=== PATIENT | male | born 1955 | race Caucasian/White ===

== ENCOUNTER 2017-08-12 10:31 | Inpatient (IN) | payer OTHER ==
[~2017-08-12] VITALS: Ht 182.9 cm; Wt 92.5 kg
--- NOTE | 2017-08-12 12:24 | ED ANKLE/FOOT INJURY COMPLAINT ---
History of Present Illness General Chief Complaint: Foot or Ankle Injury Stated Complaint: C/O RIGHT FOOT PAIN HX OF DIABETES Source: patient, old records Exam Limitations: no limitations Vital Signs & Intake/Output Vital Signs & Intake/Output Vital Signs Date Time Temp Pulse Resp B/P B/P Pulse O2 O2 Flow FiO2 Mean Ox Delivery Rate 08/14 1530 98.1 75 20 110/62 97 Room Air 08/14 0616 97.6 75 20 110/72 95 Room Air 08/13 2218 98.5 88 18 114/60 95 Room Air ED Intake and Output 08/14 0000 08/13 1200 Intake Total 1325 650 Output Total 900 1350 Balance 425 -700 Intake, IV 525 650 Intake, Oral 800 Output, Urine 900 1350 Allergies Coded Allergies: No Known Allergies (08/12/17) Triage Note: PT TO ED WITH C/O "2 DAYS AGO I NOTICED DISCOLORATION TO MY RIGHT MIDDLE TOES, NOT THE BIG TOE OR THE PINKY TOE". PT STATING HX OF DIABETES. Triage Nurses Notes Reviewed? yes Occurred: last week Duration: week(s): (1), constant Timing: recent history Severity: moderate Severity Numbers: 10 Pain/Injury Location: Right: Foot. Method of Injury: unknown No Modifying Factors: none Associated Symptoms: swelling, redness HPI: 62-year-old male with no known medical history presents to the ER for evaluation. He states for the past few weeks he is noticed to sores to the bottom of his right foot. He denies any known injury or trauma. He states about 2 days ago he began to notice that his right second and third toes have become discolored and turn purple. The patient does report to decrease sensation in his right foot and it has been swollen. He states that he has been attempting to care for the sores on the bottom of his foot for the past several weeks by himself and it is been draining purulent malodorous discharge. No fever no chills no chest pain no nausea vomiting. He denies urinary urgency frequency malaise. Patient states he's never been diagnosed with diabetes he is never seen a liquor establishment manager regarding these symptoms. (Flo GRIJALVA,Ian) Reconcile Medications No Known Home Medications (Seven CORRALES,[place]) Past History Travel History Traveled to [place] past 21 day No Medical History Any Pertinent Medical History? see below for history Neurological: NONE EENT: NONE Cardiovascular: NONE Respiratory: NONE Gastrointestinal: NONE Hepatic: NONE Renal: NONE Musculoskeletal: NONE Psychiatric: NONE Endocrine: diabetes Blood Disorders: NONE Cancer(s): NONE Surgical History Surgical History: non-contributory Psychosocial History What is your primary language Cuban Tobacco Use: Never used ETOH Use: denies use Illicit Drug Use: denies illicit drug use Family History Hx Contributory? No (Ian Hall) Review of Systems Review of Systems Constitutional: Reports: see HPI. Comments Review of systems: See HPI, All other systems negative. Constitutional, no chills no fever, HEENT: no congestion Cardiovascular: No chest pain Skin: no rashes, no change in skin resp: no dyspnea, no cough GI: No nausea no vomiting, no diarrhea, no bloating/constipation : no frequency Muscle skeletal: No joint pain, no back pain Neurologic: , no headache Psych: No stress Heme/endocrine: No bruising Immunology: No lymphadenopathy (Ian Hall) Physical Exam Physical Exam General Appearance: well developed/nourished, alert, awake Leg/Knee/Thigh Left: normal range of motion Comments: Well-developed well-nourished person in no acute distress HEENT: Normal EENT exam; PERRL, EOMI, HEAD is atraumatic. moist mucous membranes. Neck: Supple, normal range of motion Back: Full range of motion Cardiovascular: Regular rate and rhythms no murmur Respiratory: No respiratory distress. Patient speaking in full complete sentences. Breath sounds clear to auscultation bilaterally: NO W/R/R Abdomen: Soft, nontender nondistended, upper Extremity: No edema, full range of motion of extremities, normal and equal pulses bilaterally, 5 out of 5 strength noted to bilateral upper extremities lower extremities: the right foot is malodoroous, there is purulent discharge from 2 wounds to the plantart aspect of the foot and right 2nd/3/4th toes. the ulcers on the plantar aspect 3x2, 2x2 in dept, bone is exposed, purulent discharge, no surrounding erythema, over the does, there is a near amputation of the right 2nd toe, sloughing of the tissue noted to the distal toes, the foot is edematous, sensation is descreased compared to the left foot, diminished dp pulse to the right foot Neuro: Alert oriented x3, motor sensory normal, cranial nerves II through XII grossly intact. There were no obvious focal neurologic abnormalities. Skin: No appreciable rash on exposed skin, skin is warm and dry. Psych: Mood and affect is normal, memory and judgment is normal. (Flo GRIJALVA,Ian) Progress Differential Diagnosis: osteomyelitis, gangrene, compartment syndrome, arterial insuff, cellutliis, dka, hhs, electroelyte abnormalities Plan of Care: Orders Procedure Date/time Status CBC WITHOUT DIFFERENTIAL 08/15 0600 Active Consistent Carbohydrate 3 08/14 D Active Nothing by Mouth 08/14 B Complete PATHOLOGY SPECIMEN 08/14 1307 Complete Change service to 08/14 0917 Active Skin/Pressure Ulcer Assess (Sk 08/13 1810 Active Current Medications Sig/Rosanne Start time Last Medication Dose Stop Time Status Admin Insulin Detemir 8 UNITS BID 08/14 2200 AC (Levemir) Insulin Aspart 0 AT BEDTIME 08/13 2200 AC 08/13 (NovoLOG) 2212 Insulin Aspart 0 TIDAC 08/13 1700 AC 08/14 (NovoLOG) 1143 Ampicillin Sodium/ 3,000 MG Q6 08/12 2359 AC 08/14 Sulbactam Sodium 1143 (Unasyn) Sodium Chloride 100 ML (Normal Saline 0.9%) Acetaminophen 650 MG Q6P PRN 08/12 1615 AC (Tylenol) Acetaminophen 1,000 MG Q6P PRN 08/12 1615 AC (Ofirmev) Morphine Sulfate 2 MG Q6-PRN PRN 08/12 1615 AC (Morphine) Sodium Chloride 1,000 ML Q13H 08/12 1445 AC 08/13 (Normal Saline 0.9%) 2211 Laboratory Tests 08/14/17 0811: Anion Gap 10, Estimated GFR > 60, BUN/Creatinine Ratio 15.7, CBC w Diff NO MAN DIFF REQ, RBC 3.53 L, MCV 83.4, MCH 27.5, RDW 13.3, MPV 7.6, Gran % 73.1, Lymphocytes % 17.4 L, Monocytes % 6.4, Eosinophils % 2.8, Basophils % 0.3, Absolute Granulocytes 7.8 H, Absolute Lymphocytes 1.9, Absolute Monocytes 0.7 H, Absolute Eosinophils 0.3, Absolute Basophils 0, PUBS MCHC 33.0 LABS ,XRAY AND US ORDERED. PT DECLINING ANYTHING FOR PAIN WHEN OFFERED. 1340 CASE D/W DR DOE, ADVSIED NO ABX AT THIS TIME, HE WILL ATTEMPT OT TAKE HIM TO OR THIS AFTERNOON, PT LAST ATE AT 830. CASE D/W DR AMEZCUA AGREES WITH PLAN I D/W THE PT AT [facility] AND [facility]RAY, PENDING US, AND NEED FOR ADMISSION 1410 case d/w dr gordon, will admit, d/w her request of podiatry for no iv abx until after OR 1650 DR DOE IN DEPT TO SEE PT PATIENT: JAIME MCKAY PRESENT AGE: 62 PATIENT ACCOUNT NO: [id number] : 56 LOCATION: [facility] ORDERING PHYSICIAN: Ian GRIJALVA SERVICE DATE: 08/12/17 EXAM TYPE: US - US-DUPLEX SCAN LOWER EXT ARTER EXAMINATION: COLOR-FLOW DUPLEX IMAGING OF THE RIGHT LOWER EXTREMITY ARTERIAL SYSTEM. VELOCITY MEASUREMENTS THROUGHOUT THE FEMORAL ARTERIES WITH PERIPHERAL ARTERIAL TESTING. CLINICAL INFORMATION: There is a 62-year-old male with a history of peripheral arterial disease. Discolored right foot. Numbness. Unable to palpate pulses. RIGHT FEMORAL RUNOFF VELOCITIES: The right common femoral artery measures 134 cm/s The right profunda femoral artery is 94 cm/s Right proximal superficial femoral artery measures 131 cm/s Mid superficial femoral artery is 150 cm/s Distal right superficial femoral artery measures 125 cm/s Right popliteal velocity measures 118 cm/s The posterior tibial artery velocity measures 123 cm/s The anterior tibial artery velocity measures 113 cm/s The dorsalis pedis artery velocity measures 109 cm/s. IMPRESSION: 1. Normal peripheral arterial testing with normal ankle-brachial indices and velocity measurements. DICTATED BY: Jaime Centeno MD DATE/TIME DICTATED:08/12/171446 FAMILY PSYCHOLOGIST:YVETTE DATE/TIME TRANSCRIBED:08/12/171446 CONFIDENTIAL, DO NOT COPY WITHOUT APPROPRIATE AUTHORIZATION. <Electronically signed in Other Vendor System> SIGNED BY: Jaime Centeno MD [id number] PATIENT: JAIME MCKAY PRESENT AGE: 62 PATIENT ACCOUNT NO: [id number] : 56 LOCATION: [facility] ORDERING PHYSICIAN: Ian GRIJALVA SERVICE DATE: 08/12/17 EXAM TYPE: RAD - XRY-FOOT COMPLETE, R EXAMINATION: XR FOOT, RIGHT CLINICAL INFORMATION: Right foot ulcers COMPARISON: None TECHNIQUE: AP, lateral, and oblique views of the right foot. FINDINGS: There are erosions on both sides of the first MTP joint, with mild hallux valgus deformity. There is periosteal reaction along the diaphysis of the first metatarsal. There is soft tissue gas spanning much of the width of the foot, seen along the plantar surface and the lateral view, at the level of the MTP joints which limits evaluation of the osseous structures. The head of the second metatarsal is not clearly delineated and may be eroded or fractured. The base of the second proximal phalanx is shifted laterally and may be affected by erosions. There is dislocation at the second PIP joint, with medial displacement of the middle phalanx and lateral angulation. There may be dorsal subluxation of the third proximal phalanx at the MTP joint. There is suggestion of fracture at the base of the fourth proximal phalanx, with the distal portion displaced medially. There is diffuse soft tissue swelling of the foot. There are degenerative changes in the tarsotarsal articulations. Mild posterior and plantar calcaneal spurring is noted. IMPRESSION: Abnormalities in the regions of the first through fourth MTP joints as detailed above. These include erosions at the first MTP joint, subluxation of the second through fourth MTP joints, and fracture versus erosion at the head of the second metatarsal. Additional erosions may be present, with detail of osseous evaluation limited due to superimposed soft tissue gas. Though these findings are age-indeterminate, the presence of soft tissue gas and swelling with adjacent osseous irregularities is suspicious for osteomyelitis in the proper clinical setting. DICTATED BY: Matthew Sterling MD DATE/TIME DICTATED:08/12/171334 FAMILY PSYCHOLOGIST:YVETTE DATE/TIME TRANSCRIBED:08/12/171334 CONFIDENTIAL, DO NOT COPY WITHOUT APPROPRIATE AUTHORIZATION. <Electronically signed in Other Vendor System> SIGNED BY: Matthew Sterling MD 08/12/17 0926 Diagnostic Imaging: Viewed by Me: Radiology Read, Ultrasound. Discussed w/RAD: Radiology Read, Ultrasound. Initial ED EKG: normal intervals, normal p-waves, normal QRS complex, normal sinus rhythm (Ian Hall) Departure Departure Time of Disposition: 1409 Disposition: STILL A PATIENT Condition: Stable Clinical Impression Primary Impression: Osteomyelitis Qualifiers: Osteomyelitis type: unspecified type Osteomyelitis location: foot Laterality: right Qualified Code: M86.9 - Osteomyelitis, unspecified Secondary Impressions: Hyperglycemia Leukocytosis Qualifiers: Leukocytosis type: unspecified Qualified Code: D72.829 - Elevated white blood cell count, unspecified Referrals: Patient Has No Primary Care Dr (PCP/Family) Departure Forms: Customer Survey General Discharge Information Admission Note Spoke With: Sammie Cota MD Documentation of Exam: Documentation of any treatments & extenuating circumstances including Concerns Regarding Discharge (functional status, medication knowledge or non-compliance, living conditions, etc.) that warrant an admission rather than observation: podiatry consult, pt will require OR possible amputation, trend labs and cultures, iv abx after or (Ian Hall) Departure Prescriptions: Current Visit Scripts No Known Home Medications PA/BOOTH OPERATOR Co-Sign Statement Statement: ED Attending supervision documentation- [X] I saw and evaluated the patient. I have also reviewed all the pertinent lab results and diagnostic results. I agree with the findings and the plan of care as documented in the PA's/BOOTH OPERATOR's documentation. [X] I have reviewed the ED Record and agree with the PA's/BOOTH OPERATOR's documentation. [] Additions or exceptions (if any) to the PAs/BOOTH OPERATOR's note and plan are summarized below: [] ([place] Amezcua MD) Referrals: Patient Has No Primary Care Dr (PCP/Family) Departure Forms: Customer Survey General Discharge Information Admission Note Spoke With: Sammie Cota MD Documentation of Exam: Documentation of any treatments & extenuating circumstances including Concerns Regarding Discharge (functional status, medication knowledge or non-compliance, living conditions, etc.) that warrant an admission rather than observation: podiatry consult, pt will require OR possible amputation, trend labs and cultures, iv abx after or (Ian Hall) Departure Prescriptions: Current Visit Scripts No Known Home Medications PA/BOOTH OPERATOR Co-Sign Statement Statement: ED Attending supervision documentation- [X] I saw and evaluated the patient. I have also reviewed all the pertinent lab results and diagnostic results. I agree with the findings and the plan of care as documented in the PA's/BOOTH OPERATOR's documentation. [X] I have reviewed the ED Record and agree with the PA's/BOOTH OPERATOR's documentation. [] Additions or exceptions (if any) to the PAs/BOOTH OPERATOR's note and plan are summarized below: [] (Seven CORRALES,[place])
[2017-08-12 13:11] LABS: ABSOLUTE BASOPHIL COUNT 0 /CUMM (0.0-0.2); ABSOLUTE EOSINOPHIL COUNT 0.1 /CUMM (0.0-0.7); ABSOLUTE LYMPH COUNT 1.9 /CUMM (1.2-3.4); BASOPHIL % 0.1 % (0.0-2.0); EOSINOPHIL % 0.7 % (0-5); GRANULOCYTE % 86.2 % (42.2-75.2); HEMATOCRIT 33.9 % (42-52); MEAN CORPUSCULAR HGB 27.5 PG (27.0-31.0); MEAN CORPUSCULAR HGB CONC 33.5 G/DL (33.0-37.0); MEAN CORPUSCULAR VOLUME 82.2 FL (80.0-94.0); MEAN PLATELET VOLUME 7.5 FL (7.4-10.4); PLATELET COUNT 511 /CUMM (130-400); RBC DISTRIBUTION WIDTH 13.8 % (11.5-14.5); RED BLOOD CELL CT 4.13 /CUMM (4.70-6.10); WHITE BLOOD CELL COUNT 22.1 /CUMM (4.8-10.8)
--- NOTE | 2017-08-12 13:48 | RADIOLOGY REPORT ---
EXAMINATION: XR FOOT, RIGHT CLINICAL INFORMATION: Right foot ulcers COMPARISON: None TECHNIQUE: AP, lateral, and oblique views of the right foot. FINDINGS: There are erosions on both sides of the first MTP joint, with mild hallux valgus deformity. There is periosteal reaction along the diaphysis of the first metatarsal. There is soft tissue gas spanning much of the width of the foot, seen along the plantar surface and the lateral view, at the level of the MTP joints which limits evaluation of the osseous structures. The head of the second metatarsal is not clearly delineated and may be eroded or fractured. The base of the second proximal phalanx is shifted laterally and may be affected by erosions. There is dislocation at the second PIP joint, with medial displacement of the middle phalanx and lateral angulation. There may be dorsal subluxation of the third proximal phalanx at the MTP joint. There is suggestion of fracture at the base of the fourth proximal phalanx, with the distal portion displaced medially. There is diffuse soft tissue swelling of the foot. There are degenerative changes in the tarsotarsal articulations. Mild posterior and plantar calcaneal spurring is noted. IMPRESSION: Abnormalities in the regions of the first through fourth MTP joints as detailed above. These include erosions at the first MTP joint, subluxation of the second through fourth MTP joints, and fracture versus erosion at the head of the second metatarsal. Additional erosions may be present, with detail of osseous evaluation limited due to superimposed soft tissue gas. Though these findings are age-indeterminate, the presence of soft tissue gas and swelling with adjacent osseous irregularities is suspicious for osteomyelitis in the proper clinical setting.
--- NOTE | 2017-08-12 14:34 | History & Physical ---
Paulo CORRALES,[facility] 08/12/17 1434: General Information and HPI MD Statement: I have seen and personally examined CYNTHIA MCKAY and documented this H&P. The patient is a 62 year old M who presented with a patient stated chief complaint of [R foot ulcer]. History of Present Illness: 62 yo M with no significant pmhx presents with complaints of R foot ulcer which has been bothering him for 2 weeks. The patient states that he noticed the color changing starting about 1 month ago but then states his foot started to swell much more recently in the past 2 weeks. The patient denies knowing if he has any diabetes. He states he has no PCP. He denies any injury to the R foot. He states that he has diagnosed himself with neuropathy based on his own symptoms and the literature he has read. Of note, he has also noticed increased urinary frequency x6 months and weight loss in the past month. Allergies/Medications Allergies: Coded Allergies: No Known Allergies (08/12/17) Home Med list No Known Home Medications Past History Travel History Traveled to [place] past 21 day No Medical History Neurological: NONE EENT: NONE Cardiovascular: NONE Respiratory: NONE Gastrointestinal: NONE Hepatic: NONE Renal: NONE Musculoskeletal: NONE Psychiatric: NONE Endocrine: diabetes Blood Disorders: NONE Cancer(s): NONE Surgical History Surgical History: non-contributory Past Family/Social History Psychosocial History ETOH Use: denies use Illicit Drug Use: denies illicit drug use Review of Systems Review of Systems Constitutional: Reports: see HPI, unexplained weight loss. Denies: chills, diaphoresis, fever. Cardiovascular: Reports: no symptoms. Respiratory: Reports: no symptoms. GI: Reports: no symptoms. Genitourinary: Reports: frequency. Musculoskeletal: Reports: see HPI. Skin: Reports: see HPI, change in skin color, erythema. Exam & Diagnostic Data Last 24 Hrs of Vital Signs/I&O Vital Signs Date Time Temp Pulse Resp B/P B/P Pulse O2 O2 Flow FiO2 Mean Ox Delivery Rate 08/122 98.1 75 18 110/70 97 08/12 2000 98.5 74 20 122/66 96 Room Air 08/12 1402 Room Air Room Air 08/12 1226 98.0 100 18 138/80 98 Room Air 08/12 1039 98.5 106 18 146/81 98 Room Air Room Air Intake & Output 08/12 1600 08/12 0800 08/12 0000 Intake Total Output Total Balance Patient 240 lb Weight Weight Reported by Patient Measurement Method Physical Exam General Appearance Alert, Oriented X3, Cooperative, No Acute Distress Skin Diffuse gangrene of the bottom of his R ball of his foot with bone exposed. Gangerene of his 2nd-5th right toes. , RLE erythema and warmth to the touch, LLE venous stasis changes Cardiovascular Regular Rate, Normal S1, Normal S2 Lungs Clear to Auscultation, Normal Air Movement Abdomen Normal Bowel Sounds, Soft, No Tenderness Extremities Patietn states he is able to feel sensation in his left foot Last 24 Hrs of Labs/Frank: Laboratory Tests 08/12/17 1247: Anion Gap 13, Estimated GFR > 60, BUN/Creatinine Ratio 17.3, Glucose 349 H, Serum Osmolality 296 H, Lactic Acid 1.0, Calcium 9.7, Total Bilirubin 1.2, AST 32, ALT 62, Alkaline Phosphatase 133 H, C-Reactive Prot, Quant > 9.0 H, Total Protein 7.9, Albumin 3.3 L, Globulin 4.6 H, Albumin/Globulin Ratio 0.7 L, CBC w Diff MAN DIFF ORDERED, RBC 4.13 L, MCV 82.2, MCH 27.5, RDW 13.8, MPV 7.5, Gran % 86.2 H, Lymphocytes % 8.4 L, Monocytes % 4.6, Eosinophils % 0.7, Basophils % 0.1, Absolute Granulocytes 19.0 H, Segmented Neutrophils 77 H, Band Neutrophils 6 H, Absolute Lymphocytes 1.9, Lymphocytes 8 L, Monocytes 8, Absolute Monocytes 1.0 H, Absolute Eosinophils 0.1, Basophils 1, Absolute Basophils 0, Platelet Estimate INCREASED, Hypochromic-Microcytic 2+, Anisocytosis 1+, PUBS MCHC 33.5, ESR Westergren 127 H Microbiology 08/12 1729 EXTREMITIE: Gross Specimen Examination - RECD 08/12 1729 EXTREMITIE: Gram Stain - RECD 08/12 1729 EXTREMITIE: Gross Specimen Examination - RECD 08/12 1729 EXTREMITIE: Gram Stain - RECD 08/12 1257 BLOOD: Blood Culture - RECD 08/12 1247 BLOOD: Blood Culture - RECD Assessment/Plan Assessment: 62 yo M with no significant pmhx presents gangrenous right foot most likely due to unofficially diagnosed diabetes #gangernous foot wbc 22.1, CRP >9.0 Foot xray:erosions at the first MTP joint, subluxation of the second through fourth MTP joints, and fracture versus erosion at the head of the second metatarsal. presence of soft tissue gas and swelling with adjacent osseous irregularities Aterial duplex of LE = negative -patient will go to OR today -follow post op podiatry instructions -ID follow up tomorrow -f/u blood and biopsy cultures -possible MRI tomorrow (per ID) #?diabetes Blood sugars elevated 300+ upon admission Pt also reports neuropathy, dysuria, and weightloss Bun 19, Cr 1.1 -cont novoolog sliding scale and levemir -endo consult -check hgba1c #electrolyte abnormalities na 132 K 5.2 -will give kayexalate x1 dose -cont IVF with NS -monitor Na #dvt prophylaxis -sub q heparin #FULL CODE As Ranked By This Provider Problem List: 1. Osteomyelitis Qualifiers Osteomyelitis type: unspecified type Osteomyelitis location: foot Laterality: right Qualified Code: M86.9 - Osteomyelitis, unspecified 2. Diabetes Core Measures/Misc (04/19) Acute Coronary Syndrome ACS Diagnosis: No Congestive Heart Failure Congestive Heart Failure Diagnosis No Cerebrovascular Accident CVA/TIA Diagnosis: No VTE (View Protocol) VTE Risk Factors Acute Medical Illness No Mechanical VTE Prophylaxis d/t Other No VTE Pharm Prophylaxis d/t NA PharmProphylax ordered Sepsis (View protocol) Sepsis Present: No Sharath Ibrahim 08/12/17 1546: Attending MD Review Statement Attending Statement Attending MD Statement: examined this patient, discuss w/resident/PA/SAW SUPERINTENDENT, agreed w/resident/PA/SAW SUPERINTENDENT, discussed with family, reviewed EMR data (avail), discussed with nursing, discussed with case mgmt, reviewed images, amended to note Attending Assessment/Plan: 62 o/m with no PCP in past comes with right foot wet to dry gangrene with complete loss of sensation and pain in his right foot. His complaints are onoging for past 1 month. Patient is found to have new onset DM with possible diabetic neuropathy and charcot foot. Patient had foul smelling drainage coming out of right foot wound. Pateint denies fever , chills, headchae, blurriness of vision, chest jones, shortness of breath. Podiatry consulted in ER. Labs and imaging seen. WBC 22 , Na 132, Glu high k 5.2 Cr 1.1 LA 1.0 H/H 11.4/ 33.9 Doppler with normal studies. Xray foot with OM with gaseous changes. Patient admitted to inpatient medical services for right foot osteomyelitis with gangrene and new onset diabetes mellitus with uncontrolled hyperglycemia. Consult ID for antibioitcs, empiric treatment, send blood cultures, wound culture. Podaitry possible OR today. Keep Him NPO. Endo consult for new onset DM. RISS and titrate insulin as needed. MRI foot if ok with ID. gi/dvt prophyalxis full code. time spent >37 min.. Carlos Pink 08/12/171818: Resident Review Statement Resident Statement: examined this patient, discussed with intelligence intern, agreed with intelligence intern, reviewed EMR data (avail), reviewed images Other Findings: is a 62 yo man with significant PMHx. presented to ed with a c/o right foot black discoloration, ulcer and foul smelling discharge. Patient report changes on the skin color of his right foot over the last month, he report that every thing happened quickly during the weekend, he denies any pain, fever, chills, trauma, recent infection on antibiotic use. He denies history of diabetes, he report that he has neuropathy, when we asked about who made the diagnosis, he report that he read about it. He deosn't have PCP. Patient report noticing frequent urination over the last month, no chest pain, SOB, palpitation and no change in bowel habits. Vitals, examination, labs and imaging as above. Assessment: #Right foot gas gangreen 2/2 diabetes #Newly diagnosed diabetes #Hyperkalemia Plan: Admitt to general medicine floor Dr. Porter aware, patient is going to OR for ambutation and debridement today. Blood culture sent by ED will f/u Bone biopsy and culture ID consult Endocrine consult Will check HBA1C Will give one dose of kayexalate and check K at am Will discuss the need for MRI at am Arterial doppler sent by ED will f/u Acchucheck, insulin sliding scale Hydration with IV NS DVT ppx with SC heparin Full code
--- NOTE | 2017-08-12 14:52 | ULTRASOUND REPORT ---
EXAMINATION: COLOR-FLOW DUPLEX IMAGING OF THE RIGHT LOWER EXTREMITY ARTERIAL SYSTEM. VELOCITY MEASUREMENTS THROUGHOUT THE FEMORAL ARTERIES WITH PERIPHERAL ARTERIAL TESTING. CLINICAL INFORMATION: There is a 62-year-old male with a history of peripheral arterial disease. Discolored right foot. Numbness. Unable to palpate pulses. RIGHT FEMORAL RUNOFF VELOCITIES: The right common femoral artery measures 134 cm/s The right profunda femoral artery is 94 cm/s Right proximal superficial femoral artery measures 131 cm/s Mid superficial femoral artery is 150 cm/s Distal right superficial femoral artery measures 125 cm/s Right popliteal velocity measures 118 cm/s The posterior tibial artery velocity measures 123 cm/s The anterior tibial artery velocity measures 113 cm/s The dorsalis pedis artery velocity measures 109 cm/s. IMPRESSION: 1. Normal peripheral arterial testing with normal ankle-brachial indices and velocity measurements.
--- NOTE | 2017-08-12 18:06 | Operative Report ---
Operative/Inv Procedure Report Surgery Date: 08/12/17 Name of Procedure: 1 open transmetatarsal amputation right foot 2 intraoperative administration of ankle block anesthesia 3 excisional debridement Pre-Operative Diagnosis: 1 gas gangrene right foot Post-Operative Diagnosis: The same Estimated Blood Loss: less than 50ml Surgeon/Interactive Designer: MAYO DOE DPM Anesthesia: moderate sedation, block Operative/Procedure Note Note: After obtaining informed consent the patient was brought to the operating room and placed on the operating table in the supine position. The patient was then securely fastened to the operating table utilizing a safety belt. After administration of IV sedation, 10 mL of 0.5% Marcaine plain was infiltrated about the patient's right ankle. The right foot and ankle within scrubbed prepped and draped in the usual aseptic manner. Attention directed to the right forefoot, where a necrotic wound was identified involving the second third fourth and fifth digits extending proximally to the distal metatarsals. Foul- smelling and necrotic drainage was identified within the wound bed. A fishmouth -type incision encompassing the first second third fourth and fifth rays was marked out with a skin marker. Full-thickness flaps were then developed dorsally. Sagittal bone saw was utilized performed through and through osteotomies of the first second third fourth and fifth distal metatarsals. The distal osseous segments were freed and the plantar flap was then resected. Specimen was sent for both her biologic and pathologic inspection. The open wound was then irrigated with 3 L of normal sterile saline infusion 50,000 units of bacitracin. Following this, the foot was redraped and the surgeon's top of gestation clean gloves. Any bleeding vessels identified were cauterized or ligated as encountered. The wound was then packed with iodoform and 2-0 nylon retention sutures were placed. Foot was then dressed with 4 x 4's Kerlix and an Timothy wrap. The patient was noted to tolerate both procedure and anesthesia well and the patient was transported from the operating room to recovery with vital signs stable.
[2017-08-12 20:00] VITALS: BP 122/66
[2017-08-12 22:22] VITALS: BP 110/70
[2017-08-13 06:38] VITALS: BP 96/60
[2017-08-13 09:28] LABS: ABSOLUTE BASOPHIL COUNT 0 /CUMM (0.0-0.2); ABSOLUTE EOSINOPHIL COUNT 0.1 /CUMM (0.0-0.7); ABSOLUTE GRANULOCYTE CT 12.5 /CUMM (1.4-6.5); ABSOLUTE LYMPH COUNT 1.5 /CUMM (1.2-3.4); ABSOLUTE MONOCYTE COUNT 0.9 /CUMM (0.10-0.60); BASOPHIL % 0.3 % (0.0-2.0); EOSINOPHIL % 0.8 % (0-5); HEMATOCRIT 29.8 % (42-52); MEAN CORPUSCULAR HGB 27.4 PG (27.0-31.0); MEAN PLATELET VOLUME 7.7 FL (7.4-10.4); PLATELET COUNT 424 /CUMM (130-400); RBC DISTRIBUTION WIDTH 13.4 % (11.5-14.5); RED BLOOD CELL CT 3.58 /CUMM (4.70-6.10)
--- NOTE | 2017-08-13 10:10 | PN- Student ---
Subjective Subjective: 62 yo M hospital day 2 and POD 1 for osteomyleitits. Denies a PMHx. States his R foot has been "swollen" for the past 3 weeks and that over the weekend he noticed a "color change" in his toes. His glucose in the ED was 349 and was subsequently diagnosed with DM2. R foot underwent open transmetatarsal amputation and debridement last night with no complications. Patient states no issues last night, slept well. Pain is 0/10, denies N/V, headache, dizziness, chest pain, or abdominal discomfort. Objective Objective: Vital Signs Date Time Temp Pulse Resp B/P B/P Pulse O2 O2 Flow FiO2 Mean Ox Delivery Rate 08/13 0638 98.3 76 20 96/60 94 Room Air 08/12 2222 98.1 75 18 110/70 97 08/12 2000 98.5 74 20 122/66 96 Room Air 08/12 1402 Room Air Room Air 08/12 1226 98.0 100 18 138/80 98 Room Air 08/12 1039 98.5 106 18 146/81 98 Room Air Room Air Intake & Output 08/13 1600 08/13 0800 08/13 0000 Intake Total 650 200 Output Total 950 450 Balance -300 -250 Intake, IV 650 200 Output, Urine 950 450 Patient 204 lb Weight Weight Bed scale Measurement Method Appearance: Alert and oriented, in NAD Cardiovascular: RRR, no MRG Pulmonary: Clear to auscultation bilaterally, no adventitious sounds present Abdomen: Normoactive bowel sounds, no TTP, soft with no rigidity Extremities: Right foot is wrapped in an OLAF bandage that is clean, dry, and intact. 2+ radial pules bilaterally, 2+ DP on left foot, 1+ Posterior tibialis R foot. Compression stockings in place and working. No TTP or erythema of calves Integument: Darkening of skin overlaying the shins bilaterally. Results Results: Laboratory Tests 08/13/17 0747: Anion Gap 10, Estimated GFR > 60, BUN/Creatinine Ratio 15.7, Hemoglobin A1c Pending, CBC w Diff NO MAN DIFF REQ, RBC 3.58 L, MCV 83.0, MCH 27.4, RDW 13.4, MPV 7.7, Gran % 83.0 H, Lymphocytes % 9.9 L, Monocytes % 6.0, Eosinophils % 0.8, Basophils % 0.3, Absolute Granulocytes 12.5 H, Absolute Lymphocytes 1.5, Absolute Monocytes 0.9 H, Absolute Eosinophils 0.1, Absolute Basophils 0, PUBS MCHC 33.0 08/12/17 1435: PT Cancelled, INR Cancelled, APTT Cancelled 08/12/17 1247: Anion Gap 13, Estimated GFR > 60, BUN/Creatinine Ratio 17.3, Glucose 349 H, Serum Osmolality 296 H, Lactic Acid 1.0, Calcium 9.7, Total Bilirubin 1.2, AST 32, ALT 62, Alkaline Phosphatase 133 H, C-Reactive Prot, Quant > 9.0 H, Total Protein 7.9, Albumin 3.3 L, Globulin 4.6 H, Albumin/Globulin Ratio 0.7 L, CBC w Diff MAN DIFF ORDERED, RBC 4.13 L, MCV 82.2, MCH 27.5, RDW 13.8, MPV 7.5, Gran % 86.2 H, Lymphocytes % 8.4 L, Monocytes % 4.6, Eosinophils % 0.7, Basophils % 0.1, Absolute Granulocytes 19.0 H, Segmented Neutrophils 77 H, Band Neutrophils 6 H, Absolute Lymphocytes 1.9, Lymphocytes 8 L, Monocytes 8, Absolute Monocytes 1.0 H, Absolute Eosinophils 0.1, Basophils 1, Absolute Basophils 0, Platelet Estimate INCREASED, Hypochromic-Microcytic 2+, Anisocytosis 1+, PUBS MCHC 33.5, ESR Westergren 127 H Microbiology 08/12 173 EXTREMITIE: Gross Specimen Examination - RES 08/12 173 EXTREMITIE: Gram Stain - RES 08/12 173 EXTREMITIE: Gross Specimen Examination - RES 08/12 1729 EXTREMITIE: Gram Stain - RES 08/12 1257 BLOOD: Blood Culture - RECD 08/12 1247 BLOOD: Blood Culture - RECD Assessment/Plan Assessment: 62 yo M hospital day 2 for osteomyleitits. Plan: 1. Continue DVT prophylaxis: Heparin 5000 sc q8hrs 2. Abx: Unasyn 3g q6hrs IV 3. Morphine 2 mg PRN q 6hr IV 4. Diet: NPO for return to the OR
--- NOTE | 2017-08-13 11:15 | PN- Housestaff ---
Subjective Follow-up For: gangrene/osteomyelitis s/p MTA amputation new onset diabetes Subjective: S/p open MTA amputation last night. No other acute events overnight. States he has no pain. Has no other complaints. Review of Systems Constitutional: Reports: no symptoms. Cardiovascular: Reports: no symptoms. Respiratory: Reports: no symptoms. Gastrointestinal: Reports: no symptoms. Genitourinary: Reports: no symptoms. Musculoskeletal: Reports: see HPI (s/p R MTA ). Objective Last 24 Hrs of Vital Signs/I&O Vital Signs Date Time Temp Pulse Resp B/P B/P Pulse O2 O2 Flow FiO2 Mean Ox Delivery Rate 08/13 1353 99.3 80 18 118/90 95 Room Air 08/13 0638 98.3 76 20 96/60 94 Room Air 08/12 2222 98.1 75 18 110/70 97 08/12 2000 98.5 74 20 122/66 96 Room Air Intake & Output 08/13 1600 08/13 0800 08/13 0000 Intake Total 1325 650 200 Output Total 900 950 450 Balance 425 -300 -250 Intake, IV 525 650 200 Intake, Oral 800 Output, Urine 900 950 450 Patient 204 lb Weight Weight Bed scale Measurement Method Physical Exam General Appearance: Alert, Oriented X3, Cooperative, No Acute Distress Skin: RLE skin tear with warmth and erythema ?cellulitis, s/p open MTA. foot is currently covered. Cardiovascular: Regular Rate, Normal S1, Normal S2 Lungs: Clear to Auscultation, Normal Air Movement Abdomen: Normal Bowel Sounds, Soft, No Tenderness Extremities: LLE chronic venous stasis changes Vascular: 2+ radial pulses Current Medications: Current Medications Sig/Rosanne Start time Last Medication Dose Route Stop Time Status Admin Acetaminophen 650 MG Q6P PRN 08/12 1615 AC PO Acetaminophen 1,000 MG Q6P PRN 08/12 1615 AC IV Ampicillin Sodium/ 3,000 MG Q6 08/12 2359 AC 08/13 Sulbactam Sodium IV 1749 Sodium Chloride 100 ML Heparin Sodium 5,000 UNIT Q8 08/12 2200 AC 08/13 (Porcine) SC 1445 Insulin Aspart 0 AT BEDTIME 08/13 220 AC SC Insulin Aspart 0 TIDAC 08/13 1700 AC 08/13 SC 1748 Insulin Detemir 6 UNITS QPM 08/13 220 AC SC Insulin Human Regular 2 UNITS .STK-MED ONE 08/13 0619 DC IV 08/13 0620 Insulin Human Regular 6 UNITS .STK-MED ONE 08/13 0055 DC IV 08/13 0056 Insulin Human Regular 0 Q6 08/12 1800 DC 08/13 SC 1300 Morphine Sulfate 2 MG Q6-PRN PRN 08/12 1615 AC IV Sodium Chloride 1,000 ML Q13H 08/12 1445 AC 08/13 IV 0451 Sodium Chloride 1,000 ML ONCE ONE 08/12 1345 DC 08/12 IV 08/12 202 1410 Last 24 Hrs of Lab/Frank Results Last 24 Hrs of Labs/Mics: Laboratory Tests 08/13/17 0747: Anion Gap 10, Estimated GFR > 60, BUN/Creatinine Ratio 15.7, Hemoglobin A1c 12.6 H, CBC w Diff NO MAN DIFF REQ, RBC 3.58 L, MCV 83.0, MCH 27.4, RDW 13.4, MPV 7.7, Gran % 83.0 H, Lymphocytes % 9.9 L, Monocytes % 6.0, Eosinophils % 0.8, Basophils % 0.3, Absolute Granulocytes 12.5 H, Absolute Lymphocytes 1.5, Absolute Monocytes 0.9 H, Absolute Eosinophils 0.1, Absolute Basophils 0, PUBS MCHC 33.0 Assessment/Plan Assessment: 62 yo M with no significant pmhx presents gangrenous right foot s/p open MTA most likely due to diabetes #gangernous R foot Currently s/p open MTA wbc 22.1 -> 15.1, CRP >9.0 LE arterial doppler normal Foot xray:erosions at the first MTP joint, subluxation of the second through fourth MTP joints, and fracture versus erosion at the head of the second metatarsal. presence of soft tissue gas and swelling with adjacent osseous irregularities Aterial duplex of LE = negative -continue unasyn per ID -f/u vascular surgery consult -f/u blood and biopsy cultures #?diabetes Blood sugars elevated 300+ upon admission Pt also reports neuropathy, dysuria, and weightloss Bun 19, Cr 1.1 HgbA1c 12.6 -begin levemir 6 units at bed time -follow endocrinology sliding scale -f/u endo recommendations #electrolyte abnormalities na 132 -> 136 K 5.2 -> 4.6 -continue to monitor and correct as needed #dvt prophylaxis -sub q heparin #FULL CODE Problem List: 1. Osteomyelitis 2. Diabetes Pain Ratin Pain Location: none Pain Goal: Pain 4 or less Pain Plan: pain pathway Tomorrow's Labs & Rationales: cbc bep
--- NOTE | 2017-08-13 11:32 | Cons- Infect Disease ---
General Information and HPI Consulting Request Date of Consult: 08/13/17 Requested By: Sharath Ibrahim MD Reason for Consult: Osteomyelitis of the right foot Source of Information: patient History of Present Illness: This is a 62-year-old man with no past medical history admitted on August 12 after presenting to the emergency room with a one-month history of swelling over the dorsum of the right foot and a callous on the plantar aspect, with intermittent drainage, and a 4 to 5 day history of discoloration of the toes of the right foot with minimal pain and no associated fevers or chills. On admission he was afebrile. Laboratory data revealed a white blood cell count of 22,000, with 77 segs and 6 bands, ESR 127, glucose 349, BUN/creatinine 19 1.1, alk phosphatase 133. X-ray of the right foot revealed erosions at the first MTP joint, subluxation of the second through fourth MTP joints and fracture versus erosion at the head of the second metatarsal; soft tissue gas spanning much of the width of the foot. Arterial Doppler of the right lower extremity was normal. He was given Vancomycin and Ceftazidime and taken to the OR for an open transmetatarsal amputation of the right foot. Postop he was placed on Unasyn. He has remained afebrile and at present offers no complaints. 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 Home Services at Home: None Smoking Status: Never Smoked ETOH Use: denies use Illicit Drug Use: denies illicit drug use Review of Systems Review of Systems All Other Systems: Reviewed and Negative Exam & Diagnostic Data Last 24 Hrs of Vital Signs/I&O Vital Signs Date Time Temp Pulse Resp B/P B/P Pulse O2 O2 Flow FiO2 Mean Ox Delivery Rate 08/13 0638 98.3 76 20 96/60 94 Room Air 08/12 2222 98.1 75 18 110/70 97 08/12 2000 98.5 74 20 122/66 96 Room Air 08/12 1402 Room Air Room Air 08/12 1226 98.0 100 18 138/80 98 Room Air Intake & Output 08/13 1600 08/13 0800 08/13 0000 Intake Total 650 200 Output Total 950 450 Balance -300 -250 Intake, IV 650 200 Output, Urine 950 450 Patient 204 lb Weight Weight Bed scale Measurement Method Physical Exam Other Physical Findings: Afebrile. He is awake and alert in no acute distress. Skin reveals no rash. HEENT negative. Neck is supple with no adenopathy. Lungs are clear. Heart regular rhythm with no murmur. Abdomen is soft, nontender with positive bowel sounds. Back no CVA tenderness. Extremities right foot dressing intact; venous stasis changes both lower extremities, with a superficial ulceration over the anterior tibial aspect of the right leg; left foot callous on the medial aspect of the left third toe. Neuro neuropathy both feet. Last 24 Hours of Lab Results: Laboratory Tests 08/13 08/12 0747 1435 Chemistry Sodium (137 - 145 mmol/L) 137 Potassium (3.5 - 5.1 mmol/L) 4.6 Chloride (98 - 107 mmol/L) 100 Carbon Dioxide (22 - 30 mmol/L) 27 Anion Gap (5 - 16) 10 BUN (9 - 20 mg/dL) 11 Creatinine (0.7 - 1.2 mg/dL) 0.7 Estimated GFR (>60 ml/min) > 60 BUN/Creatinine Ratio (7 - 25 %) 15.7 Hemoglobin A1c (4.2 - 5.8 %) 12.6 H Coagulation PT Cancelled INR Cancelled APTT Cancelled Hematology CBC w Diff NO MAN DIFF REQ WBC (4.8 - 10.8 /CUMM) 15.0 H RBC (4.70 - 6.10 /CUMM) 3.58 L Hgb (14.0 - 18.0 G/DL) 9.8 L Hct (42 - 52 %) 29.8 L MCV (80.0 - 94.0 FL) 83.0 MCH (27.0 - 31.0 PG) 27.4 RDW (11.5 - 14.5 %) 13.4 Plt Count (130 - 400 /CUMM) 424 H MPV (7.4 - 10.4 FL) 7.7 Gran % (42.2 - 75.2 %) 83.0 H Lymphocytes % (20.5 - 51.1 %) 9.9 L Monocytes % (1.7 - 9.3 %) 6.0 Eosinophils % (0 - 5 %) 0.8 Basophils % (0.0 - 2.0 %) 0.3 Absolute Granulocytes (1.4 - 6.5 /CUMM) 12.5 H Absolute Lymphocytes (1.2 - 3.4 /CUMM) 1.5 Absolute Monocytes (0.10 - 0.60 /CUMM) 0.9 H Absolute Eosinophils (0.0 - 0.7 /CUMM) 0.1 Absolute Basophils (0.0 - 0.2 /CUMM) 0 PUBS MCHC (33.0 - 37.0 G/DL) 33.0 08/12 1247 Chemistry Sodium (137 - 145 mmol/L) 132 L Potassium (3.5 - 5.1 mmol/L) 5.2 H Chloride (98 - 107 mmol/L) 93 L Carbon Dioxide (22 - 30 mmol/L) 26 Anion Gap (5 - 16) 13 BUN (9 - 20 mg/dL) 19 Creatinine (0.7 - 1.2 mg/dL) 1.1 Estimated GFR (>60 ml/min) > 60 BUN/Creatinine Ratio (7 - 25 %) 17.3 Glucose (65 - 99 mg/dL) 349 H Serum Osmolality (285 - 295 MOSM/KG) 296 H Lactic Acid (0.7 - 2.1 mmol/L) 1.0 Calcium (8.4 - 10.2 mg/dL) 9.7 Total Bilirubin (0.2 - 1.3 mg/dL) 1.2 AST (17 - 59 U/L) 32 ALT (21 - 72 U/L) 62 Alkaline Phosphatase (< 127 U/L) 133 H C-Reactive Prot, Quant (<1.0 mg/dL) > 9.0 H Total Protein (6.3 - 8.2 g/dL) 7.9 Albumin (3.5 - 5.0 g/dL) 3.3 L Globulin (1.9 - 4.2 gm/dL) 4.6 H Albumin/Globulin Ratio (1.1 - 2.2 %) 0.7 L Hematology CBC w Diff MAN DIFF ORDERED WBC (4.8 - 10.8 /CUMM) 22.1 H RBC (4.70 - 6.10 /CUMM) 4.13 L Hgb (14.0 - 18.0 G/DL) 11.4 L Hct (42 - 52 %) 33.9 L MCV (80.0 - 94.0 FL) 82.2 MCH (27.0 - 31.0 PG) 27.5 RDW (11.5 - 14.5 %) 13.8 Plt Count (130 - 400 /CUMM) 511 H MPV (7.4 - 10.4 FL) 7.5 Gran % (42.2 - 75.2 %) 86.2 H Lymphocytes % (20.5 - 51.1 %) 8.4 L Monocytes % (1.7 - 9.3 %) 4.6 Eosinophils % (0 - 5 %) 0.7 Basophils % (0.0 - 2.0 %) 0.1 Absolute Granulocytes (1.4 - 6.5 /CUMM) 19.0 H Segmented Neutrophils (42.2 - 75.2 %) 77 H Band Neutrophils (0.0 - 5.0 %) 6 H Absolute Lymphocytes (1.2 - 3.4 /CUMM) 1.9 Lymphocytes (20.5 - 51.1 %) 8 L Monocytes (1.7 - 9.3 %) 8 Absolute Monocytes (0.10 - 0.60 /CUMM) 1.0 H Absolute Eosinophils (0.0 - 0.7 /CUMM) 0.1 Basophils (0.0 - 2.0 %) 1 Absolute Basophils (0.0 - 0.2 /CUMM) 0 Platelet Estimate (ADEQUATE) INCREASED Hypochromic-Microcytic 2+ Anisocytosis 1+ PUBS MCHC (33.0 - 37.0 G/DL) 33.5 ESR Westergren (0 - 10 MM) 127 H Last 24 Hours of Frank Results: Blood cultures 2 August 12 negative OR cultures August 12 labeled right foot bone and soft tissue positive for gram -negative rods, possible strep and possible anaerobes Diagnostic Data Recent Imaging Findings: X-ray of the right foot revealed erosions at the first MTP joint, subluxation of the second through fourth MTP joints and fracture versus erosion at the head of the second metatarsal; soft tissue gas spanning much of the width of the foot. Arterial Doppler of the right lower extremity was normal. Assessment/Plan Assessment/Plan Impression: This is a 62-year-old man with no past medical history admitted on August 12 with a one-month history of swelling over the dorsum of the right foot and a callous on the plantar aspect, with intermittent drainage, and a 4 to 5 day history of discoloration of the toes of the right foot, found to be afebrile with a leukocytosis and with an x-ray of the right foot revealing findings suggestive of osteomyelitis of the first through fourth MTP joints, now status post right foot TMA. His clinical picture is consistent with gangrene/ osteomyelitis of the right foot and suspect he will have residual osteomyelitis of the foot that will require a prolonged course of antibiotics. He is on Unasyn postoperatively, and this can be continued pending final OR cultures. His arterial Doppler revealed no abnormalities, but a vascular surgery evaluation may still be helpful. His elevated blood sugar on admission suggests new onset of diabetes, which likely explains his neuropathy and possible peripheral vascular disease. Suggestion: 1. Vascular surgery evaluation 2. Further management of the right foot, with further debridement likely, per Podiatry 3. Follow-up OR cultures 4. Continue Unasyn pending above Consult Acknowledgment - Thank you for your consult request.
--- NOTE | 2017-08-13 11:43 | Cons- Endocrinology ---
General Information and HPI Consulting Request Date of Consult: 08/13/17 Requested By: medical team Reason for Consult: uncontrolled diabetes Source of Information: patient, old records Exam Limitations: no limitations History of Present Illness: This 62-year-old male name to the emergency room because of swelling of the right foot and discoloration of his toes. He was found to have gangrene involving the right foot and went to the operating room yesterday. The patient had been treating this foot on his own for several weeks and apparently was draining The patient denies previous knowledge of diabetes but he has not seen a doctor for many years. In addition he was suspicious that he may have diabetes because he had numbness and tingling of his feet. However he shouldn't. When he entered the hospital his blood sugar was 349 and his hemoglobin A1c was 12.6%. 2-year-old male came to the emergency room foot swelling and infection. He was found to have Allergies/Medications Allergies: Coded Allergies: No Known Allergies (08/12/17) Home Med List: No Known Home Medications Review of Systems Review of Systems Constitutional: Denies: chills, fever. Cardiovascular: Denies: chest pain. Respiratory: Denies: cough, short of breath. GI: Denies: nausea, vomiting. 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 Home Services at Home: None Smoking Status: Never Smoked ETOH Use: denies use Illicit Drug Use: denies illicit drug use Exam & Diagnostic Data Last 24 Hrs of Vital Signs/I&O Vital Signs Date Time Temp Pulse Resp B/P B/P Pulse O2 O2 Flow FiO2 Mean Ox Delivery Rate 08/13 0638 98.3 76 20 96/60 94 Room Air 08/12 2222 98.1 75 18 110/70 97 08/12 2000 98.5 74 20 122/66 96 Room Air 08/12 1402 Room Air Room Air 08/12 1226 98.0 100 18 138/80 98 Room Air Intake & Output 08/13 1600 08/13 0800 08/13 0000 Intake Total 650 200 Output Total 400 950 450 Balance -400 -300 -250 Intake, IV 650 200 Output, Urine 400 950 450 Patient 204 lb Weight Weight Bed scale Measurement Method Vital Signs Date Time Temp Pulse Resp B/P B/P Pulse O2 O2 Flow FiO2 Mean Ox Delivery Rate 08/13 0638 98.3 76 20 96/60 94 Room Air 08/12 2222 98.1 75 18 110/70 97 08/12 2000 98.5 74 20 122/66 96 Room Air 08/12 1402 Room Air Room Air 08/12 1226 98.0 100 18 138/80 98 Room Air Intake & Output 08/13 1600 08/13 0800 08/13 0000 Intake Total 650 200 Output Total 400 950 450 Balance -400 -300 -250 Intake, IV 650 200 Output, Urine 400 950 450 Patient 204 lb Weight Weight Bed scale Measurement Method Physical Exam General Appearance: alert, awake, comfortable Head: normal appearance Eyes: Bilateral: normal appearance. Neck: normal inspection Respiratory: normal breath sounds Cardiovascular: regular rate/rhythm Gastrointestinal: normal bowel sounds, soft Extremities: right foot bandaged Labs/Frank Results: Laboratory Tests 08/13 08/12 0747 1435 Chemistry Sodium (137 - 145 mmol/L) 137 Potassium (3.5 - 5.1 mmol/L) 4.6 Chloride (98 - 107 mmol/L) 100 Carbon Dioxide (22 - 30 mmol/L) 27 Anion Gap (5 - 16) 10 BUN (9 - 20 mg/dL) 11 Creatinine (0.7 - 1.2 mg/dL) 0.7 Estimated GFR (>60 ml/min) > 60 BUN/Creatinine Ratio (7 - 25 %) 15.7 Hemoglobin A1c (4.2 - 5.8 %) 12.6 H Coagulation PT Cancelled INR Cancelled APTT Cancelled Hematology CBC w Diff NO MAN DIFF REQ WBC (4.8 - 10.8 /CUMM) 15.0 H RBC (4.70 - 6.10 /CUMM) 3.58 L Hgb (14.0 - 18.0 G/DL) 9.8 L Hct (42 - 52 %) 29.8 L MCV (80.0 - 94.0 FL) 83.0 MCH (27.0 - 31.0 PG) 27.4 RDW (11.5 - 14.5 %) 13.4 Plt Count (130 - 400 /CUMM) 424 H MPV (7.4 - 10.4 FL) 7.7 Gran % (42.2 - 75.2 %) 83.0 H Lymphocytes % (20.5 - 51.1 %) 9.9 L Monocytes % (1.7 - 9.3 %) 6.0 Eosinophils % (0 - 5 %) 0.8 Basophils % (0.0 - 2.0 %) 0.3 Absolute Granulocytes (1.4 - 6.5 /CUMM) 12.5 H Absolute Lymphocytes (1.2 - 3.4 /CUMM) 1.5 Absolute Monocytes (0.10 - 0.60 /CUMM) 0.9 H Absolute Eosinophils (0.0 - 0.7 /CUMM) 0.1 Absolute Basophils (0.0 - 0.2 /CUMM) 0 PUBS MCHC (33.0 - 37.0 G/DL) 33.0 08/12 1247 Chemistry Sodium (137 - 145 mmol/L) 132 L Potassium (3.5 - 5.1 mmol/L) 5.2 H Chloride (98 - 107 mmol/L) 93 L Carbon Dioxide (22 - 30 mmol/L) 26 Anion Gap (5 - 16) 13 BUN (9 - 20 mg/dL) 19 Creatinine (0.7 - 1.2 mg/dL) 1.1 Estimated GFR (>60 ml/min) > 60 BUN/Creatinine Ratio (7 - 25 %) 17.3 Glucose (65 - 99 mg/dL) 349 H Serum Osmolality (285 - 295 MOSM/KG) 296 H Lactic Acid (0.7 - 2.1 mmol/L) 1.0 Calcium (8.4 - 10.2 mg/dL) 9.7 Total Bilirubin (0.2 - 1.3 mg/dL) 1.2 AST (17 - 59 U/L) 32 ALT (21 - 72 U/L) 62 Alkaline Phosphatase (< 127 U/L) 133 H C-Reactive Prot, Quant (<1.0 mg/dL) > 9.0 H Total Protein (6.3 - 8.2 g/dL) 7.9 Albumin (3.5 - 5.0 g/dL) 3.3 L Globulin (1.9 - 4.2 gm/dL) 4.6 H Albumin/Globulin Ratio (1.1 - 2.2 %) 0.7 L Hematology CBC w Diff MAN DIFF ORDERED WBC (4.8 - 10.8 /CUMM) 22.1 H RBC (4.70 - 6.10 /CUMM) 4.13 L Hgb (14.0 - 18.0 G/DL) 11.4 L Hct (42 - 52 %) 33.9 L MCV (80.0 - 94.0 FL) 82.2 MCH (27.0 - 31.0 PG) 27.5 RDW (11.5 - 14.5 %) 13.8 Plt Count (130 - 400 /CUMM) 511 H MPV (7.4 - 10.4 FL) 7.5 Gran % (42.2 - 75.2 %) 86.2 H Lymphocytes % (20.5 - 51.1 %) 8.4 L Monocytes % (1.7 - 9.3 %) 4.6 Eosinophils % (0 - 5 %) 0.7 Basophils % (0.0 - 2.0 %) 0.1 Absolute Granulocytes (1.4 - 6.5 /CUMM) 19.0 H Segmented Neutrophils (42.2 - 75.2 %) 77 H Band Neutrophils (0.0 - 5.0 %) 6 H Absolute Lymphocytes (1.2 - 3.4 /CUMM) 1.9 Lymphocytes (20.5 - 51.1 %) 8 L Monocytes (1.7 - 9.3 %) 8 Absolute Monocytes (0.10 - 0.60 /CUMM) 1.0 H Absolute Eosinophils (0.0 - 0.7 /CUMM) 0.1 Basophils (0.0 - 2.0 %) 1 Absolute Basophils (0.0 - 0.2 /CUMM) 0 Platelet Estimate (ADEQUATE) INCREASED Hypochromic-Microcytic 2+ Anisocytosis 1+ PUBS MCHC (33.0 - 37.0 G/DL) 33.5 ESR Westergren (0 - 10 MM) 127 H Assessment/Plan Assessment/Plan This 62-year-old male presented with uncontrolled diabetes already complicated by neuropathy. He was found to have gangrene in the right foot and was taken to the operating room by Dr. Chavez. The patient has not seen a doctor for many years and was not aware that he had diabetes although he was suspicious that he might. His maternal grandfather had diabetes. He states neither of his parents were diabetic. The patient has been treated with regular insulin every 6 hours during the day yesterday. His sugar this morning 127 but it is now 223 before lunch. Suggest discontinue regular insulin every 6 hours as the patient is now eating. Begin Levemir 6 units at bedtime daily. In addition we should place the patient on sliding scale NovoLog before meals. Sliding scale NovoLog before meals should be 80-150 give 2 units NovoLog, 150-200 give 3 units NovoLog, 201- 250 give 4 units NovoLog, 251-300 give 4 units NovoLog, 301-350 give 5 units NovoLog, 351-400 give 6 units NovoLog. Separate bedtime sliding-scale NovoLog should be written. Sliding scale NovoLog at bedtime should be less than 250 give no insulin, 251-300 give 2 units NovoLog , 301-350 give 3 units NovoLog, 351-400 give 4 units NovoLog. Consult Acknowledgment - Thank you for your consult request.
--- NOTE | 2017-08-13 12:11 | PN- Att Addend ---
Attending Addendum Attending Brief Note Patient seen and examined, offers no complaints. Denies any pain. Right foot is wrapped in an Timothy wrap. Vital Signs Date Time Temp Pulse Resp B/P B/P Pulse O2 O2 Flow FiO2 Mean Ox Delivery Rate 08/13 0638 98.3 76 20 96/60 94 Room Air 08/12 2222 98.1 75 18 110/70 97 08/12 2000 98.5 74 20 122/66 96 Room Air 08/12 1402 Room Air Room Air 08/12 1226 98.0 100 18 138/80 98 Room Air on exam; aox3, nad. cv; s1,s2, rrr res; clear abd; soft, nt, bs+ ext; no edema. right fot wraped in timothy wrap. Laboratory Tests 08/13 08/12 0747 1435 Chemistry Sodium (137 - 145 mmol/L) 137 Potassium (3.5 - 5.1 mmol/L) 4.6 Chloride (98 - 107 mmol/L) 100 Carbon Dioxide (22 - 30 mmol/L) 27 Anion Gap (5 - 16) 10 BUN (9 - 20 mg/dL) 11 Creatinine (0.7 - 1.2 mg/dL) 0.7 Estimated GFR (>60 ml/min) > 60 BUN/Creatinine Ratio (7 - 25 %) 15.7 Hemoglobin A1c (4.2 - 5.8 %) 12.6 H Coagulation PT Cancelled INR Cancelled APTT Cancelled Hematology CBC w Diff NO MAN DIFF REQ WBC (4.8 - 10.8 /CUMM) 15.0 H RBC (4.70 - 6.10 /CUMM) 3.58 L Hgb (14.0 - 18.0 G/DL) 9.8 L Hct (42 - 52 %) 29.8 L MCV (80.0 - 94.0 FL) 83.0 MCH (27.0 - 31.0 PG) 27.4 RDW (11.5 - 14.5 %) 13.4 Plt Count (130 - 400 /CUMM) 424 H MPV (7.4 - 10.4 FL) 7.7 Gran % (42.2 - 75.2 %) 83.0 H Lymphocytes % (20.5 - 51.1 %) 9.9 L Monocytes % (1.7 - 9.3 %) 6.0 Eosinophils % (0 - 5 %) 0.8 Basophils % (0.0 - 2.0 %) 0.3 Absolute Granulocytes (1.4 - 6.5 /CUMM) 12.5 H Absolute Lymphocytes (1.2 - 3.4 /CUMM) 1.5 Absolute Monocytes (0.10 - 0.60 /CUMM) 0.9 H Absolute Eosinophils (0.0 - 0.7 /CUMM) 0.1 Absolute Basophils (0.0 - 0.2 /CUMM) 0 PUBS MCHC (33.0 - 37.0 G/DL) 33.0 08/12 1247 Chemistry Sodium (137 - 145 mmol/L) 132 L Potassium (3.5 - 5.1 mmol/L) 5.2 H Chloride (98 - 107 mmol/L) 93 L Carbon Dioxide (22 - 30 mmol/L) 26 Anion Gap (5 - 16) 13 BUN (9 - 20 mg/dL) 19 Creatinine (0.7 - 1.2 mg/dL) 1.1 Estimated GFR (>60 ml/min) > 60 BUN/Creatinine Ratio (7 - 25 %) 17.3 Glucose (65 - 99 mg/dL) 349 H Serum Osmolality (285 - 295 MOSM/KG) 296 H Lactic Acid (0.7 - 2.1 mmol/L) 1.0 Calcium (8.4 - 10.2 mg/dL) 9.7 Total Bilirubin (0.2 - 1.3 mg/dL) 1.2 AST (17 - 59 U/L) 32 ALT (21 - 72 U/L) 62 Alkaline Phosphatase (< 127 U/L) 133 H C-Reactive Prot, Quant (<1.0 mg/dL) > 9.0 H Total Protein (6.3 - 8.2 g/dL) 7.9 Albumin (3.5 - 5.0 g/dL) 3.3 L Globulin (1.9 - 4.2 gm/dL) 4.6 H Albumin/Globulin Ratio (1.1 - 2.2 %) 0.7 L Hematology CBC w Diff MAN DIFF ORDERED WBC (4.8 - 10.8 /CUMM) 22.1 H RBC (4.70 - 6.10 /CUMM) 4.13 L Hgb (14.0 - 18.0 G/DL) 11.4 L Hct (42 - 52 %) 33.9 L MCV (80.0 - 94.0 FL) 82.2 MCH (27.0 - 31.0 PG) 27.5 RDW (11.5 - 14.5 %) 13.8 Plt Count (130 - 400 /CUMM) 511 H MPV (7.4 - 10.4 FL) 7.5 Gran % (42.2 - 75.2 %) 86.2 H Lymphocytes % (20.5 - 51.1 %) 8.4 L Monocytes % (1.7 - 9.3 %) 4.6 Eosinophils % (0 - 5 %) 0.7 Basophils % (0.0 - 2.0 %) 0.1 Absolute Granulocytes (1.4 - 6.5 /CUMM) 19.0 H Segmented Neutrophils (42.2 - 75.2 %) 77 H Band Neutrophils (0.0 - 5.0 %) 6 H Absolute Lymphocytes (1.2 - 3.4 /CUMM) 1.9 Lymphocytes (20.5 - 51.1 %) 8 L Monocytes (1.7 - 9.3 %) 8 Absolute Monocytes (0.10 - 0.60 /CUMM) 1.0 H Absolute Eosinophils (0.0 - 0.7 /CUMM) 0.1 Basophils (0.0 - 2.0 %) 1 Absolute Basophils (0.0 - 0.2 /CUMM) 0 Platelet Estimate (ADEQUATE) INCREASED Hypochromic-Microcytic 2+ Anisocytosis 1+ PUBS MCHC (33.0 - 37.0 G/DL) 33.5 ESR Westergren (0 - 10 MM) 127 H A/P; 62-year-old male with no known significant history, has not followed up with a doctor in many years admitted with right foot cellulitis and a new onset diabetes. Patient also had gas gangrene on the right foot. Status post debridement with Dr. Chavez. Continue current antibiotics as per ID recommendations. Appreciate input from all the consultants. Please follow recommendations for insulin from endocrinology. Leukctosis improved. DVT px; Hep sq.
[2017-08-13 13:53] VITALS: BP 118/90
--- NOTE | 2017-08-13 14:11 | PN- Student ---
Subjective Subjective: FULL STUDENT NOTE CC: "Toes have changed color" HPI: 62 yo M HD 3 and POD2 for metatarsal amputation secondary to osteomyelitis and gas gangrene of the R foot. Presented to the ED stating right foot has had an open wound for the past 3 weeks and that over the weekend there was a "color change" in his toes. He tried to manage the wound with creams but they did not help with the symptoms. He states there has been some drainage from the wound as well as an unpleasant odor. Denied any radiating pain. Does not have a regular PCP. Denied any PMHx but glucose was 349 in the ER, so DM2 was diagnosd. Denies any other symptoms. Surgery was completed with no complications. PMH: Denies any PMHx PSHx: Non-contributory Meds: Takes no medication Allergies: No known allergies FHx: Non-contributory SHx: Denies Hx of smoking, ETOH, and recreational drug use. 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 ROS: Constitutional: * Reports: unexplained weight loss. Denies: chills, diaphoresis, fever. Cardiovascular: * Reports: no symptoms. Respiratory: * Reports: no symptoms. GI: * Reports: no symptoms. Genitourinary: * Reports: frequency. Musculoskeletal: * Reports: see HPI. Skin: * Reports: see HPI, change in skin color, erythema. Objective Objective: Vital Signs Date Time Temp Pulse Resp B/P B/P Pulse O2 O2 Flow FiO2 Mean Ox Delivery Rate 08/14 0616 97.6 75 20 110/72 95 Room Air 08/13 2218 98.5 88 18 114/60 95 Room Air 08/13 1353 99.3 80 18 118/90 95 Room Air Intake & Output 08/14 1600 08/14 0800 08/14 0000 Intake Total 1010 Output Total 200 400 400 Balance -200 610 -400 Intake, IV 650 Intake, Oral 360 Output, Urine 200 400 400 Physical Exam General Appearance: Alert and oriented X3, Cooperative, NAD. Respondingly approrpiately to questions, appropriate affect HEENT: Atraumatic normocephalic. Neck has full ROM. Oropharynx appropriately moist. PERRL Skin: R foot displays necrotic tissue on the ball of his foot with bone exposed. Gangerene of his 2nd-5th right toes. RLE erythema and warmth to the touch, LLE venous stasis changes, hemosiderin deposits noticed. Cardiovascular: RRR, no murmurs, rubs or gallops. S1 and S2 present. Lungs: Clear to Auscultation, no presence of adventitious sounds Abdomen: Normoactive bowel sounds, Soft, No tenderness to palpation or rigidity Extremities: 2+ distal pulses in bilateral radial arteries, 2+ in dorsalis pedis of left foot and 1 + in posterior tibilalis of R foot Neuro: Sensation present in lower and upper extremities. Speech is clear and concise. Current Medications Sig/Rosanne Start time Last Medication Dose Route Stop Time Status Admin Acetaminophen 650 MG Q6P PRN 08/12 1615 AC PO Acetaminophen 1,000 MG Q6P PRN 08/12 1615 AC IV Ampicillin Sodium/ 3,000 MG Q6 08/12 2359 AC 08/14 Sulbactam Sodium IV 0535 Sodium Chloride 100 ML Heparin Sodium 5,000 UNIT Q8 08/12 2200 DC 08/14 (Porcine) SC 0536 Insulin Aspart 0 AT BEDTIME 08/13 2200 AC 08/13 NC 2212 Insulin Aspart 0 TIDAC 08/13 1700 AC 08/14 SC 0745 Insulin Detemir 6 UNITS QPM 08/13 2200 AC 08/13 SC 2212 Insulin Human Regular 6 UNITS .STK-MED ONE 08/13 1257 DC IV 08/13 1258 Insulin Human Regular 0 Q6 08/12 1800 DC 08/13 SC 1300 Morphine Sulfate 2 MG Q6-PRN PRN 08/12 1615 IV Sodium Chloride 1,000 ML Q13H 08/12 1445 AC 08/13 IV 2211 Results Results: Laboratory Tests 08/14/17 0811: Sodium Pending, Potassium Pending, Chloride Pending, Carbon Dioxide Pending, Anion Gap Pending, BUN Pending, Creatinine Pending, BUN/Creatinine Ratio Pending , CBC w Diff Pending, WBC Pending, RBC Pending, Hgb Pending, Hct Pending, MCV Pending, MCH Pending, RDW Pending, Plt Count Pending, MPV Pending, PUBS MCHC Pending 08/13/17 0747: Anion Gap 10, Estimated GFR > 60, BUN/Creatinine Ratio 15.7, Hemoglobin A1c 12.6 H, CBC w Diff NO MAN DIFF REQ, RBC 3.58 L, MCV 83.0, MCH 27.4, RDW 13.4, MPV 7.7, Gran % 83.0 H, Lymphocytes % 9.9 L, Monocytes % 6.0, Eosinophils % 0.8, Basophils % 0.3, Absolute Granulocytes 12.5 H, Absolute Lymphocytes 1.5, Absolute Monocytes 0.9 H, Absolute Eosinophils 0.1, Absolute Basophils 0, PUBS MCHC 33.0 08/12/17 1435: PT Cancelled, INR Cancelled, APTT Cancelled 08/12/17 1247: Anion Gap 13, Estimated GFR > 60, BUN/Creatinine Ratio 17.3, Glucose 349 H, Serum Osmolality 296 H, Lactic Acid 1.0, Calcium 9.7, Total Bilirubin 1.2, AST 32, ALT 62, Alkaline Phosphatase 133 H, C-Reactive Prot, Quant > 9.0 H, Total Protein 7.9, Albumin 3.3 L, Globulin 4.6 H, Albumin/Globulin Ratio 0.7 L, CBC w Diff MAN DIFF ORDERED, RBC 4.13 L, MCV 82.2, MCH 27.5, RDW 13.8, MPV 7.5, Gran % 86.2 H, Lymphocytes % 8.4 L, Monocytes % 4.6, Eosinophils % 0.7, Basophils % 0.1, Absolute Granulocytes 19.0 H, Segmented Neutrophils 77 H, Band Neutrophils 6 H, Absolute Lymphocytes 1.9, Lymphocytes 8 L, Monocytes 8, Absolute Monocytes 1.0 H, Absolute Eosinophils 0.1, Basophils 1, Absolute Basophils 0, Platelet Estimate INCREASED, Hypochromic-Microcytic 2+, Anisocytosis 1+, PUBS MCHC 33.5, ESR Westergren 127 H Microbiology 08/12 1729 EXTREMITIE: Gross Specimen Examination - RES GRAM NEGATIVE RODS BETA STREP GROUP G 08/12 1729 EXTREMITIE: Gram Stain - RES 08/12 173 EXTREMITIE: Gross Specimen Examination - RES 08/12 1729 EXTREMITIE: Gram Stain - RES 08/12 1257 BLOOD: Blood Culture - RES 08/12 1247 BLOOD: Blood Culture - RES Imaging * X-ray shows abnormalities in the regions of the first through fourth MTP joints. These include erosions at the first MTP joint, subluxation of the second through fourth MTP joints, and fracture versus erosion at the head of the second metatarsal. * Duplex scan shows normal peripheral arterial testing with normal ankle- brachial indices and velocity measurements. * U/S Duplex venous scan shows no evidence of DVT in R lower extremity. Assessment/Plan Assessment: 62 yo M HD 3 and POD 2 from metatarsal amputation secondary to osteomyelitis/gas gangrene Plan: 1. Osteomyelitis/Gas gangrene * NPO to return to the OR for further debridement and closure or placement of a wound vac * Abx: Unasyn 3g IV q6hr * Consult with infectious disease for approrpriate abx duration 2. DVT Prophylaxis * Heparin 5000 units sc q8hrs * Compression stockings on left leg 3. Newly diagnosed DM2 * Insulin Aspart * Insulin detemir * Insulin human regular * DM2/Medication education 4. Pain management: * Morphine 2 mg q6hr PRN * Acetominophen PRN 5. Discuss with case management for discharge planning
--- NOTE | 2017-08-13 16:55 | Cons- Vascular Surgery ---
General Information and HPI Consulting Request Date of Consult: 08/13/17 Requested By: Sharath Ibrahim MD Reason for Consult: RIGHT FOOT OSTEO Source of Information: patient Exam Limitations: no limitations (SURGICAL DRESSING OVER R FOOT) History of Present Illness: 62yo M presents with a 1 month history of right foot swelling with an open wound at the base of his great toe. Pt states that he felt more pressure rather than pain as he doesnt have much feeling in his feet. WBC on admission was 22,000. Glucose on admission was 349 with a hemaglobin A1c of 12.6, pt does not have a PCP and has never been diagnosed with diabetes before. Upon admission he underwent a Right transmetatarsal amputation with podiatry and was started on IV Unasyn. Wound cultures are pending. He had a Arterial doppler of the right lower extremity that was normal. 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 Home Services at Home: None Smoking Status: Never Smoked ETOH Use: denies use Illicit Drug Use: denies illicit drug use Review of Systems Review of Systems: As per HPI Exam & Diagnostic Data Vital Signs and I&O Vital Signs Date Time Temp Pulse Resp B/P B/P Pulse O2 O2 Flow FiO2 Mean Ox Delivery Rate 08/13 1353 99.3 80 18 118/90 95 Room Air 08/13 0638 98.3 76 20 96/60 94 Room Air 08/12 2222 98.1 75 18 110/70 97 08/12 2000 98.5 74 20 122/66 96 Room Air Intake & Output 08/13 1600 08/13 0800 08/13 0000 08/12 1600 08/12 0808/12 0000 Intake Total 1325 650 200 Output Total 900 950 450 Balance 425 -300 -250 Intake, IV 525 650 200 Intake, Oral 800 Output, Urine 900 950 450 Patient 204 lb 240 lb Weight Weight Bed scale Reported by Patient Measurement Method Physical Exam: general: NAD, AAx3 HEENT: EOMI, nares patent, MMM resp: CTAB cardio:RRR abd: ND, soft, NT ext: pitting edema on RLE. venous stasis changes over both lower legs. Wound over the anterior aspect of the right ship covered with clean, dry dressing. Right foot SP transmet amputation, covered in clean dry dressing. 2+ PT/ popliteal, and femoral pulses bilaterally. 2+DP pulse on left foot. Neuropathy of both feet. Last 24 Hours of Labs: Laboratory Tests 08/13 0747 Chemistry Sodium (137 - 145 mmol/L) 137 Potassium (3.5 - 5.1 mmol/L) 4.6 Chloride (98 - 107 mmol/L) 100 Carbon Dioxide (22 - 30 mmol/L) 27 Anion Gap (5 - 16) 10 BUN (9 - 20 mg/dL) 11 Creatinine (0.7 - 1.2 mg/dL) 0.7 Estimated GFR (>60 ml/min) > 60 BUN/Creatinine Ratio (7 - 25 %) 15.7 Hemoglobin A1c (4.2 - 5.8 %) 12.6 H Hematology CBC w Diff NO MAN DIFF REQ WBC (4.8 - 10.8 /CUMM) 15.0 H RBC (4.70 - 6.10 /CUMM) 3.58 L Hgb (14.0 - 18.0 G/DL) 9.8 L Hct (42 - 52 %) 29.8 L MCV (80.0 - 94.0 FL) 83.0 MCH (27.0 - 31.0 PG) 27.4 RDW (11.5 - 14.5 %) 13.4 Plt Count (130 - 400 /CUMM) 424 H MPV (7.4 - 10.4 FL) 7.7 Gran % (42.2 - 75.2 %) 83.0 H Lymphocytes % (20.5 - 51.1 %) 9.9 L Monocytes % (1.7 - 9.3 %) 6.0 Eosinophils % (0 - 5 %) 0.8 Basophils % (0.0 - 2.0 %) 0.3 Absolute Granulocytes (1.4 - 6.5 /CUMM) 12.5 H Absolute Lymphocytes (1.2 - 3.4 /CUMM) 1.5 Absolute Monocytes (0.10 - 0.60 /CUMM) 0.9 H Absolute Eosinophils (0.0 - 0.7 /CUMM) 0.1 Absolute Basophils (0.0 - 0.2 /CUMM) 0 PUBS MCHC (33.0 - 37.0 G/DL) 33.0 Imaging Results: EXAM TYPE: US - US-DUPLEX SCAN LOWER EXT ARTER EXAMINATION: COLOR-FLOW DUPLEX IMAGING OF THE RIGHT LOWER EXTREMITY ARTERIAL SYSTEM. VELOCITY MEASUREMENTS THROUGHOUT THE FEMORAL ARTERIES WITH PERIPHERAL ARTERIAL TESTING. CLINICAL INFORMATION: There is a 62-year-old male with a history of peripheral arterial disease. Discolored right foot. Numbness. Unable to palpate pulses. RIGHT FEMORAL RUNOFF VELOCITIES: The right common femoral artery measures 134 cm/s The right profunda femoral artery is 94 cm/s Right proximal superficial femoral artery measures 131 cm/s Mid superficial femoral artery is 150 cm/s Distal right superficial femoral artery measures 125 cm/s Right popliteal velocity measures 118 cm/s The posterior tibial artery velocity measures 123 cm/s The anterior tibial artery velocity measures 113 cm/s The dorsalis pedis artery velocity measures 109 cm/s. IMPRESSION: 1. Normal peripheral arterial testing with normal ankle-brachial indices and velocity measurements. EXAM TYPE: RAD - XRY-FOOT COMPLETE, R EXAMINATION: XR FOOT, RIGHT CLINICAL INFORMATION: Right foot ulcers COMPARISON: None TECHNIQUE: AP, lateral, and oblique views of the right foot. FINDINGS: There are erosions on both sides of the first MTP joint, with mild hallux valgus deformity. There is periosteal reaction along the diaphysis of the first metatarsal. There is soft tissue gas spanning much of the width of the foot, seen along the plantar surface and the lateral view, at the level of the MTP joints which limits evaluation of the osseous structures. The head of the second metatarsal is not clearly delineated and may be eroded or fractured. The base of the second proximal phalanx is shifted laterally and may be affected by erosions. There is dislocation at the second PIP joint, with medial displacement of the middle phalanx and lateral angulation. There may be dorsal subluxation of the third proximal phalanx at the MTP joint. There is suggestion of fracture at the base of the fourth proximal phalanx, with the distal portion displaced medially. There is diffuse soft tissue swelling of the foot. There are degenerative changes in the tarsotarsal articulations. Mild posterior and plantar calcaneal spurring is noted. IMPRESSION: Abnormalities in the regions of the first through fourth MTP joints as detailed above. These include erosions at the first MTP joint, subluxation of the second through fourth MTP joints, and fracture versus erosion at the head of the second metatarsal. Additional erosions may be present, with detail of osseous evaluation limited due to superimposed soft tissue gas. Though these findings are age-indeterminate, the presence of soft tissue gas and swelling with adjacent osseous irregularities is suspicious for osteomyelitis in the proper clinical setting. Assessment/Plan Assessment/Plan 62yo M with osteomyelitis of right foot SP R transmetatarsal amputation POD1. Currently on Unasyn, awaiting wound cultures, ID managing ABX. Medicine manging newly diagnosed diabetes. Arterial study was normal and pt has great distal pulses. Recommend RLE venous Ultrasound Compression and elevation of RLE Findings were discussed with Dr. Reina and he agrees with the above plan Consult Acknowledgment - Thank you for your consult request.
[2017-08-13 22:18] VITALS: BP 114/60
--- NOTE | 2017-08-13 23:09 | ULTRASOUND REPORT ---
EXAMINATION: US TRIPLEX LOWER EXTREMITY, RIGHT CLINICAL INFORMATION: Postoperative right lower extremity. COMPARISON: None TECHNIQUE: Color-flow triplex imaging with spectral analysis and compression Doppler were performed on the right lower extremity. FINDINGS: Respiratory variation, normal compression and augmented flow are noted throughout the right lower extremity. The visualized common femoral vein, superficial femoral vein, profunda femoral vein, popliteal vein and midcalf peroneal and posterior tibial venous segments show no evidence of deep venous thrombosis. There is slow flow noted. There is no Acosta's cyst. IMPRESSION: No evidence of deep venous thrombosis involving the right lower extremity.
[2017-08-14 06:16] VITALS: BP 110/72
--- NOTE | 2017-08-14 07:42 | PN- Diabetes ---
Assessment/Plan Assessment: This 62-year-old male presented to the emergency room with gangrene and gas formation in his right foot. He was taken to the operating room by Dr. Chavez. He denies any previous history of diabetes but his blood sugars were found to be high. In addition his hemoglobin A1c was 12.6 prior to admission consistent with uncontrolled diabetes. Yesterday the patient was placed on NovoLog before meals and a single dose of Levemir at night which was 6 units. His sugars yesterday became high later in the day with a reading of 386 by fingerstick before dinner and 228 at bedtime. The patient is presently n.p.o. and is supposed to go back to the operating room today for furtHER surgery on the right foot. Plan: Suggest that while the patient is n.p.o. we should run D5 half-normal saline at 75 cc/h. In addition we should place him on NovoLog coverage every 4 hours. NovoLog coverage every 4 hours should be less than 150 give no coverage, 151-200 give 3 units NovoLog, 201-250 give 4 units NovoLog, 251-300 give 5 units NovoLog , 301-350 give 6 units NovoLog, 351-400 give 7 units NovoLog. When the patient is eating again we should place him on 8 units of Levemir twice a day and change his sliding scale to before meals. Sliding scale NovoLog before meals should be 80-150 give 3 units NovoLog, 151 200 give 4 units NovoLog , 201-250 give 5 units NovoLog, 251-300 give 6 units NovoLog, 301-350 give 7 units NovoLog, 351-400 give 8 units NovoLog. Separate bedtime sliding scale NovoLog should be written. Bedtime sliding scale NovoLog at bedtime should be less than 250 give no insulin, 251-300 give 2 units NovoLog, 301-350 give 3 units NovoLog, 351-400 give 4 units NovoLog. Subjective Subjective: Feels okay Review of Systems Constitutional: Denies: chills, fever. Cardiovascular: Denies: chest pain. Respiratory: Denies: short of breath. Gastrointestinal: Denies: nausea, vomiting. Objective Last 24 Hrs of Vital Signs/I&O Laboratory Tests 08/13 0747 Chemistry Sodium (137 - 145 mmol/L) 137 Potassium (3.5 - 5.1 mmol/L) 4.6 Chloride (98 - 107 mmol/L) 100 Carbon Dioxide (22 - 30 mmol/L) 27 Anion Gap (5 - 16) 10 BUN (9 - 20 mg/dL) 11 Creatinine (0.7 - 1.2 mg/dL) 0.7 Estimated GFR (>60 ml/min) > 60 BUN/Creatinine Ratio (7 - 25 %) 15.7 Hemoglobin A1c (4.2 - 5.8 %) 12.6 H Hematology CBC w Diff NO MAN DIFF REQ WBC (4.8 - 10.8 /CUMM) 15.0 H RBC (4.70 - 6.10 /CUMM) 3.58 L Hgb (14.0 - 18.0 G/DL) 9.8 L Hct (42 - 52 %) 29.8 L MCV (80.0 - 94.0 FL) 83.0 MCH (27.0 - 31.0 PG) 27.4 RDW (11.5 - 14.5 %) 13.4 Plt Count (130 - 400 /CUMM) 424 H MPV (7.4 - 10.4 FL) 7.7 Gran % (42.2 - 75.2 %) 83.0 H Lymphocytes % (20.5 - 51.1 %) 9.9 L Monocytes % (1.7 - 9.3 %) 6.0 Eosinophils % (0 - 5 %) 0.8 Basophils % (0.0 - 2.0 %) 0.3 Absolute Granulocytes (1.4 - 6.5 /CUMM) 12.5 H Absolute Lymphocytes (1.2 - 3.4 /CUMM) 1.5 Absolute Monocytes (0.10 - 0.60 /CUMM) 0.9 H Absolute Eosinophils (0.0 - 0.7 /CUMM) 0.1 Absolute Basophils (0.0 - 0.2 /CUMM) 0 PUBS MCHC (33.0 - 37.0 G/DL) 33.0 Vital Signs Date Time Temp Pulse Resp B/P B/P Pulse O2 O2 Flow FiO2 Mean Ox Delivery Rate 08/14 0616 97.6 75 20 110/72 95 Room Air 08/13 2218 98.5 88 18 114/60 95 Room Air 08/13 1353 99.3 80 18 118/90 95 Room Air Intake & Output 08/14 0800 08/14 0000 08/13 1600 Intake Total 1010 1325 Output Total 400 400 900 Balance 610 -400 425 Intake, IV 650 525 Intake, Oral 360 800 Output, Urine 400 400 900 Physical Exam General Appearance: well developed/nourished, alert, awake, comfortable Head: normal appearance Cardiovascular: regular rate/rhythm Abdomen: normal bowel sounds Extremities: right foot bandaged Current Medications: Current Medications Sig/Rosanne Start time Last Medication Dose Route Stop Time Status Admin Acetaminophen 650 MG Q6P PRN 08/12 1615 AC PO Acetaminophen 1,000 MG Q6P PRN 08/12 1615 IV Ampicillin Sodium/ 3,000 MG Q6 08/12 2359 08/14 Sulbactam Sodium IV 0535 Sodium Chloride 100 ML Heparin Sodium 5,000 UNIT Q8 08/12 2200 [place] 08/14 (Porcine) SC 0536 Insulin Aspart 0 AT BEDTIME 08/13 2200 08/13 NM 2212 Insulin Aspart 0 TIDAC 08/13 1700 08/14 NM 0745 Insulin Detemir 6 UNITS QPM 08/13 2200 08/13 NM 2212 Insulin Human Regular 6 UNITS .STK-MED ONE 08/13 1257 DC IV 08/13 1258 Insulin Human Regular 0 Q6 08/12 1800 DC 08/13 SC 1300 Morphine Sulfate 2 MG Q6-PRN PRN 08/12 1615 IV Sodium Chloride 1,000 ML Q13H 08/12 1445 08/13 IV 2211
--- NOTE | 2017-08-14 08:50 | PN- Housestaff ---
Paulo CORRALES,[facility] 08/14/17 0849: Subjective Follow-up For: gangrene osteomyelitis Subjective: No acute events overnight. No pain but states some discomfort from dressing too tight. Review of Systems Constitutional: Reports: no symptoms. Cardiovascular: Reports: no symptoms. Respiratory: Reports: no symptoms. Gastrointestinal: Reports: no symptoms. Genitourinary: Reports: no symptoms. Musculoskeletal: Reports: see HPI. Objective Last 24 Hrs of Vital Signs/I&O Vital Signs Date Time Temp Pulse Resp B/P B/P Pulse O2 O2 Flow FiO2 Mean Ox Delivery Rate 08/14 2215 99.1 89 20 120/80 92 Room Air 08/14 1530 98.1 75 20 110/62 97 Room Air 08/14 0616 97.6 75 20 110/72 95 Room Air Intake & Output 08/15 0800 08/15 0000 08/14 1600 Intake Total 200 700 Output Total 480 1500 Balance -280 -800 Intake, IV 700 Intake, Oral 200 Number 1 Bowel Movements Output, 20 Drainage Output, Urine 460 1500 Physical Exam General Appearance: Alert, Oriented X3, Cooperative, No Acute Distress Skin: R foot covered in wraps Cardiovascular: Regular Rate, Normal S1, Normal S2 Lungs: Clear to Auscultation, Normal Air Movement Abdomen: Normal Bowel Sounds, Soft, No Tenderness, No Hepatospenomegaly Extremities: 2+ radial pulses Current Medications: Current Medications Sig/Rosanne Start time Last Medication Dose Route Stop Time Status Admin Acetaminophen 650 MG Q6P PRN 08/12 1615 AC PO Acetaminophen 1,000 MG Q6P PRN 08/12 1615 IV Ampicillin Sodium/ 3,000 MG Q6 08/12 2359 08/14 Sulbactam Sodium IV 2336 Sodium Chloride 100 ML Heparin Sodium 5,000 UNIT Q8 08/12 2200 DC 08/14 (Porcine) ME 0536 Insulin Aspart 0 AT BEDTIME 08/13 2200 08/14 ME 2214 Insulin Aspart 0 TIDAC 08/13 1700 08/14 ME 1733 Insulin Detemir 8 UNITS BID 08/14 2200 08/14 ME 2213 Insulin Detemir 6 UNITS QPM 08/13 2200 VA 08/13 ME 2212 Morphine Sulfate 2 MG Q6-PRN PRN 08/12 1615 IV Sodium Chloride 1,000 ML Q13H 08/12 1445 VA 08/13 IV 2211 Last 24 Hrs of Lab/Frank Results Last 24 Hrs of Labs/Mics: Laboratory Tests 08/14/17 0811: Anion Gap 10, Estimated GFR > 60, BUN/Creatinine Ratio 15.7, CBC w Diff NO MAN DIFF REQ, RBC 3.53 L, MCV 83.4, MCH 27.5, RDW 13.3, MPV 7.6, Gran % 73.1, Lymphocytes % 17.4 L, Monocytes % 6.4, Eosinophils % 2.8, Basophils % 0.3, Absolute Granulocytes 7.8 H, Absolute Lymphocytes 1.9, Absolute Monocytes 0.7 H, Absolute Eosinophils 0.3, Absolute Basophils 0, PUBS MCHC 33.0 Assessment/Plan Assessment: 62 yo M with no significant pmhx presents gangrenous right foot s/p open MTA most likely due to diabetes #gangernous R foot Currently s/p open MTA wbc 22.1 -> 15.1 -> 10.7, CRP >9.0 LE arterial doppler normal Foot xray:erosions at the first MTP joint, subluxation of the second through fourth MTP joints, and fracture versus erosion at the head of the second metatarsal. presence of soft tissue gas and swelling with adjacent osseous irregularities Aterial duplex of LE = negative cx: gram - rods, staph aureus, enteroccoccus, group b strep, proteus mirabilis -needs PICC line placed for discharge -patient going for closure surgery today -continue unasyn per ID -leg elevation with compression stockings on discharge. f/u with vascular surgery -f/u blood and biopsy cultures #diabetes Blood sugars elevated 300+ upon admission Pt also reports neuropathy, dysuria, and weightloss Bun 19, Cr 1.1 HgbA1c 12.6 -f/u endo recommendations for BS control #electrolyte abnormalities - resolved na 132 -> 136 -> 138 K 5.2 -> 4.6 -> 4.4 -continue to monitor and correct as needed #dvt prophylaxis -sub q heparin #FULL CODE Problem List: 1. Diabetes 2. Osteomyelitis Pain Ratin Pain Location: 0 Pain Goal: Pain 4 or less Pain Plan: none Tomorrow's Labs & Rationales: cbc bep Luz Marina Garrison MD 08/14/17 1114: Attending MD Review Statement Attending Statement Attending MD Statement: examined this patient, discuss w/resident/PA/DATABASE PROGRAMMER, agreed w/resident/PA/DATABASE PROGRAMMER, reviewed EMR data (avail), discussed with nursing, discussed with case mgmt, reviewed images, amended to note Attending Assessment/Plan: Patient seen and examined, denies any complaints. Denies any pain in his right foot. Status post debridement with Dr. Chavez two days ago and will be taken to operating room again today. Vital Signs Date Time Temp Pulse Resp B/P B/P Pulse O2 O2 Flow FiO2 Mean Ox Delivery Rate 08/14 0616 97.6 75 20 110/72 95 Room Air 08/13 2218 98.5 88 18 114/60 95 Room Air 08/13 1353 99.3 80 18 118/90 95 Room Air on exam; aox3, nad cv; s1, s2, rrr resp; clear abd; soft, nt, bs+ ext; no edema skin: + frandy warp on right foot. Laboratory Tests 08/14 0811 Chemistry Sodium (137 - 145 mmol/L) 138 Potassium (3.5 - 5.1 mmol/L) 4.4 Chloride (98 - 107 mmol/L) 101 Carbon Dioxide (22 - 30 mmol/L) 27 Anion Gap (5 - 16) 10 BUN (9 - 20 mg/dL) 11 Creatinine (0.7 - 1.2 mg/dL) 0.7 Estimated GFR (>60 ml/min) > 60 BUN/Creatinine Ratio (7 - 25 %) 15.7 Hematology CBC w Diff NO MAN DIFF REQ WBC (4.8 - 10.8 /CUMM) 10.7 RBC (4.70 - 6.10 /CUMM) 3.53 L Hgb (14.0 - 18.0 G/DL) 9.7 L Hct (42 - 52 %) 29.5 L MCV (80.0 - 94.0 FL) 83.4 MCH (27.0 - 31.0 PG) 27.5 RDW (11.5 - 14.5 %) 13.3 Plt Count (130 - 400 /CUMM) 372 MPV (7.4 - 10.4 FL) 7.6 Gran % (42.2 - 75.2 %) 73.1 Lymphocytes % (20.5 - 51.1 %) 17.4 L Monocytes % (1.7 - 9.3 %) 6.4 Eosinophils % (0 - 5 %) 2.8 Basophils % (0.0 - 2.0 %) 0.3 Absolute Granulocytes (1.4 - 6.5 /CUMM) 7.8 H Absolute Lymphocytes (1.2 - 3.4 /CUMM) 1.9 Absolute Monocytes (0.10 - 0.60 /CUMM) 0.7 H Absolute Eosinophils (0.0 - 0.7 /CUMM) 0.3 Absolute Basophils (0.0 - 0.2 /CUMM) 0 PUBS MCHC (33.0 - 37.0 G/DL) 33.0 A/P; 62-year-old male with no known significant history, has not followed up with a doctor in many years admitted with right foot cellulitis and a new onset diabetes. Patient also had gas gangrene and osteomyelitis of the right foot. S/ P Debridement with Dr. Chavez two days ago and will be taken to operating room again today. Continue IV Unasyn per ID recommendations. Follow-up on cultures. Please confirm with ID about antibiotics and a PICC line. Insulin management per endocrinology. Blood sugars are stable. Continue the rest of the medications. DVT prophylaxis: Heparin subcutaneous.
[2017-08-14 09:31] LABS: ABSOLUTE BASOPHIL COUNT 0 /CUMM (0.0-0.2); ABSOLUTE EOSINOPHIL COUNT 0.3 /CUMM (0.0-0.7); ABSOLUTE GRANULOCYTE CT 7.8 /CUMM (1.4-6.5); ABSOLUTE LYMPH COUNT 1.9 /CUMM (1.2-3.4); ABSOLUTE MONOCYTE COUNT 0.7 /CUMM (0.10-0.60); BASOPHIL % 0.3 % (0.0-2.0); EOSINOPHIL % 2.8 % (0-5); GRANULOCYTE % 73.1 % (42.2-75.2); HEMATOCRIT 29.5 % (42-52); MEAN CORPUSCULAR HGB 27.5 PG (27.0-31.0); MEAN CORPUSCULAR VOLUME 83.4 FL (80.0-94.0); MEAN PLATELET VOLUME 7.6 FL (7.4-10.4); PLATELET COUNT 372 /CUMM (130-400); RBC DISTRIBUTION WIDTH 13.3 % (11.5-14.5); RED BLOOD CELL CT 3.53 /CUMM (4.70-6.10); WHITE BLOOD CELL COUNT 10.7 /CUMM (4.8-10.8)
--- NOTE | 2017-08-14 13:51 | Operative Report ---
Operative/Inv Procedure Report Surgery Date: 08/14/17 Name of Procedure: 1 open incision and drainage deep to the D fashion with exposure of the extensor and flexor tendon and tendon sheath multiple sites right foot 2 revisional open TMA right foot 3 intraoperative administration of ankle block anesthesia 4 intraoperative application of negative pressure wound therapy 5 excisional debridement Pre-Operative Diagnosis: 1 open necrotic wound right foot 2 osteomyelitis right foot 3 diabetic peripheral neuropathy Post-Operative Diagnosis: The same Estimated Blood Loss: less than 50ml Surgeon/Partition Setter: MAYO DOE DPM Anesthesia: moderate sedation, block Operative/Procedure Note Note: After obtaining informed consent the patient was brought to the operating room and placed on the operating table in supine position. The patient isn't securely fastened to the operating table utilizing safety belt. After administration of IV sedation, 10 mL of 0.5% Marcaine plain was obtained about the patient's right ankle. The right foot and ankle then scrubbed prepped and draped in usual aseptic manner. Digitorectal distal foot, where a large full- thickness necrotic was identified. 50 blade was utilized sharply revised skin margins. Dissection was then carried down deep to the D fashion with exposure of the extensor and flexor tendon and tendon sheath multiple sites, both proximally and distally. All necrotic nonviable infected tissue sharply evacuated from the wound bed. The dorsal flap was then extended proximally exposing the distal 2 cm of first second third fourth and fifth metatarsals. A sagittal bone saw was utilized to resect these osseous segments. Specimen was sent for pathologic inspection. The open wound was then irrigated with 3 L of normal sterile saline infusion 50,000 units of bacitracin. Following this, the foot was redraped and the surgeon's top was changed clean gloves. Any bleeding vessels identified were cauterized or ligated as encountered. Negative pressure wound therapy was then placed followed by a [place]. The patient was noted tolerate both procedure and anesthesia well and the patient was transported from the operating room to recovery with vital signs stable.
[2017-08-14 15:30] VITALS: BP 110/62
--- NOTE | 2017-08-14 17:20 | PN- Vascular Surgery ---
Subjective Subjective: pt seen and examined. history of DM. no smoking. Right foot wound s/p tma. arterial duplex removed and is normal. palpable pulses. bilateral chronic venous stasis changes. right leg swelling. Review of Systems: denies Objective Vital Signs and I&Os Vital Signs Date Time Temp Pulse Resp B/P B/P Pulse O2 O2 Flow FiO2 Mean Ox Delivery Rate 08/14 1530 98.1 75 20 110/62 97 Room Air 08/14 0616 97.6 75 20 110/72 95 Room Air 08/13 2218 98.5 88 18 114/60 95 Room Air Intake & Output 08/14 1600 08/14 0800 08/14 0000 08/13 1600 08/13 0800 08/13 0000 Intake Total 700 1010 1325 650 200 Output Total 1500 400 400 900 950 450 Balance -800 610 -400 425 -300 -250 Intake, IV 700 650 525 650 200 Intake, Oral 360 800 Output, Urine 1500 400 400 900 950 450 Patient 204 lb Weight Weight Bed scale Measurement Method Assessment/Plan Assessment/Plan 62 y/o m w/ diabetic foot wound s/p right tma. palpable pulses. arterial duplex. appears to have adeaqute arterial blood flow for wound healing. does have chronic venous stasis. needs leg elevation. compression upon discharge. Fu with me in office for futher treatment. Problem List: 1. Osteomyelitis Attending MD Review Statement Attending Statement Attending MD Statement: discuss w/resident/PA/PARAFFIN PLANT OPERATOR
--- NOTE | 2017-08-14 17:35 | PN- Infect Dx ---
Subjective Subjective: Afebrile without complaints. Objective Last 24 Hrs of Vital Signs/I&O Vital Signs Date Time Temp Pulse Resp B/P B/P Pulse O2 O2 Flow FiO2 Mean Ox Delivery Rate 08/14 1530 98.1 75 20 110/62 97 Room Air 08/14 0616 97.6 75 20 110/72 95 Room Air 08/13 2218 98.5 88 18 114/60 95 Room Air Intake & Output 08/14 1600 08/14 0800 08/14 0000 Intake Total 700 1010 Output Total 1500 400 400 Balance -800 610 -400 Intake, IV 700 650 Intake, Oral 360 Output, Urine 1500 400 400 Physical Exam Other Physical Findings: He appears comfortable in no acute distress Extremities right foot dressing intact, with wound VAC in place Results Last 24 Hours of Lab Results: Laboratory Tests 08/14 0811 Chemistry Sodium (137 - 145 mmol/L) 138 Potassium (3.5 - 5.1 mmol/L) 4.4 Chloride (98 - 107 mmol/L) 101 Carbon Dioxide (22 - 30 mmol/L) 27 Anion Gap (5 - 16) 10 BUN (9 - 20 mg/dL) 11 Creatinine (0.7 - 1.2 mg/dL) 0.7 Estimated GFR (>60 ml/min) > 60 BUN/Creatinine Ratio (7 - 25 %) 15.7 Hematology CBC w Diff NO MAN DIFF REQ WBC (4.8 - 10.8 /CUMM) 10.7 RBC (4.70 - 6.10 /CUMM) 3.53 L Hgb (14.0 - 18.0 G/DL) 9.7 L Hct (42 - 52 %) 29.5 L MCV (80.0 - 94.0 FL) 83.4 MCH (27.0 - 31.0 PG) 27.5 RDW (11.5 - 14.5 %) 13.3 Plt Count (130 - 400 /CUMM) 372 MPV (7.4 - 10.4 FL) 7.6 Gran % (42.2 - 75.2 %) 73.1 Lymphocytes % (20.5 - 51.1 %) 17.4 L Monocytes % (1.7 - 9.3 %) 6.4 Eosinophils % (0 - 5 %) 2.8 Basophils % (0.0 - 2.0 %) 0.3 Absolute Granulocytes (1.4 - 6.5 /CUMM) 7.8 H Absolute Lymphocytes (1.2 - 3.4 /CUMM) 1.9 Absolute Monocytes (0.10 - 0.60 /CUMM) 0.7 H Absolute Eosinophils (0.0 - 0.7 /CUMM) 0.3 Absolute Basophils (0.0 - 0.2 /CUMM) 0 PUBS MCHC (33.0 - 37.0 G/DL) 33.0 Last 24 Hours of Frank Results: OR culture August 12 labeled right foot bone positive for Enterococcus, Staph aureus and gram-negative rods OR culture August 12 labeled right foot soft tissue positive for Group G strep, Staph aureus, Proteus, sensitive to all antibiotics tested, and a second gram- negative khalif Blood cultures 2 August 12 negative Recent Imaging Studies: Doppler of the right lower extremity August 13 no evidence of DVT Assessment/Plan Impression: Stable, with temperatures remaining normal and white blood cell count now normal , 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 He will require a 4 week course of antibiotics from today for a presumed residual osteomyelitis. Suggestion: 1. Follow-up final OR cultures 2. Would proceed with placement of a PICC 3. Continue Unasyn pending above
[2017-08-14 22:15] VITALS: BP 120/80
[2017-08-15 06:20] VITALS: BP 120/68
[2017-08-15 09:40] LABS: ABSOLUTE BASOPHIL COUNT 0 /CUMM (0.0-0.2); ABSOLUTE EOSINOPHIL COUNT 0.3 /CUMM (0.0-0.7); ABSOLUTE GRANULOCYTE CT 6.4 /CUMM (1.4-6.5); ABSOLUTE LYMPH COUNT 1.9 /CUMM (1.2-3.4); ABSOLUTE MONOCYTE COUNT 0.6 /CUMM (0.10-0.60); BASOPHIL % 0.3 % (0.0-2.0); EOSINOPHIL % 3.6 % (0-5); GRANULOCYTE % 68.9 % (42.2-75.2); HEMATOCRIT 28.1 % (42-52); MEAN CORPUSCULAR HGB 27.5 PG (27.0-31.0); MEAN CORPUSCULAR HGB CONC 33.1 G/DL (33.0-37.0); MEAN PLATELET VOLUME 7.6 FL (7.4-10.4); PLATELET COUNT 387 /CUMM (130-400); RBC DISTRIBUTION WIDTH 13.6 % (11.5-14.5); RED BLOOD CELL CT 3.39 /CUMM (4.70-6.10); WHITE BLOOD CELL COUNT 9.3 /CUMM (4.8-10.8)
--- NOTE | 2017-08-15 09:56 | PN- Housestaff ---
Eric Villeda 08/15/17 0956: Subjective Follow-up For: gangrene osteomyelitis Subjective: Patient was seen and examined today. Patient alert,, oriented. Vitals stable on room air, afebrile blood pressure within acceptable limits. Review of Systems Constitutional: Denies: chills, fever. Cardiovascular: Denies: chest pain, palpitations. Respiratory: Denies: cough, short of breath, sputum production. Gastrointestinal: Denies: abdominal pain, nausea, vomiting. Objective Last 24 Hrs of Vital Signs/I&O Vital Signs Date Time Temp Pulse Resp B/P B/P Pulse O2 O2 Flow FiO2 Mean Ox Delivery Rate 08/15 2235 97.7 73 20 120/80 95 Room Air 08/15 1439 98.8 76 20 110/60 96 08/15 0620 98.7 72 18 120/68 95 Room Air Intake & Output 08/15 1600 08/15 0800 08/15 0000 Intake Total 1120 450 200 Output Total 700 630 480 Balance 420 -180 -280 Intake, IV 300 250 Intake, Oral 820 200 200 Number 1 Bowel Movements Output, 30 20 Drainage Output, Urine 700 600 460 Physical Exam General Appearance: Alert, Oriented X3, Cooperative HEENT: PERRLA, EOMI Neck: Supple Cardiovascular: Normal S1, Normal S2 Lungs: Normal Air Movement Abdomen: Normal Bowel Sounds, Soft Extremities: right foot dressing noted, clean Current Medications: Current Medications Sig/Rosanne Start time Last Medication Dose Route Stop Time Status Admin Acetaminophen 650 MG Q6P PRN 08/12 1615 AC PO Acetaminophen 1,000 MG Q6P PRN 08/12 1615 AC IV Ampicillin Sodium/ 3,000 MG Q6 08/12 2359 AC 08/15 Sulbactam Sodium IV 2303 Sodium Chloride 100 ML Insulin Aspart 0 AT BEDTIME 08/13 2199 AC 08/14 CT 2214 Insulin Aspart 0 TIDAC 08/13 1700 AC 08/15 CT 1728 Insulin Detemir 10 UNITS BID 08/15 2200 AC 08/15 CT 2126 Insulin Detemir 8 UNITS BID 08/14 2200 DC 08/15 CT 0930 Morphine Sulfate 2 MG Q6-PRN PRN 08/12 1615 AC IV Last 24 Hrs of Lab/Frank Results Last 24 Hrs of Labs/Mics: Laboratory Tests 08/15/17 0735: CBC w Diff NO MAN DIFF REQ, RBC 3.39 L, MCV 83.0, MCH 27.5, RDW 13.6, MPV 7.6, Gran % 68.9, Lymphocytes % 20.3 L, Monocytes % 6.9, Eosinophils % 3.6, Basophils % 0.3, Absolute Granulocytes 6.4, Absolute Lymphocytes 1.9, Absolute Monocytes 0.6, Absolute Eosinophils 0.3, Absolute Basophils 0, PUBS MCHC 33.1 Assessment/Plan Assessment: 62 yo M with no significant pmhx presents gangrenous right foot s/p open MTA most likely due to diabetes #gangernous R foot Currently s/p open MTA wbc 22.1 -> 15.1 -> 10.7, CRP >9.0 LE arterial doppler normal Foot xray:erosions at the first MTP joint, subluxation of the second through fourth MTP joints, and fracture versus erosion at the head of the second metatarsal. presence of soft tissue gas and swelling with adjacent osseous irregularities Aterial duplex of LE = negative cx: gram - rods, staph aureus, enteroccoccus, group b strep, proteus mirabilis -needs PICC line placed for discharge -patient going for closure surgery today -continue unasyn per ID -leg elevation with compression stockings on discharge. f/u with vascular surgery -f/u blood and biopsy cultures #diabetes Blood sugars elevated 300+ upon admission Pt also reports neuropathy, dysuria, and weightloss Bun 19, Cr 1.1 HgbA1c 12.6 -f/u endo recommendations for BS control #electrolyte abnormalities - resolved na 132 -> 136 -> 138 K 5.2 -> 4.6 -> 4.4 -continue to monitor and correct as needed #dvt prophylaxis -sub q heparin #FULL CODE Problem List: 1. Osteomyelitis Pain Ratin Pain Location: 0 Pain Goal: Pain 4 or less Pain Plan: same Tomorrow's Labs & Rationales: cbc nusratp Celeste CORRALES,Amir 08/15/17 1135: Attending MD Review Statement Attending Statement Attending Statement: examined this patient, discuss w/resident/PA/DIVORCE LAWYER, agreed w/resident/PA/DIVORCE LAWYER, reviewed EMR data (avail), discussed with nursing Attending Assessment/Plan: Mr. Gan was seen and evaluated. Chart reviewed. Has been evalauted by ID & Endo --cont to tirtate insulin as FBS not optimally controlled --remains afebrile on IV abx --f/u C&S --rest of the plan as pre resident's note
--- NOTE | 2017-08-15 10:30 | PN- Infect Dx ---
Subjective Subjective: Afebrile without complaints. Objective Last 24 Hrs of Vital Signs/I&O Vital Signs Date Time Temp Pulse Resp B/P B/P Pulse O2 O2 Flow FiO2 Mean Ox Delivery Rate 08/15 0620 98.7 72 18 120/68 95 Room Air 08/14 2215 99.1 89 20 120/80 92 Room Air 08/14 1530 98.1 75 20 110/62 97 Room Air Intake & Output 08/15 1600 08/15 0800 08/15 0000 Intake Total 450 200 Output Total 630 480 Balance -180 -280 Intake, IV 250 Intake, Oral 200 200 Number 1 Bowel Movements Output, 30 20 Drainage Output, Urine 600 460 Physical Exam Other Physical Findings: He appears comfortable in no acute distress Extremities right foot dressing intact Results Last 24 Hours of Lab Results: Laboratory Tests 08/15 0735 Hematology CBC w Diff Pending WBC Pending RBC Pending Hgb Pending Hct Pending MCV Pending MCH Pending RDW Pending Plt Count Pending MPV Pending PUBS MCHC Pending Last 24 Hours of Frank Results: OR culture August 12 labeled right foot bone positive for Staph aureus sensitive to Oxacillin, Enterococcus sensitive to Ampicillin and gram-negative rods OR culture August 12 labeled right foot soft tissue positive for Proteus mirabilis sensitive to all antibiotics tested, Group G strep, Staph aureus sensitive to Oxacillin and a second gram-negative khalif, to be identified Assessment/Plan Impression: Stable, with temperatures and white blood cell count normal, on Unasyn for a polymicrobial osteomyelitis, status post a right transmetatarsal amputation 3 days ago and a revisional debridement yesterday. He will require a 4 week course of antibiotics for a presumed residual osteomyelitis and can be continued on Unasyn pending final cultures. Suggestion: 1. Follow-up final OR cultures 2. Would proceed with placement of a PICC after the weekend 3. Continue Unasyn pending above
--- NOTE | 2017-08-15 12:41 | PN- Diabetes ---
Assessment/Plan Assessment: This 62-year-old male presented to the emergency room with gangrene and gas formation in his right foot. He was taken to the operating room by Dr. Chavez. He denies any previous history of diabetes but his blood sugars were found to be high. In addition his hemoglobin A1c was 12.6 prior to admission consistent with uncontrolled diabetes. He was put on Levemir 8 units twice a day and Novolog coverage before meals, Novolog coverage at bedtime. Currently he is on consistent carbohydrates diet 3 which allows patient to have 75 grams-90 grams of carbohydrates per meal. His FSGs were 141, 261, 250 and 305. Plan: 1. diet control; nutrition consult; 2. DM education--- glucometer, insulin injection teaching etc; 3. recommend changing diet to consistent carbohydrates 1 which allow patient to have up to 60 grams of carbohydrates per meal; 4. increase Levemir to 10 units twice a day; 5. adjust Novolog coverage before meals; detail see the inpatient DM order; 6. continue the current Novolog coverage at bedtime; 7. monitor FSGs. will follow. Inpatient Diabetes Orders Before Each Meal: Bolus Insulin: Novolog < 80 mg/dl: no coverage 80-100 mg/dl: 5 units 101-120 mg/dl: 5 units 121-150 mg/dl: 5 units 151-200 mg/dl: 6 units 201-250 mg/dl: 7 units 251-300 mg/dl: 8 units 301-350 mg/dl: 9 units 351-400 mg/dl: 10 units > 400 mg/dl: 12 units Subjective Subjective: His glucose level hasn't been controlled. Objective Last 24 Hrs of Vital Signs/I&O Vital Signs Date Time Temp Pulse Resp B/P B/P Pulse O2 O2 Flow FiO2 Mean Ox Delivery Rate 08/15 0620 98.7 72 18 120/68 95 Room Air 08/14 2215 99.1 89 20 120/80 92 Room Air 08/14 1530 98.1 75 20 110/62 97 Room Air Intake & Output 08/15 1600 08/15 0800 08/15 0000 Intake Total 500 450 200 Output Total 300 630 480 Balance 200 -180 -280 Intake, IV 250 Intake, Oral 500 200 200 Number 1 Bowel Movements Output, 30 20 Drainage Output, Urine 300 600 460 Findings Pertinent Lab/Frank Results: Laboratory Tests 08/15 0735 Hematology CBC w Diff NO MAN DIFF REQ WBC (4.8 - 10.8 /CUMM) 9.3 RBC (4.70 - 6.10 /CUMM) 3.39 L Hgb (14.0 - 18.0 G/DL) 9.3 L Hct (42 - 52 %) 28.1 L MCV (80.0 - 94.0 FL) 83.0 MCH (27.0 - 31.0 PG) 27.5 RDW (11.5 - 14.5 %) 13.6 Plt Count (130 - 400 /CUMM) 387 MPV (7.4 - 10.4 FL) 7.6 Gran % (42.2 - 75.2 %) 68.9 Lymphocytes % (20.5 - 51.1 %) 20.3 L Monocytes % (1.7 - 9.3 %) 6.9 Eosinophils % (0 - 5 %) 3.6 Basophils % (0.0 - 2.0 %) 0.3 Absolute Granulocytes (1.4 - 6.5 /CUMM) 6.4 Absolute Lymphocytes (1.2 - 3.4 /CUMM) 1.9 Absolute Monocytes (0.10 - 0.60 /CUMM) 0.6 Absolute Eosinophils (0.0 - 0.7 /CUMM) 0.3 Absolute Basophils (0.0 - 0.2 /CUMM) 0 PUBS MCHC (33.0 - 37.0 G/DL) 33.1
[2017-08-15 14:39] VITALS: BP 110/60
[2017-08-15 22:35] VITALS: BP 120/80
[2017-08-16 06:41] VITALS: BP 120/70
[2017-08-16 09:41] LABS: ABSOLUTE BASOPHIL COUNT 0 /CUMM (0.0-0.2); ABSOLUTE EOSINOPHIL COUNT 0.5 /CUMM (0.0-0.7); ABSOLUTE GRANULOCYTE CT 4.2 /CUMM (1.4-6.5); ABSOLUTE LYMPH COUNT 1.7 /CUMM (1.2-3.4); ABSOLUTE MONOCYTE COUNT 0.4 /CUMM (0.10-0.60); BASOPHIL % 0.5 % (0.0-2.0); EOSINOPHIL % 7.1 % (0-5); GRANULOCYTE % 60.9 % (42.2-75.2); MEAN CORPUSCULAR HGB 27.7 PG (27.0-31.0); MEAN CORPUSCULAR HGB CONC 33.5 G/DL (33.0-37.0); MEAN CORPUSCULAR VOLUME 82.7 FL (80.0-94.0); MEAN PLATELET VOLUME 7.6 FL (7.4-10.4); PLATELET COUNT 392 /CUMM (130-400); RBC DISTRIBUTION WIDTH 13.6 % (11.5-14.5); WHITE BLOOD CELL COUNT 6.9 /CUMM (4.8-10.8)
--- NOTE | 2017-08-16 09:56 | PN- Housestaff ---
Paulo CORRALES,[facility] 08/16/17 0956: Subjective Follow-up For: gangrene osteomyelitis Tele-Events Since Last Visit: No acute issues overnight. Asking when to be discharged. Review of Systems Constitutional: Reports: no symptoms. Cardiovascular: Reports: no symptoms. Respiratory: Reports: no symptoms. Gastrointestinal: Reports: no symptoms. Genitourinary: Reports: no symptoms. Musculoskeletal: Reports: see HPI. Skin: Reports: see HPI. Objective Last 24 Hrs of Vital Signs/I&O Vital Signs Date Time Temp Pulse Resp B/P B/P Pulse O2 O2 Flow FiO2 Mean Ox Delivery Rate 08/16 2243 98.0 77 20 110/60 96 Room Air 08/16 1542 98.1 76 20 110/80 96 08/16 0641 97.6 70 20 120/70 96 Room Air Intake & Output 08/16 1600 08/16 0800 08/16 0000 Intake Total 960 400 200 Output Total 500 410 780 Balance 460 -10 -580 Intake, IV 250 Intake, Oral 960 150 200 Output, 10 0 Drainage Output, Urine 500 400 780 Physical Exam General Appearance: Alert, Oriented X3, Cooperative Skin: R foot with drain covered in dressing Cardiovascular: Regular Rate, Normal S1, Normal S2 Lungs: Clear to Auscultation, Normal Air Movement Abdomen: Normal Bowel Sounds, Soft, No Tenderness Extremities: No Clubbing, No Cyanosis, No Edema Other Physical Findings: bloody drainage from foot Current Medications: Current Medications Sig/Rosanne Start time Last Medication Dose Route Stop Time Status Admin Acetaminophen 650 MG Q6P PRN 08/12 1615 AC PO Acetaminophen 1,000 MG Q6P PRN 08/12 1615 AC IV Ampicillin Sodium/ 3,000 MG Q6 08/12 2359 08/16 Sulbactam Sodium IV 1710 Sodium Chloride 100 ML Insulin Aspart 0 AT BEDTIME 08/13 2199 AC 08/16 MD 220 Insulin Aspart 0 TIDAC 08/13 1700 AC 08/16 MD 1709 Insulin Detemir 10 UNITS BID 08/15 2199 08/16 MD 220 Morphine Sulfate 2 MG Q6-PRN PRN 08/12 1615 AC IV Last 24 Hrs of Lab/Frank Results Last 24 Hrs of Labs/Mics: Laboratory Tests 08/16/17 0745: Anion Gap 11, Estimated GFR > 60, BUN/Creatinine Ratio 15.7, CBC w Diff NO MAN DIFF REQ, RBC 3.50 L, MCV 82.7, MCH 27.7, RDW 13.6, MPV 7.6, Gran % 60.9, Lymphocytes % 25.1, Monocytes % 6.4, Eosinophils % 7.1 H, Basophils % 0.5, Absolute Granulocytes 4.2, Absolute Lymphocytes 1.7, Absolute Monocytes 0.4, Absolute Eosinophils 0.5, Absolute Basophils 0, PUBS MCHC 33.5 Assessment/Plan Assessment: 62 yo M with no significant pmhx presents gangrenous right foot s/p open MTA most likely due to diabetes #gangernous R foot Currently s/p open MTA wbc 22.1 -> 6.9 CRP >9.0 LE arterial doppler normal Foot xray:erosions at the first MTP joint, subluxation of the second through fourth MTP joints, and fracture versus erosion at the head of the second metatarsal. presence of soft tissue gas and swelling with adjacent osseous irregularities Aterial duplex of LE = negative cx: gram - rods, staph aureus, enteroccoccus, group b strep, proteus mirabilis, diptheroids -needs PICC line placed for discharge -continue unasyn per ID -leg elevation with compression stockings on discharge. f/u with vascular surgery -f/u blood and biopsy cultures #diabetes Blood sugars elevated 300+ upon admission Pt also reports neuropathy, dysuria, and weightloss Bun 19, Cr 1.1 HgbA1c 12.6 -f/u endo recommendations for BS control -discharge with glucometer and insulin teaching #electrolyte abnormalities - resolved na 132 -> 136 -> 139 K 5.2 -> 4.6 -> 4.6 -continue to monitor and correct as needed #dvt prophylaxis -sub q heparin #FULL CODE Problem List: 1. Diabetes 2. Osteomyelitis Pain Ratin Pain Location: R foot Pain Goal: Pain 4 or less Pain Plan: pain pathway Tomorrow's Labs & Rationales: cbc bep esr Celeste CORRALES,Amir 08/16/17 1158: Attending MD Review Statement Attending Statement Attending MD Statement: examined this patient, discuss w/resident/PA/LINSEED OIL BOILER, agreed w/resident/PA/LINSEED OIL BOILER, reviewed EMR data (avail), discussed with nursing Attending Assessment/Plan: Pt was seen and evaluated. Reports doing better. Afebirel, FBS sl improved. -- cont to titrate insulin -- appreciate ID/Endo input -- pt will need PCP appointment before d/c -- rest of the plan as per resident's note
--- NOTE | 2017-08-16 12:28 | PN- Infect Dx ---
Subjective Subjective: No fever. No n/v/diarrhea. Review of Systems Comments: 12 points review per HPI Objective Last 24 Hrs of Vital Signs/I&O Vital Signs Date Time Temp Pulse Resp B/P B/P Pulse O2 O2 Flow FiO2 Mean Ox Delivery Rate 08/16 0641 97.6 70 20 120/70 96 Room Air 08/15 2235 97.7 73 20 120/80 95 Room Air 08/15 1439 98.8 76 20 110/60 96 Intake & Output 08/16 1600 08/16 0800 08/16 0000 Intake Total 600 400 200 Output Total 500 410 780 Balance 100 -10 -580 Intake, IV 250 Intake, Oral 600 150 200 Output, 10 0 Drainage Output, Urine 500 400 780 Physical Exam Other Physical Findings: Afebrile. He is awake and alert in no acute distress. Skin reveals no rash. HEENT negative. Neck is supple with no adenopathy. Lungs are clear. Heart regular rhythm with no murmur. Abdomen is soft, nontender with positive bowel sounds. Back no CVA tenderness. Extremities right foot dressing intact; venous stasis changes both lower extremities, with a superficial ulceration over the anterior tibial aspect of the right leg; left foot callous on the medial aspect of the left third toe. Neuro neuropathy both feet. Results Last 24 Hours of Lab Results: Laboratory Tests 08/16 0745 Chemistry Sodium (137 - 145 mmol/L) 139 Potassium (3.5 - 5.1 mmol/L) 4.6 Chloride (98 - 107 mmol/L) 101 Carbon Dioxide (22 - 30 mmol/L) 27 Anion Gap (5 - 16) 11 BUN (9 - 20 mg/dL) 11 Creatinine (0.7 - 1.2 mg/dL) 0.7 Estimated GFR (>60 ml/min) > 60 BUN/Creatinine Ratio (7 - 25 %) 15.7 Hematology CBC w Diff NO MAN DIFF REQ WBC (4.8 - 10.8 /CUMM) 6.9 RBC (4.70 - 6.10 /CUMM) 3.50 L Hgb (14.0 - 18.0 G/DL) 9.7 L Hct (42 - 52 %) 29.0 L MCV (80.0 - 94.0 FL) 82.7 MCH (27.0 - 31.0 PG) 27.7 RDW (11.5 - 14.5 %) 13.6 Plt Count (130 - 400 /CUMM) 392 MPV (7.4 - 10.4 FL) 7.6 Gran % (42.2 - 75.2 %) 60.9 Lymphocytes % (20.5 - 51.1 %) 25.1 Monocytes % (1.7 - 9.3 %) 6.4 Eosinophils % (0 - 5 %) 7.1 H Basophils % (0.0 - 2.0 %) 0.5 Absolute Granulocytes (1.4 - 6.5 /CUMM) 4.2 Absolute Lymphocytes (1.2 - 3.4 /CUMM) 1.7 Absolute Monocytes (0.10 - 0.60 /CUMM) 0.4 Absolute Eosinophils (0.0 - 0.7 /CUMM) 0.5 Absolute Basophils (0.0 - 0.2 /CUMM) 0 PUBS MCHC (33.0 - 37.0 G/DL) 33.5 Last 24 Hours of Frank Results: Procedure Result > GRAM STAIN Final 08/13/17-1004 WHITE BLOOD CELLS RARE GRAM POSITIVE COCCI MANY IN PAIRS GRAM NEGATIVE RODS MANY GRAM POSITIVE RODS MANY > EXTREMITIES OR SPECIMEN Preliminary 08/16/17-1140 Heavy growth of: 1. PROTEUS MIRABILIS 2. BETA STREP GROUP G Penicillin and Ampicillin are drugs of choice for beta-hemolytic streptococcal infections. Susceptibility testing of penicillins and other beta-lactams are not routinely performed because non-susceptible isolates have only rarely been reported. Note: If patient is allergic to Penicillin, the laboratory can perform Clindamycin testing upon request. Please call within 5 days of final report. Called to/Readback by EDDIE by [email or web address] 08/13/17 1200 Light growth of: 4. GRAM NEGATIVE RODS Identification and sensitivities STILL to follow 5. STAPH AUREUS PLEASE SEE B777 FOR SENSI 6. DIPHTHEROIDS 1. PROTEUS MIRABILIS RX AB ------ -- AMPICILLIN S CEFAZOLIN S AMOXICILLIN/CLAVULINIC ACID S AMPICILLIN/SULBACTAM S CIPROFLOXACIN S GENTAMICIN S TRIMETHOPRIM/SULFAMETHOXAZOLE S Recent Imaging Studies: X ray IMPRESSION: Abnormalities in the regions of the first through fourth MTP joints as detailed above. These include erosions at the first MTP joint, subluxation of the second through fourth MTP joints, and fracture versus erosion at the head of the second metatarsal. Additional erosions may be present, with detail of osseous evaluation limited due to superimposed soft tissue gas. Though these findings are age-indeterminate, the presence of soft tissue gas and swelling with adjacent osseous irregularities is suspicious for osteomyelitis in the proper clinical setting. DICTATED BY: Matthew Sterling MD DATE/TIME DICTATED:08/12/171334 CUSTOMER SUPPORT ANALYST:YVETTE DATE/TIME TRANSCRIBED:08/12/171334 Assessment/Plan Impression: 62-year-old man with no past medical history admitted on August 12 with a one- month history of swelling over the dorsum of the right foot and a callous on the plantar aspect, with intermittent drainage, and a 4 to 5 day history of discoloration of the toes of the right foot, found to be afebrile with a leukocytosis and with an x-ray of the right foot revealing findings suggestive of osteomyelitis of the first through fourth MTP joints, now status post right foot TMA. Stable, with temperatures and white blood cell count normal, on Unasyn for a polymicrobial osteomyelitis, status post a right transmetatarsal amputation 4 days ago and a revisional debridement 08/14/17. Wound cx from 08/12 grew MSSA, Enterococcus, Strep gr B and Proteus mirabilis. Suggestion: 1. He will require a 4 week course of antibiotics for a presumed residual osteomyelitis; weekly CBC, BMP, ESR while on iv abx. 2. Would proceed with placement of a PICC after the weekend 3. Continue Unasyn D #12/28.
--- NOTE | 2017-08-16 12:52 | PN- Diabetes ---
Assessment/Plan Assessment: This 62-year-old male presented to the emergency room with gangrene and gas formation in his right foot. He was taken to the operating room by Dr. Chavez. He denies any previous history of diabetes but his blood sugars were found to be high. In addition his hemoglobin A1c was 12.6 prior to admission consistent with uncontrolled diabetes. He was put on Levemir 8 units twice a day and Novolog coverage before meals, Novolog coverage at bedtime. His diet was changed from the consistent carbohydrates diet 3 to the consistent carbohydrates diet 1. Levemir was increased to 10 units twice a day and Novolog coverage before meals was adjusted on 08/15/2017. His FSGs were n305, 217, 221, 202 and 173. Plan: Continue the current insulin regimen for now; DM education-- glucometer and insulin injection teaching; nutrition consult; monitor FSGs. will follow. Subjective Subjective: His glucose level has been improving. Objective Last 24 Hrs of Vital Signs/I&O Vital Signs Date Time Temp Pulse Resp B/P B/P Pulse O2 O2 Flow FiO2 Mean Ox Delivery Rate 08/16 0641 97.6 70 20 120/70 96 Room Air 08/15 2235 97.7 73 20 120/80 95 Room Air 08/15 1439 98.8 76 20 110/60 96 Intake & Output 08/16 1600 08/16 0800 08/16 0000 Intake Total 600 400 200 Output Total 500 410 780 Balance 100 -10 -580 Intake, IV 250 Intake, Oral 600 150 200 Output, 10 0 Drainage Output, Urine 500 400 780 Findings Pertinent Lab/Frank Results: Laboratory Tests 08/16 0745 Chemistry Sodium (137 - 145 mmol/L) 139 Potassium (3.5 - 5.1 mmol/L) 4.6 Chloride (98 - 107 mmol/L) 101 Carbon Dioxide (22 - 30 mmol/L) 27 Anion Gap (5 - 16) 11 BUN (9 - 20 mg/dL) 11 Creatinine (0.7 - 1.2 mg/dL) 0.7 Estimated GFR (>60 ml/min) > 60 BUN/Creatinine Ratio (7 - 25 %) 15.7 Hematology CBC w Diff NO MAN DIFF REQ WBC (4.8 - 10.8 /CUMM) 6.9 RBC (4.70 - 6.10 /CUMM) 3.50 L Hgb (14.0 - 18.0 G/DL) 9.7 L Hct (42 - 52 %) 29.0 L MCV (80.0 - 94.0 FL) 82.7 MCH (27.0 - 31.0 PG) 27.7 RDW (11.5 - 14.5 %) 13.6 Plt Count (130 - 400 /CUMM) 392 MPV (7.4 - 10.4 FL) 7.6 Gran % (42.2 - 75.2 %) 60.9 Lymphocytes % (20.5 - 51.1 %) 25.1 Monocytes % (1.7 - 9.3 %) 6.4 Eosinophils % (0 - 5 %) 7.1 H Basophils % (0.0 - 2.0 %) 0.5 Absolute Granulocytes (1.4 - 6.5 /CUMM) 4.2 Absolute Lymphocytes (1.2 - 3.4 /CUMM) 1.7 Absolute Monocytes (0.10 - 0.60 /CUMM) 0.4 Absolute Eosinophils (0.0 - 0.7 /CUMM) 0.5 Absolute Basophils (0.0 - 0.2 /CUMM) 0 PUBS MCHC (33.0 - 37.0 G/DL) 33.5
[2017-08-16 15:42] VITALS: BP 110/80
[2017-08-16 22:43] VITALS: BP 110/60
[2017-08-17 06:30] VITALS: BP 112/68
--- NOTE | 2017-08-17 07:35 | PN- Housestaff ---
Paulo CORRALES,[facility] 08/17/17 0735: Subjective Follow-up For: gangrene ostoemyelitis Subjective: No acute events overnight. No issues. No pain Review of Systems Constitutional: Reports: no symptoms. Cardiovascular: Reports: no symptoms. Respiratory: Reports: no symptoms. Gastrointestinal: Reports: no symptoms. Genitourinary: Reports: no symptoms. Musculoskeletal: Reports: see HPI. Skin: Reports: see HPI. Objective Last 24 Hrs of Vital Signs/I&O Vital Signs Date Time Temp Pulse Resp B/P B/P Pulse O2 O2 Flow FiO2 Mean Ox Delivery Rate 08/17 1412 98.0 78 18 112/70 96 Room Air 08/17 0630 97.8 80 20 112/68 95 Room Air 08/16 2243 98.0 77 20 110/60 96 Room Air Intake & Output 08/17 1600 08/17 0800 08/17 0000 Intake Total 360 250 580 Output Total 400 1225 300 Balance -40 -975 280 Intake, IV 250 100 Intake, Oral 360 480 Output, Urine 400 1225 300 Physical Exam General Appearance: Alert, Oriented X3, Cooperative Skin: R foot covered in dressing with wound vac Cardiovascular: Regular Rate, Normal S1, Normal S2 Lungs: Clear to Auscultation, Normal Air Movement Abdomen: Normal Bowel Sounds, Soft, No Tenderness Extremities: 2+ radial pulses Other Physical Findings: wound vac draining red fluid/blood Current Medications: Current Medications Sig/Rosanne Start time Last Medication Dose Route Stop Time Status Admin Acetaminophen 650 MG Q6P PRN 08/12 1615 AC PO Acetaminophen 1,000 MG Q6P PRN 08/12 1615 AC IV Ampicillin Sodium/ 3,000 MG Q6 08/12 2359 08/17 Sulbactam Sodium IV 1716 Sodium Chloride 100 ML Dextrose/Sodium 1,000 ML Q13H 08/18 0000 AC Chloride IV Insulin Aspart 0 Q4 08/18 0000 AC SC Insulin Aspart 0 AT BEDTIME 08/13 2200 AC 08/17 PR 08/18 0000 2011 Insulin Aspart 0 TIDAC 08/13 1700 AC 08/17 PR 08/18 0000 1716 Insulin Detemir 5 UNITS BID 08/17 2200 AC 08/17 SC 2011 Insulin Detemir 10 UNITS BID 08/15 2200 DC 08/17 SC 0758 Morphine Sulfate 2 MG Q6-PRN PRN 08/12 1615 AC IV Sodium Chloride 1,000 ML Q13H 08/18 0000 CAN IV Last 24 Hrs of Lab/Frank Results Last 24 Hrs of Labs/Mics: Laboratory Tests 08/17/17 0753: Anion Gap 11, Estimated GFR > 60, BUN/Creatinine Ratio 21.4, CBC w Diff NO MAN DIFF REQ, RBC 3.71 L, MCV 82.9, MCH 27.3, RDW 13.4, MPV 7.4, Gran % 61.7, Lymphocytes % 25.1, Monocytes % 6.3, Eosinophils % 6.6 H, Basophils % 0.3, Absolute Granulocytes 4.7, Absolute Lymphocytes 1.9, Absolute Monocytes 0.5, Absolute Eosinophils 0.5, Absolute Basophils 0, PUBS MCHC 32.9 L, ESR Westergren 101 H Assessment/Plan Assessment: 62 yo M with no significant pmhx presents gangrenous right foot s/p open MTA most likely due to diabetes #gangernous R foot Currently s/p open MTA wbc 22.1 -> 7.7 CRP >9.0 LE arterial doppler normal Foot xray:erosions at the first MTP joint, subluxation of the second through fourth MTP joints, and fracture versus erosion at the head of the second metatarsal. presence of soft tissue gas and swelling with adjacent osseous irregularities Aterial duplex of LE = negative cx: gram - rods, staph aureus, enteroccoccus, group b strep, proteus mirabilis, diptheroids -will go to OR tomorrow for wound closure -has PICC placed. pt will need 4 weeks of abx -continue unasyn per ID -leg elevation with compression stockings on discharge. f/u with vascular surgery -f/u blood and biopsy cultures #diabetes Blood sugars elevated 300+ upon admission Pt also reports neuropathy, dysuria, and weightloss Bun 19, Cr 1.1 HgbA1c 12.6 -f/u endo recommendations for BS control -discharge with glucometer and insulin teaching #electrolyte abnormalities - resolved na 132 -> 136 -> 140 K 5.2 -> 4.6 -> 4.6 -continue to monitor and correct as needed #dvt prophylaxis sub q heparin but holding for surgery tomorrow #FULL CODE Problem List: 1. Osteomyelitis Pain Ratin Pain Location: none Pain Goal: Pain 4 or less Pain Plan: pain pathway Tomorrow's Labs & Rationales: cbc bep Sharath Ibrahim 08/17/17 1200: Attending MD Review Statement Attending Statement Attending MD Statement: examined this patient, discuss w/resident/PA/CDL SERVICE TECHNICIAN, agreed w/resident/PA/CDL SERVICE TECHNICIAN, discussed with family, reviewed EMR data (avail), discussed with nursing, discussed with case mgmt, reviewed images, amended to note Attending Assessment/Plan: Pt was seen and examined. Reports doing better. Afebirel, FBS sl improved. Patient had surgery as per podiatry service. Patient is on iv antibiotics as per ID service. Patient needs PICC line placemeent for iv abx. He is scheduled for OR tomorrow. Endo following for new osnet DM. Hb a1c >12. Inuslin would benefit. Provide diabetes education and insulin administration teaching. Conuslt case management for dc planning. PCP referral at discharge. O/p f/u with podiatry, o/ p f/u with Endocrinology. Plan of care d/wed patient bedside. time spent >37 min...
[2017-08-17 09:21] LABS: ABSOLUTE BASOPHIL COUNT 0 /CUMM (0.0-0.2); ABSOLUTE EOSINOPHIL COUNT 0.5 /CUMM (0.0-0.7); ABSOLUTE GRANULOCYTE CT 4.7 /CUMM (1.4-6.5); ABSOLUTE LYMPH COUNT 1.9 /CUMM (1.2-3.4); ABSOLUTE MONOCYTE COUNT 0.5 /CUMM (0.10-0.60); BASOPHIL % 0.3 % (0.0-2.0); EOSINOPHIL % 6.6 % (0-5); GRANULOCYTE % 61.7 % (42.2-75.2); HEMATOCRIT 30.7 % (42-52); MEAN CORPUSCULAR HGB 27.3 PG (27.0-31.0); MEAN CORPUSCULAR HGB CONC 32.9 G/DL (33.0-37.0); MEAN CORPUSCULAR VOLUME 82.9 FL (80.0-94.0); MEAN PLATELET VOLUME 7.4 FL (7.4-10.4); PLATELET COUNT 438 /CUMM (130-400); RBC DISTRIBUTION WIDTH 13.4 % (11.5-14.5); RED BLOOD CELL CT 3.71 /CUMM (4.70-6.10); WHITE BLOOD CELL COUNT 7.7 /CUMM (4.8-10.8)
--- NOTE | 2017-08-17 14:00 | RADIOLOGY REPORT ---
EXAMINATION: CR PORTABLE CHEST CLINICAL INFORMATION: PICC line placement. COMPARISON: None TECHNIQUE: Portable AP semierect view of the chest was obtained. FINDINGS: The right subclavian PICC line is in place with tip poorly visualized but likely in the mid to distal SVC. The cardiomediastinal silhouette is within normal limits in size. Lungs bilaterally are symmetrically expanded and clear. No focal consolidation, effusion or pneumothorax is seen. Bony structures are unremarkable. IMPRESSION: PICC line tip likely within the mid to distal SVC. No pneumothorax.
[2017-08-17 14:12] VITALS: BP 112/70
--- NOTE | 2017-08-17 16:16 | PN- Infect Dx ---
Subjective Subjective: No fever; feeling well. S/P R arm PICC line placement; no local redness or pain. Review of Systems Comments: 12 points reviewed as noted, otherwise negative. Objective Last 24 Hrs of Vital Signs/I&O Vital Signs Date Time Temp Pulse Resp B/P B/P Pulse O2 O2 Flow FiO2 Mean Ox Delivery Rate 08/17 1412 98.0 78 18 112/70 96 Room Air 08/17 0630 97.8 80 20 112/68 95 Room Air 08/16 2243 98.0 77 20 110/60 96 Room Air Intake & Output 08/17 1600 08/17 0800 08/17 0000 Intake Total 360 250 580 Output Total 400 1225 300 Balance -40 -975 280 Intake, IV 250 100 Intake, Oral 360 480 Output, Urine 400 1225 300 Physical Exam Other Physical Findings: Afebrile. He is awake and alert in no acute distress. Skin reveals no rash. HEENT negative. Neck is supple with no adenopathy. Lungs are clear. Heart regular rhythm with no murmur. Abdomen is soft, nontender with positive bowel sounds. Back no CVA tenderness. Extremities right foot dressing intact; venous stasis changes both lower extremities Neuro neuropathy both Results Last 24 Hours of Lab Results: Laboratory Tests 08/17 0753 Chemistry Sodium (137 - 145 mmol/L) 140 Potassium (3.5 - 5.1 mmol/L) 4.6 Chloride (98 - 107 mmol/L) 103 Carbon Dioxide (22 - 30 mmol/L) 26 Anion Gap (5 - 16) 11 BUN (9 - 20 mg/dL) 15 Creatinine (0.7 - 1.2 mg/dL) 0.7 Estimated GFR (>60 ml/min) > 60 BUN/Creatinine Ratio (7 - 25 %) 21.4 Hematology CBC w Diff NO MAN DIFF REQ WBC (4.8 - 10.8 /CUMM) 7.7 RBC (4.70 - 6.10 /CUMM) 3.71 L Hgb (14.0 - 18.0 G/DL) 10.1 L Hct (42 - 52 %) 30.7 L MCV (80.0 - 94.0 FL) 82.9 MCH (27.0 - 31.0 PG) 27.3 RDW (11.5 - 14.5 %) 13.4 Plt Count (130 - 400 /CUMM) 438 H MPV (7.4 - 10.4 FL) 7.4 Gran % (42.2 - 75.2 %) 61.7 Lymphocytes % (20.5 - 51.1 %) 25.1 Monocytes % (1.7 - 9.3 %) 6.3 Eosinophils % (0 - 5 %) 6.6 H Basophils % (0.0 - 2.0 %) 0.3 Absolute Granulocytes (1.4 - 6.5 /CUMM) 4.7 Absolute Lymphocytes (1.2 - 3.4 /CUMM) 1.9 Absolute Monocytes (0.10 - 0.60 /CUMM) 0.5 Absolute Eosinophils (0.0 - 0.7 /CUMM) 0.5 Absolute Basophils (0.0 - 0.2 /CUMM) 0 PUBS MCHC (33.0 - 37.0 G/DL) 32.9 L ESR Westergren (0 - 10 MM) 101 H Last 24 Hours of Frank Results: SPEC #: [id number] GAVI: 08/12/17 STATUS: COMP RECD: 08/12/[address]: Luis Miguel Chavez DPM SOURCE: EXTREMITIE ENTR: 08/12/[address]: Cipriano CORRALES,Sammie Varma SPDESC: JAYJAY Ibrahim MD,[facility] Patient Has No Primary Care Dr ORDERED: XTRMOR COMMENT: ADDITIONAL INFORMATION: SOFT TISSUE SMALL PIECE OF BLOODY TISSUE REC'D Procedure Result > GRAM STAIN Final 08/13/17-1004 WHITE BLOOD CELLS RARE GRAM POSITIVE COCCI MANY IN PAIRS GRAM NEGATIVE RODS MANY GRAM POSITIVE RODS MANY > EXTREMITIES OR SPECIMEN Final 08/17/17-09 Heavy growth of: 1. PROTEUS MIRABILIS 2. BETA STREP GROUP G Penicillin and Ampicillin are drugs of choice for beta-hemolytic streptococcal infections. Susceptibility testing of penicillins and other beta-lactams are not routinely performed because non-susceptible isolates have only rarely been reported. Note: If patient is allergic to Penicillin, the laboratory can perform Clindamycin testing upon request. Please call within 5 days of final report. Called to/Readback by EDDIE by [email or web address] 08/13/17 1200 Light growth of: 4. GRAM NEGATIVE RODS ALCALIGENES 5. STAPH AUREUS PLEASE SEE B777 FOR SENSI 6. DIPHTHEROIDS P.mirabili GNR RX AB RX AB ------ -- ------ -- AMPICILLIN S CEFAZOLIN S AMOX/CLAV AUGM S AMP/SULB-UNASYN S CIPROFLOXACIN S S GENTAMICIN S S TRIMETH/SULFA S S 1. PROTEUS MIRABILIS RX AB ------ -- AMPICILLIN S CEFAZOLIN S AMOXICILLIN/CLAVULINIC ACID S AMPICILLIN/SULBACTAM S CIPROFLOXACIN S GENTAMICIN S TRIMETHOPRIM/SULFAMETHOXAZOLE S 3. GRAM NEGATIVE RODS RX AB ------ -- CIPROFLOXACIN S GENTAMICIN S TRIMETHOPRIM/SULFAMETHOXAZOLE S Recent Imaging Studies: reviewed Assessment/Plan Impression: 62-year-old man with no past medical history admitted on August 12 with a one- month history of swelling over the dorsum of the right foot and a callous on the plantar aspect, with intermittent drainage, and a 4 to 5 day history of discoloration of the toes of the right foot, found to be afebrile with a leukocytosis and with an x-ray of the right foot revealing findings suggestive of osteomyelitis of the first through fourth MTP joints, now status post right foot TMA. Stable, with temperatures and white blood cell count normal, on Unasyn for a polymicrobial osteomyelitis, status post a right transmetatarsal amputation 5 days ago and a revisional debridement 08/14/17. Wound cx from 08/12 grew MSSA, Enterococcus, Strep gr B and Proteus mirabilis. Suggestion: 1. He will require a 4 week course of antibiotics for a presumed residual osteomyelitis; weekly CBC, BMP, ESR while on iv abx. 2. R arm PICC line care 3. Continue Unasyn D #01/28.
--- NOTE | 2017-08-17 16:54 | PN- Diabetes ---
Assessment/Plan Assessment: This 62-year-old male presented to the emergency room with gangrene and gas formation in his right foot. He was taken to the operating room by Dr. Chavez. He denies any previous history of diabetes but his blood sugars were found to be high. In addition his hemoglobin A1c was 12.6 prior to admission consistent with uncontrolled diabetes. He was put on Levemir 8 units twice a day and Novolog coverage before meals, Novolog coverage at bedtime. His diet was changed from the consistent carbohydrates diet 3 to the consistent carbohydrates diet 1. Levemir was increased to 10 units twice a day and Novolog coverage before meals was adjusted on 08/15/2017. The patient's fingerstick blood sugars today so far are 154 before breakfast and 184 before lunch. Apparently the patient is going to be n.p.o. after midnight for surgery tomorrow a.m. Plan: Suggest that we begin at midnight D5 half-normal saline at 75 cc/h. We need to reduce his Levemir tonight to 5 units at [address] him on sliding scale NovoLog every 4 hours while n.p.o starting at midnight. Sliding scale NovoLog while n.p.o. should be less than 150 give no coverage, 151-200 give 2 units NovoLog, 201-250 give 3 units NovoLog, 251-300 give 4 units NovoLog, 301- 350 give 5 units NovoLog, 351-400 give 6 units NovoLog. When the patient is eating again we should resume his previous insulin. Subjective Subjective: Feels okay Review of Systems Constitutional: Denies: chills, fever. Cardiovascular: Denies: chest pain. Respiratory: Denies: cough, short of breath. Gastrointestinal: Denies: abdominal pain, nausea, vomiting. Objective Last 24 Hrs of Vital Signs/I&O Vital Signs Date Time Temp Pulse Resp B/P B/P Pulse O2 O2 Flow FiO2 Mean Ox Delivery Rate 08/17 1412 98.0 78 18 112/70 96 Room Air 08/17 0630 97.8 80 20 112/68 95 Room Air 08/16 2243 98.0 77 20 110/60 96 Room Air Intake & Output 08/17 1600 08/17 0800 08/17 0000 Intake Total 360 250 580 Output Total 400 1225 300 Balance -40 -975 280 Intake, IV 250 100 Intake, Oral 360 480 Output, Urine 400 1225 300 Vital Signs Date Time Temp Pulse Resp B/P B/P Pulse O2 O2 Flow FiO2 Mean Ox Delivery Rate 08/17 1412 98.0 78 18 112/70 96 Room Air 08/17 0630 97.8 80 20 112/68 95 Room Air 08/16 2243 98.0 77 20 110/60 96 Room Air Intake & Output 08/17 1600 08/17 0800 08/17 0000 Intake Total 360 250 580 Output Total 400 1225 300 Balance -40 -975 280 Intake, IV 250 100 Intake, Oral 360 480 Output, Urine 400 1225 300 Physical Exam General Appearance: alert, awake, comfortable Neck: normal inspection Respiratory: normal breath sounds Cardiovascular: regular rate/rhythm Extremities: normal inspection (right foot bandaged), right foot bandaged Current Medications: Current Medications Sig/Rosanne Start time Last Medication Dose Route Stop Time Status Admin Acetaminophen 650 MG Q6P PRN 08/12 1615 AC PO Acetaminophen 1,000 MG Q6P PRN 08/12 1615 AC IV Ampicillin Sodium/ 3,000 MG Q6 08/12 2359 AC 08/17 Sulbactam Sodium IV 1246 Sodium Chloride 100 ML Insulin Aspart 0 AT BEDTIME 08/13 2200 AC 08/16 SC 2205 Insulin Aspart 0 TIDAC 08/13 1700 AC 08/17 SC 1245 Insulin Detemir 10 UNITS BID 08/15 2200 AC 08/17 SC 0758 Morphine Sulfate 2 MG Q6-PRN PRN 08/12 1615 AC IV Sodium Chloride 1,000 ML Q13H 08/18 0000 AC IV Findings Pertinent Lab/Frank Results: Laboratory Tests 08/17 0753 Chemistry Sodium (137 - 145 mmol/L) 140 Potassium (3.5 - 5.1 mmol/L) 4.6 Chloride (98 - 107 mmol/L) 103 Carbon Dioxide (22 - 30 mmol/L) 26 Anion Gap (5 - 16) 11 BUN (9 - 20 mg/dL) 15 Creatinine (0.7 - 1.2 mg/dL) 0.7 Estimated GFR (>60 ml/min) > 60 BUN/Creatinine Ratio (7 - 25 %) 21.4 Hematology CBC w Diff NO MAN DIFF REQ WBC (4.8 - 10.8 /CUMM) 7.7 RBC (4.70 - 6.10 /CUMM) 3.71 L Hgb (14.0 - 18.0 G/DL) 10.1 L Hct (42 - 52 %) 30.7 L MCV (80.0 - 94.0 FL) 82.9 MCH (27.0 - 31.0 PG) 27.3 RDW (11.5 - 14.5 %) 13.4 Plt Count (130 - 400 /CUMM) 438 H MPV (7.4 - 10.4 FL) 7.4 Gran % (42.2 - 75.2 %) 61.7 Lymphocytes % (20.5 - 51.1 %) 25.1 Monocytes % (1.7 - 9.3 %) 6.3 Eosinophils % (0 - 5 %) 6.6 H Basophils % (0.0 - 2.0 %) 0.3 Absolute Granulocytes (1.4 - 6.5 /CUMM) 4.7 Absolute Lymphocytes (1.2 - 3.4 /CUMM) 1.9 Absolute Monocytes (0.10 - 0.60 /CUMM) 0.5 Absolute Eosinophils (0.0 - 0.7 /CUMM) 0.5 Absolute Basophils (0.0 - 0.2 /CUMM) 0 PUBS MCHC (33.0 - 37.0 G/DL) 32.9 L ESR Westergren (0 - 10 MM) 101 H
[2017-08-17 22:32] VITALS: BP 110/60
[2017-08-18 06:06] VITALS: BP 96/68
[2017-08-18 07:48] LABS: ABSOLUTE BASOPHIL COUNT 0 /CUMM (0.0-0.2); ABSOLUTE EOSINOPHIL COUNT 0.5 /CUMM (0.0-0.7); ABSOLUTE GRANULOCYTE CT 5.5 /CUMM (1.4-6.5); ABSOLUTE LYMPH COUNT 2.2 /CUMM (1.2-3.4); ABSOLUTE MONOCYTE COUNT 0.4 /CUMM (0.10-0.60); BASOPHIL % 0.5 % (0.0-2.0); EOSINOPHIL % 6.2 % (0-5); GRANULOCYTE % 62.9 % (42.2-75.2); HEMATOCRIT 30.2 % (42-52); MEAN CORPUSCULAR HGB 27.7 PG (27.0-31.0); MEAN CORPUSCULAR HGB CONC 33.2 G/DL (33.0-37.0); MEAN CORPUSCULAR VOLUME 83.5 FL (80.0-94.0); MEAN PLATELET VOLUME 7.3 FL (7.4-10.4); PLATELET COUNT 432 /CUMM (130-400); RBC DISTRIBUTION WIDTH 13.7 % (11.5-14.5); RED BLOOD CELL CT 3.61 /CUMM (4.70-6.10); WHITE BLOOD CELL COUNT 8.8 /CUMM (4.8-10.8)
--- NOTE | 2017-08-18 07:51 | PN- Diabetes ---
Assessment/Plan Assessment: This 62-year-old male presented to the emergency room with gangrene and gas formation in his right foot. He was taken to the operating room by Dr. Chavez. He denies any previous history of diabetes but his blood sugars were found to be high. In addition his hemoglobin A1c was 12.6 prior to admission consistent with uncontrolled diabetes. He was put on Levemir 8 units twice a day and Novolog coverage before meals, Novolog coverage at bedtime. The patient is presently n.p.o. for surgery later today. His fingerstick blood sugars are 163 and 186. He is on NovoLog coverage every 4 hours. He is on D5 half-normal saline at 75 cc/h. Plan: Suggest continue the present regimen with glucose in the IV and q. 4 hour NovoLog coverage. When the patient is eating again resume his usual insulin. Subjective Subjective: Patient is anxious Review of Systems Constitutional: Denies: chills, fever. Cardiovascular: Denies: chest pain. Respiratory: Denies: short of breath. Gastrointestinal: Denies: abdominal pain, nausea, vomiting. Objective Last 24 Hrs of Vital Signs/I&O Vital Signs Date Time Temp Pulse Resp B/P B/P Pulse O2 O2 Flow FiO2 Mean Ox Delivery Rate 08/18 605 97.8 67 20 96/ 95 Room Air 08/17 2231 98.1 74 20 110/60 96 08/17 1412 98.0 78 18 112/70 96 Room Air Intake & Output 08/18 0000 08/17 1600 Intake Total 930 360 Output Total 1400 400 Balance -470 -40 Intake, IV 130 Intake, Oral 800 360 Output, Urine 1400 400 Patient 204 lb Weight Vital Signs Date Time Temp Pulse Resp B/P B/P Pulse O2 O2 Flow FiO2 Mean Ox Delivery Rate 08/18 605 97.8 67 20 96/68 95 Room Air 08/17 2231 98.1 74 20 110/60 96 08/17 1412 98.0 78 18 112/70 96 Room Air Intake & Output 08/18 0808/18 0000 08/17 1600 Intake Total 930 360 Output Total 1400 400 Balance -470 -40 Intake, IV 130 Intake, Oral 800 360 Output, Urine 1400 400 Patient 204 lb Weight Physical Exam General Appearance: well developed/nourished Head: normal appearance Neck: normal inspection Respiratory: normal breath sounds Abdomen: normal bowel sounds Current Medications: Current Medications Sig/Rosanne Start time Last Medication Dose Route Stop Time Status Admin Acetaminophen 650 MG Q6P PRN 08/12 161 AC PO Acetaminophen 1,000 MG Q6P PRN 08/12 161 AC IV Ampicillin Sodium/ 3,000 MG Q6 08/12 2359 AC 08/18 Sulbactam Sodium IV 0554 Sodium Chloride 100 ML Dextrose/Sodium 1,000 ML Q13H 08/18 0000 AC 08/17 Chloride IV 2357 Insulin Aspart 0 Q4H 08/18 0000 AC 08/18 SC 0445 Insulin Aspart 0 AT BEDTIME 08/13 2200 DC 08/17 SC 08/18 0000 2011 Insulin Aspart 0 TIDAC 08/13 1700 DC 08/17 SC 08/18 0000 1716 Insulin Detemir 5 UNITS BID 08/17 2200 AC 08/17 SC 2011 Insulin Detemir 10 UNITS BID 08/15 2200 DC 08/17 SC 0758 Morphine Sulfate 2 MG Q6-PRN PRN 08/12 161 AC IV Sodium Chloride 1,000 ML Q13H 08/18 0000 CAN IV Findings Pertinent Lab/Frank Results: Laboratory Tests 08/18 08/17 0545 0753 Chemistry Sodium (137 - 145 mmol/L) Pending 140 Potassium (3.5 - 5.1 mmol/L) Pending 4.6 Chloride (98 - 107 mmol/L) Pending 103 Carbon Dioxide (22 - 30 mmol/L) Pending 26 Anion Gap (5 - 16) Pending 11 BUN (9 - 20 mg/dL) Pending 15 Creatinine (0.7 - 1.2 mg/dL) Pending 0.7 Estimated GFR (>60 ml/min) > 60 BUN/Creatinine Ratio (7 - 25 %) Pending 21.4 Coagulation PT Pending INR Pending Hematology CBC w Diff Pending NO MAN DIFF REQ WBC (4.8 - 10.8 /CUMM) Pending 7.7 RBC (4.70 - 6.10 /CUMM) Pending 3.71 L Hgb (14.0 - 18.0 G/DL) Pending 10.1 L Hct (42 - 52 %) Pending 30.7 L MCV (80.0 - 94.0 FL) Pending 82.9 MCH (27.0 - 31.0 PG) Pending 27.3 RDW (11.5 - 14.5 %) Pending 13.4 Plt Count (130 - 400 /CUMM) Pending 438 H MPV (7.4 - 10.4 FL) Pending 7.4 Gran % (42.2 - 75.2 %) 61.7 Lymphocytes % (20.5 - 51.1 %) 25.1 Monocytes % (1.7 - 9.3 %) 6.3 Eosinophils % (0 - 5 %) 6.6 H Basophils % (0.0 - 2.0 %) 0.3 Absolute Granulocytes (1.4 - 6.5 /CUMM) 4.7 Absolute Lymphocytes (1.2 - 3.4 /CUMM) 1.9 Absolute Monocytes (0.10 - 0.60 /CUMM) 0.5 Absolute Eosinophils (0.0 - 0.7 /CUMM) 0.5 Absolute Basophils (0.0 - 0.2 /CUMM) 0 PUBS MCHC (33.0 - 37.0 G/DL) Pending 32.9 L ESR Westergren (0 - 10 MM) 101 H
[2017-08-18 07:58] LABS: PT 12.2 SEC (9.4-12.5)
--- NOTE | 2017-08-18 08:34 | PN- Housestaff ---
Paulo CORRALES,[facility] 08/18/17 0834: Subjective Follow-up For: osteomyelitis Subjective: No acute events overnight. Has no pain. Review of Systems Constitutional: Reports: no symptoms. Cardiovascular: Reports: no symptoms. Respiratory: Reports: no symptoms. Gastrointestinal: Reports: no symptoms. Genitourinary: Reports: no symptoms. Musculoskeletal: Reports: no symptoms, see HPI. Skin: Reports: see HPI. Objective Last 24 Hrs of Vital Signs/I&O Vital Signs Date Time Temp Pulse Resp B/P B/P Pulse O2 O2 Flow FiO2 Mean Ox Delivery Rate 08/18 2227 98.1 78 18 122/60 95 08/18 1401 98.7 75 20 110/70 95 Room Air 08/18 0606 97.8 67 20 96/68 95 Room Air Intake & Output 08/18 1600 08/18 0800 08/18 0000 Intake Total 900 460 930 Output Total 473 435 9481 Balance 450 -115 -470 Intake, IV 300 460 130 Intake, Oral 600 0 800 Number 0 Bowel Movements Output, Urine 544 287 8995 Patient 204 lb Weight Physical Exam General Appearance: Alert, Oriented X3, Cooperative, No Acute Distress Skin: R foot with dressing and wound vac Cardiovascular: Regular Rate, Normal S1, Normal S2 Lungs: Clear to Auscultation, Normal Air Movement Abdomen: Normal Bowel Sounds, Soft, No Tenderness Extremities: 2+ radial pulse Current Medications: Current Medications Sig/Rosanne Start time Last Medication Dose Route Stop Time Status Admin Acetaminophen 650 MG Q6P PRN 08/12 1615 AC PO Acetaminophen 1,000 MG Q6P PRN 08/12 1615 AC IV Ampicillin Sodium/ 3,000 MG Q6 08/12 2359 08/18 Sulbactam Sodium IV 1709 Sodium Chloride 100 ML Dextrose/Sodium 1,000 ML Q13H 08/19 0000 CAN Chloride IV Dextrose/Sodium 1,000 ML Q13H 08/18 0000 DC 08/17 Chloride IV 2357 Insulin Aspart 0 Q4H 08/19 0000 CAN SC Insulin Aspart 0 AT BEDTIME 08/18 2200 AC 08/18 NM 08/19 0150 2050 Insulin Aspart 0 TIDAC 08/18 1200 AC 08/18 SC 08/19 1150 1709 Insulin Aspart 0 Q4H 08/18 0000 DC 08/18 SC 0812 Insulin Aspart 0 AT BEDTIME 08/13 2200 DC 08/17 SC 08/18 0000 2012 Insulin Aspart 0 TIDAC 08/13 1700 DC 08/17 SC 08/18 0000 1716 Insulin Detemir 10 UNITS BID 08/18 2200 DC 08/18 SC 08/18 2355 1220 Insulin Detemir 5 UNITS BID 08/180 CAN SC Insulin Detemir 10 UNITS BID 08/18 220 AC 08/18 SC 2048 Insulin Detemir 5 UNITS BID 08/17 2199 DC 08/17 NM 2011 Morphine Sulfate 2 MG Q6-PRN PRN 08/12 1615 AC IV Last 24 Hrs of Lab/Frank Results Last 24 Hrs of Labs/Mics: Laboratory Tests 08/18/17 0545: Anion Gap 11, Estimated GFR > 60, BUN/Creatinine Ratio 25.7 H, PT 12.2, INR 1.16, CBC w Diff NO MAN DIFF REQ, RBC 3.61 L, MCV 83.5, MCH 27.7, RDW 13.7, MPV 7.3 L, Gran % 62.9, Lymphocytes % 25.3, Monocytes % 5.1, Eosinophils % 6.2 H, Basophils % 0.5, Absolute Granulocytes 5.5, Absolute Lymphocytes 2.2, Absolute Monocytes 0.4, Absolute Eosinophils 0.5, Absolute Basophils 0, PUBS MCHC 33.2 Assessment/Plan Assessment: 62 yo M with no significant pmhx presents gangrenous right foot s/p open MTA most likely due to diabetes #gangernous R foot Currently s/p open MTA wbc 22.1 -> 8.8 CRP >9.0 LE arterial doppler normal Foot xray:erosions at the first MTP joint, subluxation of the second through fourth MTP joints, and fracture versus erosion at the head of the second metatarsal. presence of soft tissue gas and swelling with adjacent osseous irregularities Aterial duplex of LE = negative cx: gram - rods, staph aureus, enteroccoccus, group b strep, proteus mirabilis, diptheroids -PT NOT GOING TO OR TODAY OR TOMORROW -has PICC placed. pt will need 4 weeks of abx -continue unasyn per ID -weekly esr while on unasyn -leg elevation with compression stockings on discharge. f/u with vascular surgery -f/u blood and biopsy cultures #diabetes Blood sugars elevated 300+ upon admission Pt also reports neuropathy, dysuria, and weightloss Bun 18, Cr 1.1 -> 0.7 HgbA1c 12.6 -f/u endo recommendations for BS control -discharge with glucometer and insulin teaching #electrolyte abnormalities - resolved na 132 -> 136 -> 140 K 5.2 -> 4.6 -> 4.7 -continue to monitor and correct as needed #dvt prophylaxis sub q heparin but holding for surgery tomorrow #FULL CODE Problem List: 1. Osteomyelitis 2. Diabetes Pain Ratin Pain Location: none Pain Goal: Pain 4 or less Pain Plan: pain pathway Tomorrow's Labs & Rationales: cbc bep Sharath Ibrahim 08/18/17 1122: Attending MD Review Statement Attending Statement Attending MD Statement: examined this patient, discuss w/resident/PA/CALL CENTER ANALYST, agreed w/resident/PA/CALL CENTER ANALYST, discussed with family, reviewed EMR data (avail), discussed with nursing, discussed with case mgmt, reviewed images, amended to note Attending Assessment/Plan: Pt was seen and examined. Reports doing better. Afebrile, FBS sl improved. Wound vac+ with drainage as per nursing. Patient had surgery as per podiatry service. Patient is on iv antibiotics as per ID service. Patient needs PICC line placement for iv abx. He is scheduled for OR tomorrow. Endo following for new onset DM. Hb a1c >12. On insulin, titrate as needed. Provide diabetes education and insulin administration teaching. Conuslt case management for dc planning. PCP referral at discharge. O/p f/u with podiatry, o/p f/u with Endocrinology. Plan of care d/wed patient bedside.
[2017-08-18 14:01] VITALS: BP 110/70
--- NOTE | 2017-08-18 16:42 | PN- Infect Dx ---
Subjective Subjective: Afebrile without complaints Objective Last 24 Hrs of Vital Signs/I&O Vital Signs Date Time Temp Pulse Resp B/P B/P Pulse O2 O2 Flow FiO2 Mean Ox Delivery Rate 08/18 1401 98.7 75 20 110/70 95 Room Air 08/18 0606 97.8 67 20 96/68 95 Room Air 08/17 2232 98.1 74 20 110/60 96 Intake & Output 08/18 1600 08/18 0800 08/18 0000 Intake Total 900 460 930 Output Total 927 548 3838 Balance 450 -115 -470 Intake, IV 300 460 130 Intake, Oral 600 0 800 Number 0 Bowel Movements Output, Urine 972 293 3635 Patient 204 lb Weight Physical Exam Other Physical Findings: He appears comfortable in no acute distress Extremities right foot TMA wound clean, with no surrounding erythema or drainage ; PICC in place in the right upper extremity Results Last 24 Hours of Lab Results: Laboratory Tests 08/18 0545 Chemistry Sodium (137 - 145 mmol/L) 140 Potassium (3.5 - 5.1 mmol/L) 4.7 Chloride (98 - 107 mmol/L) 101 Carbon Dioxide (22 - 30 mmol/L) 28 Anion Gap (5 - 16) 11 BUN (9 - 20 mg/dL) 18 Creatinine (0.7 - 1.2 mg/dL) 0.7 Estimated GFR (>60 ml/min) > 60 BUN/Creatinine Ratio (7 - 25 %) 25.7 H Coagulation PT (9.4 - 12.5 SEC) 12.2 INR (0.90 - 1.17) 1.16 Hematology CBC w Diff NO MAN DIFF REQ WBC (4.8 - 10.8 /CUMM) 8.8 RBC (4.70 - 6.10 /CUMM) 3.61 L Hgb (14.0 - 18.0 G/DL) 10.0 L Hct (42 - 52 %) 30.2 L MCV (80.0 - 94.0 FL) 83.5 MCH (27.0 - 31.0 PG) 27.7 RDW (11.5 - 14.5 %) 13.7 Plt Count (130 - 400 /CUMM) 432 H MPV (7.4 - 10.4 FL) 7.3 L Gran % (42.2 - 75.2 %) 62.9 Lymphocytes % (20.5 - 51.1 %) 25.3 Monocytes % (1.7 - 9.3 %) 5.1 Eosinophils % (0 - 5 %) 6.2 H Basophils % (0.0 - 2.0 %) 0.5 Absolute Granulocytes (1.4 - 6.5 /CUMM) 5.5 Absolute Lymphocytes (1.2 - 3.4 /CUMM) 2.2 Absolute Monocytes (0.10 - 0.60 /CUMM) 0.4 Absolute Eosinophils (0.0 - 0.7 /CUMM) 0.5 Absolute Basophils (0.0 - 0.2 /CUMM) 0 PUBS MCHC (33.0 - 37.0 G/DL) 33.2 Last 24 Hours of Frank Results: OR cultures August 12 labeled right foot bone and soft tissue positive for Group G strep, Staph aureus sensitive to Oxacillin, Proteus mirabilis, Alcaligenes, Enterococcus sensitive to Ampicillin and diphtheroids Assessment/Plan Impression: Stable, with temperatures and white blood cell count remaining normal, on Unasyn for a polymicrobial osteomyelitis, now 4 days status post a revisional debridement of the right foot and 8 days status post his initial right transmetatarsal amputation. He remains on Unasyn, which can be continued for 4 weeks from his most recent debridement, for residual osteomyelitis. Suggestion: 1. Would obtain a postoperative baseline x-ray of the right foot 2. Continue Unasyn to complete a 4 week course of antibiotics from his most recent debridement (until September 11) 3. Weekly ESR while on Unasyn
[2017-08-18 22:27] VITALS: BP 122/60
[2017-08-19 06:17] VITALS: BP 112/72
--- NOTE | 2017-08-19 08:07 | PN- Diabetes ---
Assessment/Plan Assessment: This 62-year-old male presented to the emergency room with gangrene and gas formation in his right foot. He was taken to the operating room by Dr. Chavez. He denies any previous history of diabetes but his blood sugars were found to be high. In addition his hemoglobin A1c was 12.6 prior to admission consistent with uncontrolled diabetes. He is presently on Levemir 10 units twice a day and Novolog coverage before meals, Novolog coverage at bedtime. The patient apparently was placed back on the wound VAC and did not have closure of his wound yesterday. He states he will see Dr. Chavez in the wound clinic in a week or so and perhaps in 2 weeks closure might be considered.. Plan: Suggest continue the present dose of Levemir for now. Since the patient has type 2 diabetes we can begin metformin 500 mg twice a day before breakfast and before dinner. Since we are starting Metformin I would decrease the patient's sliding scale NovoLog before meals. Sliding scale NovoLog before meals should be 80-150 give 3 units NovoLog, 151-200 give 4 units NovoLog, 201-250 give 5 units NovoLog, 251 -300 give 6 units NovoLog, 301-350 give 7 units NovoLog, 351-400 give 8 units NovoLog. Bedtime sliding scale NovoLog should stay the same. Subjective Subjective: Feels okay Review of Systems Constitutional: Denies: chills, fever. Cardiovascular: Denies: chest pain. Respiratory: Denies: short of breath. Gastrointestinal: Denies: nausea, vomiting. Objective Last 24 Hrs of Vital Signs/I&O Vital Signs Date Time Temp Pulse Resp B/P B/P Pulse O2 O2 Flow FiO2 Mean Ox Delivery Rate 08/19 616 98.5 72 20 112/72 96 Room Air 08/18 2226 98.1 78 18 122/60 95 08/18 1401 98.7 75 20 110/70 95 Room Air Intake & Output 08/19 1600 08/19 0800 08/19 0000 Intake Total 130 1060 Output Total 350 1000 Balance -220 60 Intake, IV 130 260 Intake, Oral 0 800 Number 0 Bowel Movements Output, Urine 350 1000 Vital Signs Date Time Temp Pulse Resp B/P B/P Pulse O2 O2 Flow FiO2 Mean Ox Delivery Rate 08/19 616 98.5 72 20 112/72 96 Room Air 01/16 2227 98.1 78 18 122/60 95 08/18 1401 98.7 75 20 110/70 95 Room Air Intake & Output 08/19 1600 08/19 0800 08/19 0000 Intake Total 130 1060 Output Total 350 1000 Balance -220 60 Intake, IV 130 260 Intake, Oral 0 800 Number 0 Bowel Movements Output, Urine 350 1000 Physical Exam General Appearance: alert, awake Head: normal appearance Neck: normal inspection Respiratory: normal breath sounds Cardiovascular: regular rate/rhythm Extremities: right foot bandaged Current Medications: Current Medications Sig/Rosanne Start time Last Medication Dose Route Stop Time Status Admin Acetaminophen 650 MG Q6P PRN 08/12 1615 AC PO Acetaminophen 1,000 MG Q6P PRN 08/12 1615 AC IV Ampicillin Sodium/ 3,000 MG Q6 08/12 2359 AC 08/19 Sulbactam Sodium IV 0550 Sodium Chloride 100 ML Dextrose/Sodium 1,000 ML Q13H 08/19 0000 CAN Chloride IV Dextrose/Sodium 1,000 ML Q13H 08/18 0000 DC 08/17 Chloride IV 2357 Insulin Aspart 0 Q4H 08/19 0000 CAN SC Insulin Aspart 0 AT BEDTIME 08/18 2200 DC 08/18 AK 08/19 0150 2050 Insulin Aspart 0 TIDAC 08/18 1200 AC 08/18 AK 08/19 1150 1709 Insulin Aspart 0 Q4H 08/18 0000 DC 08/18 AK 0812 Insulin Detemir 10 UNITS BID 08/18 2200 DC 08/18 AK 08/18 2355 1220 Insulin Detemir 5 UNITS BID 08/18 2200 CAN SC Insulin Detemir 10 UNITS BID 08/18 2200 08/18 AK 2049 Insulin Detemir 5 UNITS BID 08/17 2200 DC 08/17 AK 2012 Morphine Sulfate 2 MG Q6-PRN PRN 08/12 1615 AC IV Findings Pertinent Lab/Frank Results: Laboratory Tests 08/19 0530 Chemistry Sodium Pending Potassium Pending Chloride Pending Carbon Dioxide Pending Anion Gap Pending BUN Pending Creatinine Pending BUN/Creatinine Ratio Pending Hematology CBC w Diff Pending WBC Pending RBC Pending Hgb Pending Hct Pending MCV Pending MCH Pending RDW Pending Plt Count Pending MPV Pending PUBS MCHC Pending
[2017-08-19 08:15] LABS: ABSOLUTE BASOPHIL COUNT 0.1 /CUMM (0.0-0.2); ABSOLUTE EOSINOPHIL COUNT 0.5 /CUMM (0.0-0.7); ABSOLUTE GRANULOCYTE CT 6.5 /CUMM (1.4-6.5); ABSOLUTE MONOCYTE COUNT 0.5 /CUMM (0.10-0.60); BASOPHIL % 0.6 % (0.0-2.0); EOSINOPHIL % 5.4 % (0-5); HEMATOCRIT 30.3 % (42-52); MEAN CORPUSCULAR HGB 27.4 PG (27.0-31.0); MEAN CORPUSCULAR HGB CONC 32.8 G/DL (33.0-37.0); MEAN CORPUSCULAR VOLUME 83.6 FL (80.0-94.0); MEAN PLATELET VOLUME 7.3 FL (7.4-10.4); PLATELET COUNT 409 /CUMM (130-400); RBC DISTRIBUTION WIDTH 13.9 % (11.5-14.5); RED BLOOD CELL CT 3.62 /CUMM (4.70-6.10); WHITE BLOOD CELL COUNT 9.6 /CUMM (4.8-10.8)
--- NOTE | 2017-08-19 13:13 | RADIOLOGY REPORT ---
EXAMINATION: XR FOOT, RIGHT CLINICAL INFORMATION: Postoperative imaging right foot. COMPARISON: 08/12/2017. TECHNIQUE: AP, lateral, and oblique views of the right foot. FINDINGS: A drain is present over the dorsum of the foot, at the site of the mid foot/forefoot amputation, at the level of the proximal/mid metatarsals. No low density is identified to suggest presence of a focal fluid collection either in the soft tissue structures or adjacent to the bony structures. The cortical margins of the remaining bony structures are smooth.. IMPRESSION: Postoperative changes, mid/forefoot amputation right foot.
--- NOTE | 2017-08-19 13:48 | PN- Student ---
Subjective Subjective: 62 yo M hospital day 7 for gangrene and osteomyelitis. PMHx of recently diagnosed DM2. Was initially planned to return to the OR yesterday (08/18) but surgery was postponed and the patient is to be discharged tomorrow with wound vacuum in place. X-ray of R foot (08/19): no low density areas identified to suggest presence of a focal fluid collection either in the soft tissue structures or adjacent to the bony structures. The cortical margins of the remaining bony structures are smooth. Patient states he slept well last night and is feeling no pain. Denies any shortness of breath, dizziness, n/v, bowel or bladder dysfunction, or change in appetite. Objective Objective: Vital Signs Date Time Temp Pulse Resp B/P B/P Pulse O2 O2 Flow FiO2 Mean Ox Delivery Rate 08/19 0617 98.5 72 20 112/72 96 Room Air 08/18 2227 98.1 78 18 122/60 95 08/18 1401 98.7 75 20 110/70 95 Room Air Intake & Output 08/19 1600 08/19 0800 08/19 0000 Intake Total 130 1060 Output Total 100 512 5554 Balance -300 -220 60 Intake, IV 130 260 Intake, Oral 0 800 Number 0 Bowel Movements Output, Urine 787 566 3341 Appearance: AxO in NAD Cardiovascular: RRR, no MRG Pulmonary: Lungs clear to ausclatation, no adventitious sounds present Abdomen: Normoactive bowel sounds, soft to palpation, no rigidity or TTP present Extremities: R foot is currently wrapped in a clean, dry, and intact bandage with the wound vacuum suction in place. Calves are free of edema, erythema, or TTP. 2+ posterior tibialis bilaterally. PICC line is in place in the right arm , the area is not erythematous or warm. Current Medications Sig/Rosanne Start time Last Medication Dose Route Stop Time Status Admin Acetaminophen 650 MG Q6P PRN 08/12 1615 AC PO Acetaminophen 1,000 MG Q6P PRN 08/12 1615 AC IV Ampicillin Sodium/ 3,000 MG Q6 08/12 2359 AC 08/19 Sulbactam Sodium IV 1116 Sodium Chloride 100 ML Dextrose/Sodium 1,000 ML Q13H 08/19 0000 CAN Chloride IV Insulin Aspart 0 AT BEDTIME 08/19 2200 AC SC Insulin Aspart 0 TIDAC 08/19 1700 DC SC Insulin Aspart 0 TIDAC 08/19 1315 AC 08/19 [place] 1305 Insulin Aspart 0 Q4H 08/19 0000 CAN SC Insulin Aspart 0 AT BEDTIME 08/18 2200 DC 08/18 SC 08/19 0150 2050 Insulin Aspart 0 TIDAC 08/18 1200 DC 08/19 NV 08/19 1150 0932 Insulin Detemir 10 UNITS BID 08/18 2200 DC 08/18 SC 08/18 2355 1220 Insulin Detemir 5 UNITS BID 08/18 2200 CAN SC Insulin Detemir 10 UNITS BID 08/18 2200 AC 08/19 NV 0932 Metformin HCl 500 MG 1/2H B/BREAKF/DINNER 08/19 1630 AC PO Morphine Sulfate 2 MG Q6-PRN PRN 08/12 1615 IV Patient Medication 1 ED ONE ONE 08/19 1200 NM Teaching ED 08/19 1201 Results Results: Laboratory Tests 08/19/17 0530: Anion Gap 10, Estimated GFR > 60, BUN/Creatinine Ratio 30.0 H, CBC w Diff NO MAN DIFF REQ, RBC 3.62 L, MCV 83.6, MCH 27.4, RDW 13.9, MPV 7.3 L, Gran % 68.0 , Lymphocytes % 20.6, Monocytes % 5.4, Eosinophils % 5.4 H, Basophils % 0.6, Absolute Granulocytes 6.5, Absolute Lymphocytes 2.0, Absolute Monocytes 0.5, Absolute Eosinophils 0.5, Absolute Basophils 0.1, PUBS MCHC 32.8 L 08/18/17 0545: Anion Gap 11, Estimated GFR > 60, BUN/Creatinine Ratio 25.7 H, PT 12.2, INR 1.16, CBC w Diff NO MAN DIFF REQ, RBC 3.61 L, MCV 83.5, MCH 27.7, RDW 13.7, MPV 7.3 L, Gran % 62.9, Lymphocytes % 25.3, Monocytes % 5.1, Eosinophils % 6.2 H, Basophils % 0.5, Absolute Granulocytes 5.5, Absolute Lymphocytes 2.2, Absolute Monocytes 0.4, Absolute Eosinophils 0.5, Absolute Basophils 0, PUBS MCHC 33.2 08/17/17 0753: Anion Gap 11, Estimated GFR > 60, BUN/Creatinine Ratio 21.4, CBC w Diff NO MAN DIFF REQ, RBC 3.71 L, MCV 82.9, MCH 27.3, RDW 13.4, MPV 7.4, Gran % 61.7, Lymphocytes % 25.1, Monocytes % 6.3, Eosinophils % 6.6 H, Basophils % 0.3, Absolute Granulocytes 4.7, Absolute Lymphocytes 1.9, Absolute Monocytes 0.5, Absolute Eosinophils 0.5, Absolute Basophils 0, PUBS MCHC 32.9 L, ESR Westergren 101 H Assessment/Plan Assessment: 62 yo M hospital day 7 for gangrene and osteomyelitis. PMHx of recently diagnosed DM2. To be discharged tomorrow. Plan: 1. Osteomyelitis * X-ray: A drain is present over the dorsum of the foot, at the site of the midfoot/forefoot amputation, at the level of the proximal/mid metatarsals. No low density is identified to suggest presence of a focal fluid collection either in the soft tissue structures or adjacent to the bony structures. The cortical margins of the remaining bony structures are smooth. * Abx: Unasyn 3g q6hr IV for a 4 week course via PICC line per ID (until 2017) * Discharged home tomorrow with appointment to wound care center in 1 week * Appointment with Dr. Chavez after discharge, he will decide in the outpatient setting when to return to the OR for wound closure. * Patient education for administering meds through PICC line * Weekly ESR while on Unasyn 2. DVT Prophylaxis: Compression stocking on L leg 3. DM2 * Novolog (sliding scale) before meals and bed * Levemir 10 u BID * Metformin 500 mg BID (30 minutes before breakfast and 30 minutes before dinner ) * Patient education 4. Pain management: Morphine and acetaminophen 5. Full Code
--- NOTE | 2017-08-19 14:12 | PN- Housestaff ---
Paulo CORRALES,[facility] 08/19/17 1411: Subjective Follow-up For: osteomyelitis new onset diabetes Subjective: No acute events overnight. No pain. Asking about discharge planning. Review of Systems Constitutional: Reports: no symptoms. Cardiovascular: Reports: no symptoms. Respiratory: Reports: no symptoms. Gastrointestinal: Reports: no symptoms. Genitourinary: Reports: no symptoms. Musculoskeletal: Reports: no symptoms, see HPI. Skin: Reports: see HPI. Objective Last 24 Hrs of Vital Signs/I&O Vital Signs Date Time Temp Pulse Resp B/P B/P Pulse O2 O2 Flow FiO2 Mean Ox Delivery Rate 08/19 1529 97.6 81 18 108/70 95 08/19 0617 98.5 72 20 112/72 96 Room Air 08/18 2227 98.1 78 18 122/60 95 Intake & Output 08/19 1600 08/19 0800 08/19 0000 Intake Total 130 1060 Output Total 466 885 3320 Balance -300 -220 60 Intake, IV 130 260 Intake, Oral 0 800 Number 0 Bowel Movements Output, Urine 131 358 8228 Physical Exam General Appearance: Alert, Oriented X3, Cooperative Skin: R foot covered in dressing with wound vac Cardiovascular: Regular Rate, Normal S1, Normal S2 Lungs: Clear to Auscultation, Normal Air Movement Abdomen: Normal Bowel Sounds, Soft, No Tenderness Extremities: 2+ radial pulses Current Medications: Current Medications Sig/Rosanne Start time Last Medication Dose Route Stop Time Status Admin Acetaminophen 650 MG Q6P PRN 08/12 1615 AC PO Acetaminophen 1,000 MG Q6P PRN 08/12 1615 AC IV Ampicillin Sodium/ 3,000 MG Q6 08/12 2359 AC 08/19 Sulbactam Sodium IV 1116 Sodium Chloride 100 ML Dextrose/Sodium 1,000 ML Q13H 08/19 0000 CAN Chloride IV Insulin Aspart 0 AT BEDTIME 08/19 2200 AC SC Insulin Aspart 0 TIDAC 08/19 1700 DC SC Insulin Aspart 0 TIDAC 08/19 1315 AC 08/19 SC 1305 Insulin Aspart 0 Q4H 08/19 0000 CAN SC Insulin Aspart 0 AT BEDTIME 08/18 2200 DC 08/18 RI 08/19 0150 2050 Insulin Aspart 0 TIDAC 08/18 1200 DC 08/19 SC 08/19 1150 0932 Insulin Detemir 10 UNITS BID 08/18 2200 DC 08/18 RI 08/18 2355 1220 Insulin Detemir 5 UNITS BID 08/18 2200 CAN SC Insulin Detemir 10 UNITS BID 08/18 2200 AC 08/19 RI 0932 Metformin HCl 500 MG 1/2H B/BREAKF/DINNER 08/19 1630 AC PO Morphine Sulfate 2 MG Q6-PRN PRN 08/12 1615 AC IV Patient Medication 1 ED ONE ONE 08/19 1200 DC 08/19 Teaching ED 08/19 1201 1419 Last 24 Hrs of Lab/Frank Results Last 24 Hrs of Labs/Mics: Laboratory Tests 08/19/17 0530: Anion Gap 10, Estimated GFR > 60, BUN/Creatinine Ratio 30.0 H, CBC w Diff NO MAN DIFF REQ, RBC 3.62 L, MCV 83.6, MCH 27.4, RDW 13.9, MPV 7.3 L, Gran % 68.0 , Lymphocytes % 20.6, Monocytes % 5.4, Eosinophils % 5.4 H, Basophils % 0.6, Absolute Granulocytes 6.5, Absolute Lymphocytes 2.0, Absolute Monocytes 0.5, Absolute Eosinophils 0.5, Absolute Basophils 0.1, PUBS MCHC 32.8 L Assessment/Plan Assessment: 62 yo M with no significant pmhx presents gangrenous right foot s/p open MTA most likely due to diabetes #gangernous R foot Currently s/p open MTA wbc 22.1 -> 9.6 CRP >9.0 LE arterial doppler normal Foot xray:erosions at the first MTP joint, subluxation of the second through fourth MTP joints, and fracture versus erosion at the head of the second metatarsal. presence of soft tissue gas and swelling with adjacent osseous irregularities Aterial duplex of LE = negative cx: gram - rods, staph aureus, enteroccoccus, group b strep, proteus mirabilis, diptheroids -PT will be discharge with wound vac and follow up with wound care center 1 week later -has PICC placed. pt will need 4 weeks of abx -continue unasyn per ID -weekly esr while on unasyn -leg elevation with compression stockings on discharge. f/u with vascular surgery -f/u blood and biopsy cultures #diabetes Blood sugars elevated 300+ upon admission Pt also reports neuropathy, dysuria, and weightloss Bun 21, Cr 1.1 -> 0.7 HgbA1c 12.6 -f/u endo recommendations for BS control -discharge with glucometer and insulin teaching #electrolyte abnormalities - resolved na 132 -> 136 -> 140 K 5.2 -> 4.6 -> 4.6 -continue to monitor and correct as needed #dvt prophylaxis sub q heparin but holding for surgery tomorrow #FULL CODE Problem List: 1. Osteomyelitis 2. Diabetes Pain Ratin Pain Location: none Pain Goal: Pain 4 or less Pain Plan: pain pathway Tomorrow's Labs & Rationales: cbc bep Sharath Ibrahim 08/19/17 1422: Attending MD Review Statement Attending Statement Attending MD Statement: examined this patient, discuss w/resident/PA/DENITRATOR OPERATOR, agreed w/resident/PA/DENITRATOR OPERATOR, discussed with family, reviewed EMR data (avail), discussed with nursing, discussed with case mgmt, reviewed images, amended to note Attending Assessment/Plan: Pt was seen and examined. Reports doing better. Afebrile, FBS sl improved. Wound vac+ with drainage as per nursing. Patient had surgery as per podiatry service. Patient is on iv antibiotics as per ID service. Patient needs PICC line placement for iv abx. Endo following for new onset DM. Hb a1c >12. On insulin, titrate as needed. Provide diabetes education and insulin administration teaching. Conuslt case management for dc planning. PCP referral at discharge Dr Bonilla appointment within a week. O/p f/u with podiatry, o/p f/u with Endocrinology.
[2017-08-19 15:29] VITALS: BP 108/70
[2017-08-19 23:02] VITALS: BP 106/72
[2017-08-20 06:20] VITALS: BP 118/70
--- NOTE | 2017-08-20 07:54 | PN- Housestaff ---
Paulo CORRALES,[facility] 08/20/17 0754: Subjective Follow-up For: osteomyelitis diabetes Subjective: No acute events overnight. States no pain. Review of Systems Constitutional: Reports: no symptoms. Cardiovascular: Reports: no symptoms. Respiratory: Reports: no symptoms. Gastrointestinal: Reports: no symptoms. Genitourinary: Reports: no symptoms. Musculoskeletal: Reports: no symptoms. Skin: Reports: see HPI. Objective Last 24 Hrs of Vital Signs/I&O Vital Signs Date Time Temp Pulse Resp B/P B/P Pulse O2 O2 Flow FiO2 Mean Ox Delivery Rate 08/20 0620 97.9 68 20 118/70 97 Room Air 08/19 2302 97.5 75 20 106/72 96 Room Air Intake & Output 08/20 1600 08/20 0800 08/20 0000 Intake Total 200 320 930 Output Total 400 675 650 Balance -200 -355 280 Intake, IV 200 220 130 Intake, Oral 100 800 Output, 25 Drainage Output, Urine 400 650 650 Physical Exam General Appearance: Alert, Oriented X3, Cooperative, No Acute Distress Skin: R foot covered in dressing Cardiovascular: Regular Rate, Normal S1, Normal S2 Lungs: Clear to Auscultation, Normal Air Movement Abdomen: Normal Bowel Sounds, Soft, No Tenderness Extremities: 2+ radial pulse, wound vac draining minimal bloody fluid Current Medications: Current Medications Sig/Rosanne Start time Last Medication Dose Route Stop Time Status Admin Acetaminophen 650 MG Q6P PRN 08/12 1615 DCD PO Acetaminophen 1,000 MG Q6P PRN 08/12 1615 DCD IV Ampicillin Sodium/ 3,000 MG Q6 08/12 2359 DCD 08/20 Sulbactam Sodium IV 1136 Sodium Chloride 100 ML Insulin Aspart 0 AT BEDTIME 08/19 2200 DCD SC Insulin Aspart 0 TIDAC 08/19 1315 DCD 08/20 SC 0735 Insulin Detemir 10 UNITS BID 08/18 2200 DCD 08/20 SC 0736 Metformin HCl 500 MG 1/2H B/BREAKF/DINNER 08/19 1630 DCD 08/20 PO 0735 Morphine Sulfate 2 MG Q6-PRN PRN 08/12 1615 DCD IV Last 24 Hrs of Lab/Frank Results Last 24 Hrs of Labs/Mics: Laboratory Tests 08/20/17 0523: Anion Gap 11, Estimated GFR > 60, BUN/Creatinine Ratio 30.0 H, CBC w Diff NO MAN DIFF REQ, RBC 3.69 L, MCV 83.2, MCH 27.6, RDW 14.1, MPV 7.2 L, Gran % 68.9 , Lymphocytes % 19.3 L, Monocytes % 6.4, Eosinophils % 4.7, Basophils % 0.7, Absolute Granulocytes 7.1 H, Absolute Lymphocytes 2.0, Absolute Monocytes 0.7 H, Absolute Eosinophils 0.5, Absolute Basophils 0.1, PUBS MCHC 33.2 Assessment/Plan Assessment: 62 yo M with no significant pmhx presents gangrenous right foot s/p open MTA most likely due to diabetes #gangernous R foot Currently s/p open MTA wbc 22.1 -> 10.3 CRP >9.0 LE arterial doppler normal Foot xray:erosions at the first MTP joint, subluxation of the second through fourth MTP joints, and fracture versus erosion at the head of the second metatarsal. presence of soft tissue gas and swelling with adjacent osseous irregularities Aterial duplex of LE = negative cx: gram - rods, staph aureus, enteroccoccus, group b strep, proteus mirabilis, diptheroids -PT will be discharge with wound vac and follow up with wound care center 1 week later -has PICC placed. pt will need 4 weeks of abx -continue Unasyn to complete a 4 week course of antibiotics (until September 11) -weekly esr while on unasyn -leg elevation with compression stockings on discharge. f/u with vascular surgery -f/u blood and biopsy cultures #diabetes Blood sugars elevated 300+ upon admission Pt also reports neuropathy, dysuria, and weightloss Bun 21, Cr 1.1 -> 0.7 HgbA1c 12.6 -metformin and levemir BID per endo -discharge with glucometer and insulin teaching #electrolyte abnormalities - resolved na 132 -> 136 -> 142 K 5.2 -> 4.6 -> 4.5 -continue to monitor and correct as needed #dvt prophylaxis sub q heparin but holding for surgery tomorrow #FULL CODE Problem List: 1. Diabetes 2. Osteomyelitis Pain Ratin Pain Location: none Pain Goal: Pain 4 or less Pain Plan: pain pathway Tomorrow's Labs & Rationales: none Sharath Ibrahim 08/20/17 1121: Attending MD Review Statement Attending Statement Attending MD Statement: examined this patient, discuss w/resident/PA/MEETING/EVENT PLANNER, agreed w/resident/PA/MEETING/EVENT PLANNER, discussed with family, reviewed EMR data (avail), discussed with nursing, discussed with case mgmt, reviewed images, amended to note Attending Assessment/Plan: Pt was seen and examined. Reports doing better. Afebrile, FBS sl improved. Wound vac+ with drainage as per nursing. Patient had surgery as per podiatry service. Patient is on iv antibiotics as per ID service. Patient needs PICC line placement for iv abx. Endo following for new onset DM. Hb a1c >12. On insulin, titrate as needed. Provided diabetes education and insulin administration teaching. Conuslt case management for dc planning. PCP referral at discharge Dr Bonilla appointment tomorrow 3 pm. O/p f/u with podiatry in 1-2 weeks, o/p f/u with Endocrinology in 1-2 weeks.
--- NOTE | 2017-08-20 07:56 | PN- Diabetes ---
Assessment/Plan Assessment: This 62-year-old male presented to the emergency room with gangrene and gas formation in his right foot. He was taken to the operating room by Dr. Chavez. He denies any previous history of diabetes but his blood sugars were found to be high. In addition his hemoglobin A1c was 12.6 prior to admission consistent with uncontrolled diabetes. He is presently on Levemir 10 units twice a day and Novolog coverage before meals, Novolog coverage at bedtime. Yesterday introduce Metformin 500 mg twice a day. His sugars have now come down into the 150s. The patient apparently was placed back on the wound VAC and did not have closure of his wound yesterday. He states he will see Dr. Chavez in the wound clinic in a week or so and perhaps in 2 weeks closure might be considered.. Plan: Suggest if the patient is discharged today he be discharged on Levemir 8 units twice a day. In addition we will keep him on metformin 500 mg twice a day. We can stop the NovoLog coverage. He can check his sugars twice a day at home before breakfast and before dinner. He can follow-up in the office. Eventually we would like to get him on oral agents and be able to stop the insulin. Subjective Subjective: Feels okay Review of Systems Constitutional: Denies: chills, fever. Cardiovascular: Denies: chest pain. Gastrointestinal: Denies: abdominal pain, nausea, vomiting. Objective Last 24 Hrs of Vital Signs/I&O Vital Signs Date Time Temp Pulse Resp B/P B/P Pulse O2 O2 Flow FiO2 Mean Ox Delivery Rate 08/20 619 97.9 68 20 118/70 97 Room Air 08/192 97.5 75 20 106/72 96 Room Air 08/19 1529 97.6 81 18 108/70 95 Intake & Output 08/20 0800 08/20 0000 08/19 1600 Intake Total 320 930 Output Total 675 650 300 Balance -355 280 -300 Intake, IV 220 130 Intake, Oral 100 800 Output, 25 Drainage Output, Urine 650 650 300 Vital Signs Date Time Temp Pulse Resp B/P B/P Pulse O2 O2 Flow FiO2 Mean Ox Delivery Rate 08/20 0620 97.9 68 20 118/70 97 Room Air 08/19 2302 97.5 75 20 106/72 96 Room Air 08/19 1529 97.6 81 18 108/70 95 Intake & Output 08/20 0800 08/20 0000 08/19 1600 Intake Total 320 930 Output Total 675 650 300 Balance -355 280 -300 Intake, IV 220 130 Intake, Oral 100 800 Output, 25 Drainage Output, Urine 650 650 300 Physical Exam General Appearance: alert, awake, comfortable Head: normal appearance Neck: normal inspection Respiratory: normal breath sounds Cardiovascular: regular rate/rhythm Abdomen: normal bowel sounds, soft Current Medications: Current Medications Sig/Rosanne Start time Last Medication Dose Route Stop Time Status Admin Acetaminophen 650 MG Q6P PRN 08/12 1615 AC PO Acetaminophen 1,000 MG Q6P PRN 08/12 1615 AC IV Ampicillin Sodium/ 3,000 MG Q6 08/12 2359 AC 08/20 Sulbactam Sodium IV 0515 Sodium Chloride 100 ML Insulin Aspart 0 AT BEDTIME 08/19 2200 SC Insulin Aspart 0 TIDAC 08/19 1700 DC SC Insulin Aspart 0 TIDAC 08/19 1315 AC 08/20 SC 0735 Insulin Aspart 0 TIDAC 08/18 1200 DC 08/19 SC 08/19 1150 0932 Insulin Detemir 10 UNITS BID 08/18 2200 08/20 SC 0736 Metformin HCl 500 MG 1/2H B/BREAKF/DINNER 08/19 1630 08/20 PO 0735 Morphine Sulfate 2 MG Q6-PRN PRN 08/12 161 AC IV Patient Medication 1 ED ONE ONE 08/19 1200 DC 08/19 Teaching ED 08/19 1201 1419 Findings Pertinent Lab/Frank Results: Laboratory Tests 08/20 0523 Chemistry Sodium Pending Potassium Pending Chloride Pending Carbon Dioxide Pending Anion Gap Pending BUN Pending Creatinine Pending BUN/Creatinine Ratio Pending Hematology CBC w Diff Pending WBC Pending RBC Pending Hgb Pending Hct Pending MCV Pending MCH Pending RDW Pending Plt Count Pending MPV Pending PUBS MCHC Pending
[2017-08-20] MEDS ORDERED: LEVEMIR FL100 UNIT/1 SC ×2 (08:20→09:15)
[2017-08-20] MEDS ORDERED: GLUCOPHAGE500 M1 PO ×2 (08:20→09:15)
--- NOTE | 2017-08-20 08:23 | Patient Discharge Instructions ---
Discharge Instructions General Discharge Information Special Instructions: Please follow up with your new PCP Dr. Bonilla tomorrow. Please follow up with your new duplicating machine mechanic Dr. Esteban in 1-2 weeks. Please follow up with your new vascular surgeon Dr. Reina. Please keep your leg elevated and continue compression stockings. [facility] with [facility] in 1 week . Please follow up with Dr. Chavez in 1 week. Please take your medications as instructed. Please have your ESR checked weekly. Please check your insulin before meals and keep a record of your blood sugars. Acute Coronary Syndrome Inclusion Criteria At DC or during hospital stay patient has or had the following: ACS DIAGNOSIS No Discharge Core Measures Meds if any: Prescribed or Continued at Discharge Meds if any: NOT Prescribed or Continued at Discharge Congestive Heart Failure Inclusion Criteria At DC or during hospital stay patient has or had the following: CHF DIAGNOSIS No Discharge Core Measures Meds if any: Prescribed or Continued at Discharge Meds if any: NOT Prescribed or Continued at Discharge Cerebrovascular accident Inclusion Criteria At DC or during hospital stay patient has or had the following: CVA/TIA Diagnosis No Discharge Core Measures Meds if any: Prescribed or Continued at Discharge Meds if any: NOT Prescribed or Continued at Discharge Venous thromboembolism Inclusion Criteria VTE Diagnosis No VTE Type NONE VTE Confirmed by (Test) NONE Discharge Core Measures - Per Current guidelines, there needs to be overlap - treatment for the first 5 days of Warfarin therapy. - If discharged on Warfarin prior to 5 days of - overlap therapy, the patient will need to be - assessed for post discharge needs including - *Post discharge parental anticoagulation - *Warfarin and/or parental anticoagulation education - *Follow up date to check INR post discharge At least 5 days overlap therapy as Inpatient No Meds if any: Prescribed or Continued at Discharge Note: Overlap Therapy is Warfarin and Anticoagulant Meds if any: NOT Prescribed or Continued at Discharge
[2017-08-20] MEDS ORDERED: UNASYN 3 GM VIAL3 GM IV (08:29)
[2017-08-20] MEDS ORDERED: GLUCOSE TEST S1 EACH SC ×2 (08:53→09:15)
[2017-08-20] MEDS ORDERED: LANCETS1 EACH SC ×2 (08:53→09:15)
[2017-08-20] MEDS ORDERED: NOVOFINE SC ×2 (08:53→09:15)
[2017-08-20 08:57] LABS: ABSOLUTE BASOPHIL COUNT 0.1 /CUMM (0.0-0.2); ABSOLUTE EOSINOPHIL COUNT 0.5 /CUMM (0.0-0.7); ABSOLUTE GRANULOCYTE CT 7.1 /CUMM (1.4-6.5); ABSOLUTE MONOCYTE COUNT 0.7 /CUMM (0.10-0.60); BASOPHIL % 0.7 % (0.0-2.0); EOSINOPHIL % 4.7 % (0-5); GRANULOCYTE % 68.9 % (42.2-75.2); HEMATOCRIT 30.7 % (42-52); MEAN CORPUSCULAR HGB 27.6 PG (27.0-31.0); MEAN CORPUSCULAR HGB CONC 33.2 G/DL (33.0-37.0); MEAN CORPUSCULAR VOLUME 83.2 FL (80.0-94.0); MEAN PLATELET VOLUME 7.2 FL (7.4-10.4); PLATELET COUNT 419 /CUMM (130-400); RBC DISTRIBUTION WIDTH 14.1 % (11.5-14.5); RED BLOOD CELL CT 3.69 /CUMM (4.70-6.10); WHITE BLOOD CELL COUNT 10.3 /CUMM (4.8-10.8)
--- NOTE | 2017-08-23 21:39 | Discharge Summary ---
See Addendum Visit Information Visit Dates Admission Date: 08/12/17 Discharge Date: 08/20/17 Hospital Course Course Attending Physician: Alexandria CORRALES,Sharath Primary Care Physician: Patient Has No Primary Care Dr. Brendon fair referrral to Dr. Garcia. Hospital Course: A: 62 yo M with no significant pmhx presents gangrenous right foot s/p open MTA most likely due to new onset diabetes. #gangernous R foot with new onset diabetes Initial WBC was 22.1. CRP elevated at >9.0. ESR was elevated at 101. Underwent open MTA by Dr. Chavez. Currently has a wound vac on R foot. LE arterial doppler was found to be normal. Foot xray revealed erosions at the first MTP joint, subluxation of the second through fourth MTP joints, and fracture versus erosion at the head of the second metatarsal. Presence of soft tissue gas and swelling with adjacent osseous irregularities Foot cultures revealed gram - rods , staph aureus, enteroccoccus, group b strep, proteus mirabilis, diptheroids. The patient was treated with IV antibiotics. He was discharged with a wound vac and follow up with wound care center 1 week later. He has a PICC placed and was advised to continue Unasyn to complete a 4 week course of antibiotics (until September 11). He was isntructed to get a weekly esr while on unasyn. He was also advised to elevate his leg with compression stockings on discharge. He was told by Dr. Chavez that he is ok with heel walks. The patient was advisued to follow up with vascular surgery. #diabetes Blood sugars elevated 300+ upon admission. Patient also reports neuropathy, dysuria, and weightloss. His HgbA1c was 12.6. He was discharged with metformin and levemir BID and adviused to follow up with endocrinology outpatient #MARI Initial Bun 21, Cr 1.1 and Cr improved to 0.7 with IVF #electrolyte abnormalities Initial Na was 132 and improved to 144. His K+ improved from 5.2 to 4.5. He was placed on a diabetic diet. Allergies: Coded Allergies: No Known Allergies (08/12/17) Disposition Summary Disposition Principal Diagnosis: Gangrenous right foot Additional Diagnosis: New onset diabetes MARI Discharge Disposition: home health services Discharge Instructions General Discharge Information Code Status: Full Code Patient's Diet: Diabetic Patient's Activity: Heel touch Follow-Up Instructions/Appts: Please follow up with your new PCP Dr. Bonilla tomorrow. Please follow up with your new workforce investment act career manager Dr. Esteban in 1-2 weeks. Please follow up with your new vascular surgeon Dr. Reina. Please keep your leg elevated and continue compression stockings. Please follow up with [facility] here [facility] in 1 week . Please follow up with Dr. Chavez in 1 week. Please take your medications as instructed. Please have your ESR checked weekly. Please check your insulin before meals and keep a record of your blood sugars. Medications at Discharge Discharge Medications: Start taking the following new medications: Pen Needle, Diabetic (Novofine) 30 GAUGE X 1/3" DIS.NEEDLE 1 Unit Inject into fatty tissue TWICE DAILY Qty = 1 No Refills Instructions: . Lancets (Lancets) 1 EACH EACH 1 Unit Inject into fatty tissue BEFORE MEALS AND AT BEDTIME Qty = 1 Refills = 1 Instructions: . Insulin Detemir (Levemir Flextouch) 100 UNIT/ML (3 ML) INSULN.PEN 8 Units Inject into fatty tissue TWICE DAILY Qty = 10 No Refills Instructions: . Comments: Last Taken: 08/20/17 Time: 8:00 AM (10 UNITS IN HOSPITAL) Metformin Hydochloride (Glucophage) 500 MG TABLET 1 Tablet ORAL 1/2 HR BEFORE BREAKFAST/DINNER Qty = 60 No Refills Instructions: . Comments: Last Taken: 08/20/17 Time: 8:00 AM Blood Sugar Diagnostic (Glucose Test Strip) 1 EACH STRIP 1 STRIP Inject into fatty tissue BEFORE MEALS AND AT BEDTIME Qty = 1 Refills = 1 Instructions: . Ampicillin Sodium/Sulbactam Na (Unasyn 3 Gm Vial) 3 GRAM VIAL 3 Gram INTRAVEN EVERY SIX HOURS Qty = 90 No Refills Instructions: PLEASE CONTINUE UNASYN 3GM IV EVERY 6 HOURS. YOUR LAST DAY WILL BE . Comments: Last Taken: 08/20/17 Time: 11:30 AM Copies To: Radha CORRALES,Radha
== END 2017-08-20 15:20 | disposition home health service (06) | DRG 239 ==
LOC: ERH 10:31 → 2NA 14:59 → ERHI 14:59 → 2NA 16:41 → EDBEDREQTM 18:15 → EDBEDREQ 18:15 → ENRESERV 18:18 → ENTRNSPT 19:05 → CMPTRNSPT 19:26 → 2NA 19:35 → ENTRNSPT 08-14 14:44 → EDTRNSPT 08-14 14:50 → EDTRNSPTSTS 08-14 14:50 → CMPTRNSPT 08-14 14:55 → 2NA 08-17 09:17 → ENPENDDIS 08-20 10:48 → ENTRNSPT 08-20 15:11 → EDTRNSPTSTS 08-20 15:16 → 2NA 08-20 15:20 → CMPTRNSPT 08-20 15:27
PROVIDERS: Internal Medicine; Internal Medicine Hematology & Oncology; Physician Assistant Medical; Student in an Organized Health Care Education/Training Program
PROC: 0Y6M0Z9 Detachment at Right Foot, Partial 1st Ray, Open Approach (ICD-10-PCS; principal; 2017-08-12)
PROC: 0Y6M0ZB Detachment at Right Foot, Partial 2nd Ray, Open Approach (ICD-10-PCS; 2017-08-12)
PROC: 0Y6M0ZC Detachment at Right Foot, Partial 3rd Ray, Open Approach (ICD-10-PCS; 2017-08-12)
PROC: 0Y6M0ZD Detachment at Right Foot, Partial 4th Ray, Open Approach (ICD-10-PCS; 2017-08-12)
PROC: 0Y6M0ZF Detachment at Right Foot, Partial 5th Ray, Open Approach (ICD-10-PCS; 2017-08-12)
PROC: 0QBN0ZZ Excision of Right Metatarsal, Open Approach (ICD-10-PCS; 2017-08-14)
PROC: 05HY33Z Insertion of Infusion Device into Upper Vein, Percutaneous Approach (ICD-10-PCS; 2017-08-17)
DX: E11.52 Type 2 diabetes mellitus with diabetic peripheral angiopathy with gangrene (principal); A48.0 Gas gangrene; N17.9 Acute kidney failure, unspecified; E11.42 Type 2 diabetes mellitus with diabetic polyneuropathy; L97.219 Non-pressure chronic ulcer of right calf with unspecified severity; M86.8X7 Other osteomyelitis, ankle and foot; E11.622 Type 2 diabetes mellitus with other skin ulcer; E11.69 Type 2 diabetes mellitus with other specified complication; I87.2 Venous insufficiency (chronic) (peripheral)
CPT/HCPCS: 2NASP; 87070; 87075; 87184; 36415; 71045; 73630-RT; 82436; 87040; 87071; 87147; 88307; 93005; 93010; 96374; 97116-GO; 97161-GP; 97530-GO; C1769; C9399; J0713; J1644; J1815; J2001; J7042

== ENCOUNTER → 2017-09-29 | Day surgery (SDC) | payer OTHER ==
--- NOTE | 2017-09-27 20:10 | History & Physical Pre-Op ---
General Information and HPI History of Present Illness: Jaime is a 62-year-old male status post open TMA right foot 4 gangrene and osteomyelitis. The patient has been undergoing negative pressure wound therapy with periodic debridements and the wound center. The wound bed is now optimized for definitive closure consisting of split-thickness skin grafting. Allergies/Medications Allergies: Coded Allergies: No Known Allergies (08/12/17) Home Med list Insulin Detemir (Levemir Flextouch) 100 UNIT/ML (3 ML) INSULN.PEN 8 UNITS SC BID DIABETES . 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 Heart sounds rate and rhythm regular. Lower extremity physical exam demonstrates intact pedal pulses bilaterally. Pulses dorsalis pedis and posterior tibial arteries are palpable bilaterally. Patient noted to have a sensory deficit in a moccasin type distribution bilaterally. Wound bed is noted to be uniformly granular with a superficial overlying slough. No probing or undermining identified. Minimal serous drainage identified. Assessment/Plan Assessment/Plan: Nonhealing ulcer right foot. A lengthy discussion reviewing both surgical and conservative options with the patient at bedside and the patient elects to go forward with surgery despite the risks. As Ranked By This Provider Problem List: 1. Non-pressure chronic ulcer of right heel and midfoot with fat layer exposed Attending MD Review Statement Attending Statement Attending MD Statement: examined this patient
[~2017-09-29] VITALS: Ht 182.9 cm; Wt 92.5 kg
[~2017-09-29] MED LIST: GLUCOPHAGE500 M1 PO; GLUCOSE TEST S1 EACH SC; LANCETS1 EACH SC; LEVEMIR FL100 UNIT/1 SC; METFORMIN HCL500 M3 PO; NOVOFINE SC; UNASYN 3 GM VIAL3 GM IV
--- NOTE | 2017-09-29 17:05 | Operative Report ---
Operative/Inv Procedure Report Surgery Date: 09/29/17 Name of Procedure: 1 split-thickness skin graft right foot 2 negative pressure wound therapy right foot 3 intraoperative administration of ankle block anesthesia Pre-Operative Diagnosis: 1 nonhealing ulcer right foot 2 diabetic peripheral neuropathy Post-Operative Diagnosis: The same Estimated Blood Loss: less than 50ml Surgeon/Spiritual Minister: Kathy MATIAS,Luis Miguel Acosta DPM Anesthesia: moderate sedation, block Operative/Procedure Note Note: After obtaining informed consent the patient was brought to the operating room and placed on the operating table in the supine position. The patient isn't securely fastened to the operating table utilizing safety belt. After administration of IV sedation, 10 mL of 0.5% Marcaine plain was infiltrated about the patient's right right ankle. The foot and ankle and lower extremity then scrubbed prepped and draped in usual aseptic manner. Attention directed to the distal right foot, where a large granuloma wound bed was identified and distal stump of the right foot. The open wound was noted to measure 10 cm x 3 cm. Within overlying superficial slough. The slough was then curetted and irrigated with 3 L normal sterile saline infusion 50,000 units of bacitracin. Following this, a 17 1007 eminence but the skin graft was elevated from the lateral leg. It was then stabilized at its margins on the recipient site utilizing skin breanne. The Zulma the application of Adaptic and negative pressure wound therapy. The donor site was dressed with rastafarian Xeroform and a Kerlix. The patient is noted tolerate both procedure and anesthesia well and the patient was transported from the operating room to recovery with vital signs stable.
== END ==
LOC: STS 03:05
DX: E11.621 Type 2 diabetes mellitus with foot ulcer (principal); E11.42 Type 2 diabetes mellitus with diabetic polyneuropathy; L97.512 Non-pressure chronic ulcer of other part of right foot with fat layer exposed; Z79.4 Long term (current) use of insulin
CPT/HCPCS: J0690; J1885; J2001; J2250; J3490